=== PATIENT | female | born 1935 | race Caucasian/White ===

== ENCOUNTER 2018-10-24 19:40 | Emergency (ER) | payer MEDICARE ==
[2018-10-24 20:55] VITALS: BP 125/91; PULSE 107
[2018-10-24 20:58] VITALS: O2SAT 96
--- NOTE | 2018-10-24 20:58 | ERPHSYRPT ---
- History of Present Illness Time Seen by Provider: 10/24/18 20:10 Source: patient, family Exam Limitations: no limitations Patient Subjective Stated Complaint: pt states he bp at home was running high. states bottom number was 115. denies headache, blurred vision. pt uses wrist bp cuff at home Triage Nursing Assessment: pt alert and oriented, answers questions approp. pt ambulatory with steady gait noted. respirations nonlabored with lungs cta. puplis equal and reactive. bilat upper and lower ext strength wnl. Physician History: 83 y/o white female presents with high blood pressure at home. pt states she has no sx but has been following her bp today and the dbp elevated and pt concerned. pt wanted to be evaluated. pts bp meds recently increased Timing/Duration: today Severity: mild Modifying Factors: Improves With: medication (improved her bp) Associated Symptoms: denies symptoms Allergies/Adverse Reactions: No Known Drug Allergies Allergy (Verified 10/24/18 20:07) Home Medications: Amiodarone HCl 200 mg [Cordarone 200 MG] 200 mg PO DAILY 10/24/18 [History ] Apixaban [Eliquis] 5 mg PO BID 10/24/18 [History] Aspirin EC 81 mg [Ecotrin 81 mg] 81 mg PO DAILY 10/24/18 [History] Levothyroxine Sodium 100 Mcg [Synthroid 100 Mcg] 100 mcg PO DAILY 10/24/18 [History] Lisinopril 10 mg [Zestril 10 MG] 10 mg PO BID 10/24/18 [History] Metoprolol Tartrate 50 mg [Lopressor 50 MG] 75 mg PO BID 10/24/18 [History ] Multivit with Iron,Minerals [Compete] 1 each PO DAILY 10/24/18 [History] Potassium Chloride 10 Meq Tab* [Klor Con 10 MEQ] 10 meq PO BID 10/24/18 [ History] Simvastatin 10 mg PO DAILY 10/24/18 [History] Hx Tetanus, Diphtheria Vaccination/Date Given: Yes Hx Influenza Vaccination/Date Given: Yes Hx Pneumococcal Vaccination/Date Given: Yes Immunizations Up to Date: Yes - Review of Systems Constitutional: No Symptoms Eyes: No Symptoms Ears, Nose, & Throat: No Symptoms Respiratory: No Symptoms Cardiac: No Symptoms Abdominal/Gastrointestinal: No Symptoms Genitourinary Symptoms: No Symptoms Musculoskeletal: No Symptoms Skin: No Symptoms Neurological: No Symptoms Psychological: No Symptoms Endocrine: No Symptoms Hematologic/Lymphatic: No Symptoms Immunological/Allergic: No Symptoms All Other Systems: Reviewed and Negative - Past Medical History Pertinent Past Medical History: Yes Neurological History: No Pertinent History ENT History: No Pertinent History Cardiac History: Arrhythmia, Congestive Heart Failure, Coronary Artery Disease, Hypertension Endocrine Medical History: Hypothyroidism Musculoskeletal History: No Pertinent History GI Medical History: No Pertinent History History: Renal Disease Psycho-Social History: No Pertinent History Female Reproductive Disorders: No Pertinent History Other Medical History: cardiac stents 2005 - Past Surgical History Past Surgical History: Yes Neuro Surgical History: No Pertinent History Cardiac: No Pertinent History Respiratory: No Pertinent History Gastrointestinal: No Pertinent History Genitourinary: No Pertinent History Musculoskeletal: No Pertinent History Female Surgical History: Hysterectomy - Social History Smoking Status: Former smoker Exposure to second hand smoke: No Drug Use: none Patient Lives Alone: No - Nursing Vital Signs Nursing Vital Signs: Initial Vital Signs Temperature 97.5 F 10/24/18 19:52 Pulse Rate 114 H 10/24/18 19:52 Respiratory Rate 18 10/24/18 19:52 Blood Pressure 158/105 10/24/18 19:52 O2 Sat by Pulse Oximetry 96 10/24/18 19:52 Pain Scale Pain Intensity 0 - Physical Exam General Appearance: no apparent distress, alert, anxiety Eye Exam: PERRL/EOMI Ears, Nose, Throat Exam: normal ENT inspection, moist mucous membranes Neck Exam: normal inspection, non-tender, supple, full range of motion Respiratory Exam: normal breath sounds, lungs clear, airway intact, No chest tenderness, No respiratory distress, No accessory muscle use, No rhonchi, No wheezing, No stridor Cardiovascular Exam: regular rate/rhythm, normal heart sounds, normal peripheral pulses Gastrointestinal/Abdomen Exam: soft, normal bowel sounds, No tenderness, No guarding, No rebound Pelvic Exam: not done Rectal Exam: not done Back Exam: normal inspection, normal range of motion, No CVA tenderness, No vertebral tenderness Extremity Exam: normal inspection, normal range of motion, pelvis stable Neurologic Exam: alert, oriented x 3, 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 keep a log and notify your prescribing doctor. take your medications as prescribed
== END 2018-10-24 21:09 | disposition home or self-care (01) ==
LOC: ED 19:40
DX: I10 Essential (primary) hypertension (principal); Z79.899 Other long term (current) drug therapy; Z79.01 Long term (current) use of anticoagulants
CPT/HCPCS: 99283

== ENCOUNTER 2019-01-24 14:31 | Observation (INO) | payer MEDICARE ==
[2019-01-24] MEDS ORDERED: Sodium Chloride 0.9% 1000 ML 1,000 ML ONE (14:59)
[2019-01-24] MEDS ORDERED: Sodium Chloride 0.9% 1000 ML 1,000 ML IV SCH (15:00)
[2019-01-24 15:12] LABS: BASOPHIL % 0.9 % (0.0-0.4); Basophil (Absolute #) 0.04 (0-0.4); Eosinophil % 1.9 % (0.00-5.0); Eosinophil (Absolute #) 0.09 (0-0.5); Granulocyte Absolute (ANC) 3.62 (1.4-6.9); Hematocrit 41.2 % (35-47); Lymphocyte (Absolute #) 0.49 (1.0-4.6); Lymphocytes % 10.6 % (24.0-44.0); Mean Cell Volume 94.5 fl (78-100); Mean Corpuscular Hemoglobin 29.8 pg (26-32); Mean Corpuscular Hgb Concent. 31.6 g/dl (32-36); Mean Platelet Volume 11.5 fl (6-9.5); Monocytes % 8.6 % (0.0-12.0); Platelet Count 155 K/mm3 (150-450); Red Blood Count 4.36 M/mm3 (4.1-5.4); Red Cell Distribution Width 16.3 % (11.5-14.0); White Blood Count 4.6 K/mm3 (4.0-10.5)
[2019-01-24 15:33] LABS: ALBUMIN 4.1 g/dL (3.5-5.0); ALKALINE PHOSPHATASE 78 U/L (38-126); ANION GAP 16.2 MEQ/L (5-15); BLOOD UREA NITROGEN 21 mg/dL (7-17); CHLORIDE 109 mmol/L (98-107); Calcium 9.3 mg/dL (8.4-10.2); Carbon Dioxide 21 mmol/L (22-30); Creatinine 1 1.02 mg/dL (0.52-1.04); Glucose 120 mg/dL (74-106); NT PRO BNP 6000 pg/mL (0-1800); Potassium 4.9 mmol/L (3.5-5.1); SGOT/AST 36 U/L (14-36); SGPT/ALT 36 U/L (0-35); SODIUM 141 mmol/L (137-145); TROPONIN < 0.012 ng/mL (0.000-0.034); Total Protein 7.2 g/dL (6.3-8.2)
[2019-01-24 15:37] LABS: Slide Review 1 YES
--- NOTE | 2019-01-24 15:44 | ERPHSYRPT ---
- History of Present Illness Time Seen by Provider: 01/24/19 15:42 Source: patient Exam Limitations: no limitations Patient Subjective Stated Complaint: has had pain in right shoulder for two days. states is sewing a lot and thought that's what was causing it but also has hx afib and has been tired lately. Triage Nursing Assessment: ambulated to room per self. skin w/d, color normal, resp easy. denies any chest pain. pulse irregular. Physician History: has had pain in right shoulder for two days. states is sewing a lot and thought that's what was causing it but also has hx afib and has been tired lately. Timing/Duration: yesterday Chest Pain Radiation: neck Nitro Today/Relief: no nitro taken today Aspirin Treatment Today: no aspirin today Allergies/Adverse Reactions: No Known Drug Allergies Allergy (Verified 01/24/19 15:13) Home Medications: Apixaban [Eliquis] 5 mg PO BID 10/24/18 [History] Aspirin EC 81 mg [Ecotrin 81 mg] 81 mg PO DAILY 10/24/18 [History] Levothyroxine Sodium 100 Mcg [Synthroid 100 Mcg] 100 mcg PO DAILY 10/24/18 [History] Lisinopril 10 mg [Zestril 10 MG] 10 mg PO BID 10/24/18 [History] Metoprolol Tartrate 50 mg [Lopressor 50 MG] 75 mg PO BID 10/24/18 [History ] Multivit with Iron,Minerals [Compete] 1 each PO DAILY 10/24/18 [History] Potassium Chloride 10 Meq Tab* [Klor Con 10 MEQ] 10 meq PO BID 10/24/18 [ History] Simvastatin 10 mg PO DAILY 10/24/18 [History] Amlodipine Besylate 2.5 mg PO DAILY 01/24/19 [History] Ascorbic Acid [Vitamin C] 250 mg PO DAILY 01/24/19 [History] Calcium Carbonate [Calcium] 600 mg PO BID 01/24/19 [History] Cholecalciferol (Vitamin D3) [Vitamin D3] 5,000 unit PO DAILY 01/24/19 [History] Hx Tetanus, Diphtheria Vaccination/Date Given: No Hx Influenza Vaccination/Date Given: Yes Hx Pneumococcal Vaccination/Date Given: Yes - Review of Systems Constitutional: No Fever, No Chills Eyes: No Symptoms Ears, Nose, & Throat: No Symptoms Respiratory: No Cough, No Dyspnea Cardiac: No Chest Pain, No Edema, No Syncope Abdominal/Gastrointestinal: No Abdominal Pain, No Nausea, No Vomiting, No Diarrhea Genitourinary Symptoms: No Dysuria Musculoskeletal: Neck Pain, No Back Pain Skin: No Rash Neurological: No Dizziness, No Focal Weakness, No Sensory Changes Psychological: No Symptoms Endocrine: No Symptoms All Other Systems: Reviewed and Negative - Past Medical History Pertinent Past Medical History: Yes Neurological History: No Pertinent History ENT History: No Pertinent History Cardiac History: Arrhythmia, Congestive Heart Failure, Coronary Artery Disease, Hypertension Endocrine Medical History: Hypothyroidism Musculoskeletal History: No Pertinent History GI Medical History: No Pertinent History History: Renal Disease Psycho-Social History: No Pertinent History Female Reproductive Disorders: No Pertinent History Other Medical History: cardiac stents 2005 - Past Surgical History Past Surgical History: Yes Neuro Surgical History: No Pertinent History Cardiac: No Pertinent History Respiratory: No Pertinent History Gastrointestinal: No Pertinent History Genitourinary: No Pertinent History Musculoskeletal: No Pertinent History Female Surgical History: Hysterectomy - Social History Smoking Status: Former smoker Exposure to second hand smoke: No Drug Use: none Patient Lives Alone: No - Nursing Vital Signs Nursing Vital Signs: Initial Vital Signs Temperature 97.3 F 01/24/19 14:41 Pulse Rate 114 H 01/24/19 14:41 Respiratory Rate 16 01/24/19 14:41 Blood Pressure 141/99 01/24/19 14:41 O2 Sat by Pulse Oximetry 96 01/24/19 14:41 Pain Scale Pain Intensity 5 - Physical Exam General Appearance: no apparent distress, alert Eye Exam: PERRL/EOMI, eyes nml inspection Ears, Nose, Throat Exam: normal ENT inspection, moist mucous membranes Neck Exam: normal inspection, non-tender, supple Respiratory Exam: normal breath sounds, lungs clear, No respiratory distress Cardiovascular Exam: regular rate/rhythm, normal heart sounds, No edema Gastrointestinal/Abdomen Exam: soft, No tenderness, No mass Back Exam: normal inspection, No CVA tenderness, No vertebral tenderness Extremity Exam: normal inspection, normal range of motion Neurologic Exam: alert, oriented x 3, cooperative, normal mood/affect, nml cerebellar function, sensation nml, No motor deficits Skin Exam: normal color, warm, dry Lymphatic Exam: No adenopathy SpO2: 96 - Course Nursing assessment & vital signs reviewed: Yes Ordered Tests: Active Orders 24 hr Category Date Time Status Wireless Field Technician STAT Care 01/24/19 14:48 Active EKG-ER Only STAT Care 01/24/19 14:47 Active CHEST 1 VIEW (PORTABLE) Stat Exams 01/24/19 15:15 Taken CHEST WITH CONTRAST [CT] Stat Exams 01/24/19 16:39 Taken CBC W DIFF Stat Lab 01/24/19 15:00 Completed CMP Stat Lab 01/24/19 15:00 Completed D-DIMER QUANTITATION Stat Lab 01/24/19 15:00 Completed NT PRO BNP Stat Lab 01/24/19 15:00 Completed TROPONIN Stat Lab 01/24/19 15:00 Completed Transfer Order Routine Transfer 01/24/19 Ordered Medication Summary Generic Name Dose Route Start Last Admin Trade Name Freq PRN Reason Stop Dose Admin Sodium Chloride 1,000 mls @ 50 mls/hr 01/24/19 15:00 01/24/19 15:06 Sodium Chloride 0.9% 1000 Ml IV 02/23/19 14:59 50 mls/hr .Q20H PATRICIA Administration Lab/Rad Data: Laboratory Result Diagrams 01/24/19 15:00 01/24/19 15:00 Laboratory Results 01/24/19 01/24/19 01/24/19 Range/Units 15:00 15:00 15:00 WBC 4.6 (4.0-10.5) K/mm3 RBC 4.36 (4.1-5.4) M/mm3 Hgb 13.0 (12.0-16.0) gm/dl Hct 41.2 (35-47) % MCV 94.5 (78-100) fl MCH 29.8 (26-32) pg MCHC 31.6 L (32-36) g/dl RDW 16.3 H (11.5-14.0) % Plt Count 155 (150-450) K/mm3 MPV 11.5 H (6-9.5) fl Gran % 78.0 H (36.0-66.0) % Eos # (Auto) 0.09 (0-0.5) Absolute Lymphs (auto) 0.49 L (1.0-4.6) Absolute Monos (auto) 0.40 (0.0-1.3) Lymphocytes % 10.6 L (24.0-44.0) % Monocytes % 8.6 (0.0-12.0) % Eosinophils % 1.9 (0.00-5.0) % Basophils % 0.9 (0.0-0.4) % Absolute Granulocytes 3.62 (1.4-6.9) Basophils # 0.04 (0-0.4) D-Dimer 1170 H* (215-500) ng/mL Sodium 141 (137-145) mmol/L Potassium 4.9 (3.5-5.1) mmol/L Chloride 109 H (98-107) mmol/L Carbon Dioxide 21 L (22-30) mmol/L Anion Gap 16.2 H (5-15) MEQ/L BUN 21 H (7-17) mg/dL Creatinine 1.02 (0.52-1.04) mg/dL Estimated GFR 55.3 ML/MIN Glucose 120 H (74-106) mg/dL Calcium 9.3 (8.4-10.2) mg/dL Total Bilirubin 0.80 (0.2-1.3) mg/dL AST 36 (14-36) U/L ALT 36 H (0-35) U/L Alkaline Phosphatase 78 (38-126) U/L Troponin I < 0.012 (0.000-0.034) ng/mL NT-Pro-B Natriuret Pep 6000 H (0-1800) pg/mL Serum Total Protein 7.2 (6.3-8.2) g/dL Albumin 4.1 (3.5-5.0) g/dL Slides for Path Review YES - Progress Progress: improved Air Movement: good Discussed with : Keaton Counseled pt/family regarding: lab results, diagnosis, need for follow-up, rad results - Departure Time of Disposition: 17:10 Departure Disposition: Observation Clinical Impression: Chest pain, rule out acute myocardial infarction Atrial fibrillation Qualifiers: Atrial fibrillation type: chronic Qualified Code(s): I48.2 - Chronic atrial fibrillation Condition: Fair Critical Care Time: Yes Critical Care Time(excluding separately billable procedures): 30-74 minutes Referrals: ADAN WILLSON MD [Primary Care Provider] -
[2019-01-24] MEDS ORDERED: Zofran 4 MG/2 ML VIAL IV PRN (17:32)
[2019-01-24] MEDS ORDERED: Robitussin AC Syrup Unit Dose Cup PO PRN (17:32)
[2019-01-24] MEDS ORDERED: MILK OF MAGNESIA 30 ML PO PRN (17:32)
[2019-01-24] MEDS ORDERED: Senokot-S Tablet PO PRN (17:32)
[2019-01-24] MEDS ORDERED: Sodium Chloride 0.9% 500 ML 500 ML IV SCH (17:32)
[2019-01-24] MEDS ORDERED: MAALOX ES 30 ML UNIT DOSE PO PRN (17:32)
[2019-01-24] MEDS: TYLENOL 325 MG PO PRN (17:52)
--- NOTE | 2019-01-24 20:53 | XRAY ---
Indication: Right shoulder pain. Elevated d-dimer. Multiple contiguous axial images obtained through the chest using 80 cc Isovue 370 contrast and PE protocol. Comparison: None There is good opacification of the pulmonary arteries to include the lobar and segmental branches. No filling defect or pulmonary embolus. Heart is enlarged. Aorta is mildly arteriosclerotic without aneurysm/dissection. No pathologic mediastinal/hilar lymphadenopathy. Small hiatal hernia. Examination of the lung parenchyma demonstrates small right effusion and tiny left effusion. Elsewhere scattered fibrosis/scarring bilaterally and peripheral right upper lobe calcified granuloma. Bony thorax intact with osteopenia, mild degenerative changes throughout the spine, and mild dextroscoliosis. Limited upper abdomen demonstrates right renal cortical scarring with benign appearing calcification. Impression: 1. Negative pulmonary embolus. 2. Cardiomegaly with bilateral effusions favoring cardiac decompensation. 3. Incidental small hiatal hernia, right upper lobe calcified granuloma, osteopenia, and scoliosis. Comment: Preliminary interpretation was made by C. No critical discrepancy. CTDI 18.34
--- NOTE | 2019-01-24 20:55 | XRAY ---
Indication: Right shoulder pain. Comparison: None Portable chest demonstrates cardiomegaly with tiny bibasilar effusions concerning for cardiac decompensation. Incidental left midlung fibrosis/scarring and right upper lobe calcified granuloma. Bony thorax intact with mild osteopenia, degenerative changes, and mild dextroscoliosis. Impression: Cardiomegaly and bibasilar effusions. Rule out cardiac decompensation.
[2019-01-24] MEDS: Zestril 10 MG PO SCH (22:47)
[2019-01-24] MEDS: Klor Con 10 MEQ PO SCH (22:47)
[2019-01-24] MEDS: ELIQUIS 2.5 MG TABLET PO SCH (22:47)
[2019-01-24] MEDS: Lopressor 50 MG PO SCH (22:47)
[2019-01-25 06:42] LABS: Risk Ratio 3.1
[2019-01-25] MEDS ORDERED: NON-FORMULARY ITEM (Ascorbic Acid [Vitamin C] 250 MG) PO SCH (10:00)
[2019-01-25] MEDS ORDERED: MULTIVIT WITH IRON MINERALS PO SCH (10:00)
[2019-01-25] MEDS ORDERED: NON-FORMULARY ITEM (Cholecalciferol (Vitamin D3) [Vitamin D3] 5,000 UNIT) PO SCH (10:00)
[2019-01-25] MEDS ORDERED: NON-FORMULARY ITEM (Calcium Carbonate [Calcium] 600 MG) PO SCH (10:00)
[2019-01-25] MEDS ORDERED: Ecotrin 325 MG PO SCH (10:00)
[2019-01-25] MEDS: Lopressor 50 MG PO SCH ×2 (10:44→21:50)
[2019-01-25] MEDS: Klor Con 10 MEQ PO SCH ×2 (10:44→21:50)
[2019-01-25] MEDS: Calcium 500MG W/Vit D Tablet PO SCH ×2 (10:44→21:49)
[2019-01-25] MEDS: THERAGRAN MULTIVITAMIN PO SCH (10:44)
[2019-01-25] MEDS: Vitamin C 500 MG PO SCH (10:45)
[2019-01-25] MEDS: Zestril 10 MG PO SCH ×2 (10:45→21:49)
[2019-01-25] MEDS: ELIQUIS 2.5 MG TABLET PO SCH ×2 (10:45→21:49)
[2019-01-25] MEDS: VITAMIN D PO SCH (10:45)
[2019-01-25] MEDS: ECOTRIN 81 MG PO SCH (10:45)
[2019-01-25] MEDS: SYNTHROID 100 MCG PO SCH (10:46)
[2019-01-25] MEDS: Zocor 10MG PO SCH (10:46)
[2019-01-25] MEDS: NORVASC 5 MG PO SCH (10:47)
[2019-01-25] MEDS: TYLENOL 325 MG PO PRN ×2 (10:54→19:43)
--- NOTE | 2019-01-25 12:56 | PCM.HP ---
History of Present Illness - Chief Complaint Chief Complaint: CHEST PAIN for 1-2 days History of Present Illness: is a 83 year old female came to [facility] with right side shoulder pain and palpitations. - Review of Systems Constitutional: No Fever, No Chills Eyes: No Symptoms Ears, Nose, & Throat: No Symptoms Respiratory: No Cough, No Short Of Breath Cardiac: No Chest Pain, No Edema, No Syncope Abdominal/Gastrointestinal: No Abdominal Pain, No Nausea, No Vomiting, No Diarrhea Genitourinary Symptoms: No Dysuria Musculoskeletal: No Back Pain, No Neck Pain Skin: No Rash Neurological: No Dizziness, No Focal Weakness, No Sensory Changes Psychological: No Symptoms Endocrine: No Symptoms Hematologic/Lymphatic: No Symptoms Immunological/Allergic: No Symptoms Medications & Allergies Home Medications: Home Medication List Apixaban [Eliquis] 5 mg PO BID 10/24/18 [History Confirmed 01/24/19] Aspirin EC 81 mg [Ecotrin 81 mg] 81 mg PO DAILY 10/24/18 [History Confirmed 01/24/19] Levothyroxine Sodium 100 Mcg [Synthroid 100 Mcg] 100 mcg PO DAILY 10/24/18 [History Confirmed 01/24/19] Lisinopril 10 mg [Zestril 10 MG] 10 mg PO BID 10/24/18 [History Confirmed 01/24/19] Metoprolol Tartrate 50 mg [Lopressor 50 MG] 75 mg PO BID 10/24/18 [ History Confirmed 01/24/19] Multivit with Iron,Minerals [Compete] 1 each PO DAILY 10/24/18 [History Confirmed 01/24/19] Potassium Chloride 10 Meq Tab* [Klor Con 10 MEQ] 10 meq PO BID 10/24/18 [ History Confirmed 01/24/19] Simvastatin 10 mg PO DAILY 10/24/18 [History Confirmed 01/24/19] Amlodipine Besylate 2.5 mg PO DAILY 01/24/19 [History Confirmed 01/24/19] Ascorbic Acid [Vitamin C] 250 mg PO DAILY 01/24/19 [History Confirmed 01/24/19] Calcium Carbonate [Calcium] 600 mg PO BID 01/24/19 [History Confirmed 01/24/19] Cholecalciferol (Vitamin D3) [Vitamin D3] 5,000 unit PO DAILY 01/24/19 [History Confirmed 01/24/19] Allergies/Adverse Reactions: Allergies Allergy/AdvReac Type Severity Reaction Status Date / Time No Known Drug Allergies Allergy Verified 01/24/19 15:13 - Past Medical History Past Medical History: Yes Neurological History: No Pertinent History ENT History: No Pertinent History Cardiac History: Arrhythmia, Congestive Heart Failure, Coronary Artery Disease, Hypertension Respiratory History: CHF Endocrine Medical History: Hypothyroidism Musculoskelatal History: No Pertinent History GI Medical History: No Pertinent History History: Renal Disease Pyscho-Social History: No Pertinent History Reproductive Disorders: No Pertinent History Comment: cardiac stents 2005 - Past Surgical History Past Surgical History: Yes Neuro Surgical History: No Pertinent History Cardiac History: No Pertinent History Respiratory Surgery: No Pertinent History GI Surgical History: No Pertinent History Genitourinary Surgical Hx: No Pertinent History Musculskeletal Surgical Hx: No Pertinent History Female Surgical History: Hysterectomy - Social History Smoking Status: Never smoker Exposure to second hand smoke: No Alcohol: None Drug Use: none - Physical Exam Vital Signs: Vital Signs - 24 hr Temp Pulse Resp BP Pulse Ox 01/25/19 07:43 98.6 F 116 H 18 139/86 93 L 01/25/19 07:00 98.6 F 116 H 18 139/86 93 L 01/25/19 04:42 95 01/25/19 02:35 97.6 F 111 H 18 158/96 95 01/25/19 01:00 95 01/24/19 23:00 98.2 F 114 H 18 125/76 92 L 01/24/19 19:58 98.2 F 112 H 18 135/95 95 01/24/19 19:51 92 L 01/24/19 17:32 98.2 F 112 H 18 135/95 95 01/24/19 17:15 131/89 01/24/19 17:10 96 01/24/19 15:53 103 H 18 121/94 91 L 01/24/19 14:41 97.3 F 114 H 16 141/99 96 General Appearance: no apparent distress, alert Neurologic Exam: alert, oriented x 3, cooperative, normal mood/affect, nml cerebellar function, nml station & gait, sensation nml, No motor deficits Eye Exam: PERRL/EOMI, eyes nml inspection Ears, Nose, Throat Exam: normal ENT inspection, TMs normal, pharynx normal, moist mucous membranes Neck Exam: normal inspection, non-tender, supple, full range of motion Respiratory Exam: normal breath sounds, lungs clear, No respiratory distress Cardiovascular Exam: irregular Gastrointestinal/Abdomen Exam: soft, normal bowel sounds, No tenderness, No mass Back Exam: normal inspection, normal range of motion, No CVA tenderness, No vertebral tenderness Extremity Exam: normal inspection, normal range of motion, pelvis stable Skin Exam: normal color, warm, dry, No rash Lymphatic Exam: No adenopathy Results - Labs Lab/Micro Results: Lab Results-Last 24 Hours 01/24/19 01/24/19 01/24/19 Range/Units 15:00 15:00 15:00 WBC 4.6 (4.0-10.5) K/mm3 RBC 4.36 (4.1-5.4) M/mm3 Hgb 13.0 (12.0-16.0) gm/dl Hct 41.2 (35-47) % MCV 94.5 (78-100) fl MCH 29.8 (26-32) pg MCHC 31.6 L (32-36) g/dl RDW 16.3 H (11.5-14.0) % Plt Count 155 (150-450) K/mm3 MPV 11.5 H (6-9.5) fl Gran % 78.0 H (36.0-66.0) % Eos # (Auto) 0.09 (0-0.5) Absolute Lymphs (auto) 0.49 L (1.0-4.6) Absolute Monos (auto) 0.40 (0.0-1.3) Lymphocytes % 10.6 L (24.0-44.0) % Monocytes % 8.6 (0.0-12.0) % Eosinophils % 1.9 (0.00-5.0) % Basophils % 0.9 (0.0-0.4) % Absolute Granulocytes 3.62 (1.4-6.9) Basophils # 0.04 (0-0.4) D-Dimer 1170 H* (215-500) ng/mL Sodium 141 (137-145) mmol/L Potassium 4.9 (3.5-5.1) mmol/L Chloride 109 H (98-107) mmol/L Carbon Dioxide 21 L (22-30) mmol/L Anion Gap 16.2 H (5-15) MEQ/L BUN 21 H (7-17) mg/dL Creatinine 1.02 (0.52-1.04) mg/dL Estimated GFR 55.3 ML/MIN Glucose 120 H (74-106) mg/dL Calcium 9.3 (8.4-10.2) mg/dL Total Bilirubin 0.80 (0.2-1.3) mg/dL AST 36 (14-36) U/L ALT 36 H (0-35) U/L Alkaline Phosphatase 78 (38-126) U/L Troponin I < 0.012 (0.000-0.034) ng/mL NT-Pro-B Natriuret Pep 6000 H (0-1800) pg/mL Serum Total Protein 7.2 (6.3-8.2) g/dL Albumin 4.1 (3.5-5.0) g/dL Triglycerides (30-150) mg/dL Cholesterol (50-200) mg/dL LDL Cholesterol (30-100) mg/dL HDL Cholesterol (40-60) mg/dL Heart Disease Risk Ratio Slides for Path Review YES 01/25/19 Range/Units 05:55 WBC (4.0-10.5) K/mm3 RBC (4.1-5.4) M/mm3 Hgb (12.0-16.0) gm/dl Hct (35-47) % MCV (78-100) fl MCH (26-32) pg MCHC (32-36) g/dl RDW (11.5-14.0) % Plt Count (150-450) K/mm3 MPV (6-9.5) fl Gran % (36.0-66.0) % Eos # (Auto) (0-0.5) Absolute Lymphs (auto) (1.0-4.6) Absolute Monos (auto) (0.0-1.3) Lymphocytes % (24.0-44.0) % Monocytes % (0.0-12.0) % Eosinophils % (0.00-5.0) % Basophils % (0.0-0.4) % Absolute Granulocytes (1.4-6.9) Basophils # (0-0.4) D-Dimer (215-500) ng/mL Sodium (137-145) mmol/L Potassium (3.5-5.1) mmol/L Chloride (98-107) mmol/L Carbon Dioxide (22-30) mmol/L Anion Gap (5-15) MEQ/L BUN (7-17) mg/dL Creatinine (0.52-1.04) mg/dL Estimated GFR ML/MIN Glucose (74-106) mg/dL Calcium (8.4-10.2) mg/dL Total Bilirubin (0.2-1.3) mg/dL AST (14-36) U/L ALT (0-35) U/L Alkaline Phosphatase (38-126) U/L Troponin I (0.000-0.034) ng/mL NT-Pro-B Natriuret Pep (0-1800) pg/mL Serum Total Protein (6.3-8.2) g/dL Albumin (3.5-5.0) g/dL Triglycerides 122 (30-150) mg/dL Cholesterol 116 (50-200) mg/dL LDL Cholesterol 66 (30-100) mg/dL HDL Cholesterol 37 L (40-60) mg/dL Heart Disease Risk Ratio 3.1 Slides for Path Review - Radiology Impressions Radiology Exams & Impressions: Radiology Procedures Category Date Time Status CHEST 1 VIEW (PORTABLE) Stat Exams 01/24/19 15:15 Completed CHEST WITH CONTRAST [CT] Stat Exams 01/24/19 16:39 Completed - Other Procedures and Tests Respiratory Therapy 01/24/19 17:32 Oxygen Nasal Cannula 2 lpm 01/24/19 21:50 Respiratory Therapy Assessment DAILY 01/26/19 05:00 EKG ONCE 01/27/19 17:41 EKG ONCE Assessment/Plan (1) Chest pain, rule out acute myocardial infarction Current Visit: Yes Status: Acute Assessment & Plan: troponin negative Code(s): R07.9 - CHEST PAIN, UNSPECIFIED (2) Atrial fibrillation Current Visit: Yes Status: Acute Qualifiers: Atrial fibrillation type: chronic Qualified Code(s): I48.2 - Chronic atrial fibrillation Code(s): I48.91 - UNSPECIFIED ATRIAL FIBRILLATION (3) Hypertension Current Visit: No Status: Chronic Code(s): I10 - ESSENTIAL (PRIMARY) HYPERTENSION
[2019-01-25] MEDS: Cardizem CD 120 MG PO SCH (14:53)
[2019-01-25] MEDS ORDERED: Robitussin AC Syrup Unit Dose Cup PO ONE (15:00)
[2019-01-25] MEDS: Robitussin AC Syrup Unit Dose Cup PO SCH ×2 (18:04→21:48)
[2019-01-26] MEDS: TYLENOL 325 MG PO PRN ×3 (03:30→18:49)
[2019-01-26] MEDS: Robitussin AC Syrup Unit Dose Cup PO SCH (08:35)
--- NOTE | 2019-01-26 09:20 | PCM.NOTE ---
Date and Time: 01/26/19918 Subjective Assessment: doing ok - Review of Systems Constitutional: No Fever, No Chills Eyes: No Symptoms Ears, Nose, & Throat: No Symptoms Respiratory: No Cough, No Short Of Breath Cardiac: No Chest Pain, No Edema, No Syncope Abdominal/Gastrointestinal: No Abdominal Pain, No Nausea, No Vomiting, No Diarrhea Genitourinary Symptoms: No Dysuria Musculoskeletal: No Back Pain, No Neck Pain Skin: No Rash Neurological: No Dizziness, No Focal Weakness, No Sensory Changes Psychological: No Symptoms Endocrine: No Symptoms Hematologic/Lymphatic: No Symptoms Immunological/Allergic: No Symptoms Objective Exam General Appearance: no apparent distress, alert Neurologic Exam: alert, oriented x 3, cooperative, normal mood/affect, nml cerebellar function, sensation nml, No motor deficits Skin Exam: normal color, warm, dry Eye Exam: PERRL, EOMI, eyes nml inspection Ears, Nose, Throat Exam: normal ENT inspection, pharynx normal, moist mucous membranes Neck Exam: normal inspection, non-tender, supple, full range of motion Respiratory Exam: normal breath sounds, lungs clear, No respiratory distress Cardiovascular Exam: regular rate/rhythm, normal heart sounds Gastrointestinal/Abdomen Exam: soft, No tenderness, No mass Extremity Exam: normal inspection, normal range of motion Back Exam: normal inspection, normal range of motion, No CVA tenderness, No vertebral tenderness Pelvic Exam: deferred Rectal Exam: deferred OBJECTIVE DATA Vital Signs: Vital Signs - 24 hr Temp Pulse Resp BP Pulse Ox 01/26/19 07:00 98.0 F 99 H 18 133/91 95 01/26/19 06:57 92 L 01/26/19 05:00 91 L 01/26/19 03:29 97.7 F 86 29 H 137/95 91 L 01/26/19 01:00 91 L 01/26/19 00:00 98.5 F 94 H 16 136/94 91 L 01/25/19 21:00 91 L 01/25/19 20:00 99.5 F 89 23 137/76 94 L 01/25/19 17:00 93 L 01/25/19 15:00 98.0 F 106 H 18 150/93 93 L Oxygen-Last 24 hours O2 Percentage 2 Liters = 28% O2 Percentage 2 Liters = 28% Pain Assessment - Last Documented Pain Intensity 5 Pain Scale Used FLACC Intake and Output: Intake & Output 01/23/19 01/24/19 01/25/19 01/26/19 11:59 11:59 11:59 11:59 Intake Total 1038 2050 Output Total 775 800 Balance 263 1250 Weight 79.2 kg 78.6 kg Radiology Exams: Radiology Procedures Category Date Time Status CHEST 1 VIEW (PORTABLE) Stat Exams 01/24/19 15:15 Completed CHEST WITH CONTRAST [CT] Stat Exams 01/24/19 16:39 Completed Assessment/Plan (1) Chest pain, rule out acute myocardial infarction Current Visit: Yes Status: Resolved Code(s): R07.9 - CHEST PAIN, UNSPECIFIED (2) Atrial fibrillation Current Visit: Yes Status: Acute Qualifiers: Atrial fibrillation type: chronic Qualified Code(s): I48.2 - Chronic atrial fibrillation Code(s): I48.91 - UNSPECIFIED ATRIAL FIBRILLATION (3) Hypertension Current Visit: Yes Status: Chronic Qualifiers: Hypertension type: essential hypertension Qualified Code(s): I10 - Essential (primary) hypertension Code(s): I10 - ESSENTIAL (PRIMARY) HYPERTENSION
[2019-01-26] MEDS: Lopressor 50 MG PO SCH ×2 (11:50→22:09)
[2019-01-26] MEDS: Zestril 10 MG PO SCH ×2 (11:51→22:08)
[2019-01-26] MEDS: ELIQUIS 2.5 MG TABLET PO SCH ×2 (11:51→22:08)
[2019-01-26] MEDS: SYNTHROID 100 MCG PO SCH (11:51)
[2019-01-26] MEDS: Cardizem CD 120 MG PO SCH (11:51)
[2019-01-26] MEDS: VITAMIN D PO SCH (11:51)
[2019-01-26] MEDS: THERAGRAN MULTIVITAMIN PO SCH (11:52)
[2019-01-26] MEDS: Vitamin C 500 MG PO SCH (11:52)
[2019-01-26] MEDS: ECOTRIN 81 MG PO SCH (11:52)
[2019-01-26] MEDS: Calcium 500MG W/Vit D Tablet PO SCH ×2 (11:52→22:09)
[2019-01-26] MEDS: Klor Con 10 MEQ PO SCH ×2 (11:53→22:09)
[2019-01-26] MEDS: Zocor 10MG PO SCH (11:53)
[2019-01-26] MEDS: NORVASC 5 MG PO SCH (11:53)
[2019-01-26] MEDS: Robitussin AC Syrup Unit Dose Cup PO PRN (18:49)
[2019-01-26] MEDS: Lasix 20 MG/2 ML IV SCH (19:44)
[2019-01-27] MEDS: TYLENOL 325 MG PO PRN ×4 (04:33→22:50)
--- NOTE | 2019-01-27 07:51 | CONS ---
CONSULT DATE: 01/26/2019 BRIEF HISTORY: This is an 83 year-old female who was seen because of atrial fibrillation and right shoulder pain. The patient stated that she was not feeling well and apparently she had some flu-like symptoms. She was then brought to the emergency room and was found to be in atrial fibrillation. She has been anticoagulated with Eliquis. She also complained of pain above the right shoulder which was producible by pressing on it. She had been doing a lot of knitting and using a computer. The patient has been admitted previously for atrial fibrillation and chest pains. She had a pharmacologic stress test done in September 2018 that showed the area of ischemia that was treated medically. She is known to have coronary artery disease and had undergone percutaneous intervention several years ago. CARDIAC RISK FACTORS: Negative for diabetes. Positive for hypertension. She has a remote history of smoking. She has history of hyperlipidemia and on statin therapy. CURRENT MEDICATIONS: Amlodipine, Eliquis, ascorbic acid, aspirin, calcium, vitamin D, levothyroxine, lisinopril, metoprolol, multivitamins, potassium, Simvastatin. REVIEW OF SYSTEMS: ACCOUNT SERVICES COORDINATOR: No history of stroke. No seizures. RESPIRATORY: No chronic cough or hemoptysis. GI: No history of heartburn. No diarrhea or constipation. : Negative for dysuria or hematuria. She has a history of renal insufficiency. PERIPHERAL VASCULAR: No history of DVT or claudication. HEMATOLOGY: No history of blood dyscrasia. ENDOCRINE: No significant weight gain or weight loss. CONSTITUTIONAL: She has had some febrile episodes. PAST SURGICAL HISTORY: Included partial hysterectomy. SOCIAL HISTORY: She is a . She has no significant alcohol intake. PHYSICAL EXAMINATION: Blood pressure is 110/60, heart rate is about 86, respirations 114. GENERAL: The patient is an elderly female who is alert, oriented who is not in any form of distress. HEENT: Unremarkable. NECK: No significant JVD. BACK: There is some tenderness on the level of the shoulder close to the spine. CHEST: The breath sounds are clear bilaterally. CARDIAC: Heart tones are variable. The rhythm is atrial fibrillation. There is S3 gallop. There is soft apical systolic murmur. ABDOMEN: Soft with normal bowel sounds. EXTREMITIES: No significant edema with decreased distal pulses. LAB DATA AND DIAGNOSTIC TESTS: Hemoglobin 13.0, PLT 155,000. Chemistry shows her creatinine 1.0 with glomerular filtration rate of 55. The troponin I is less than 0.012. ProBNP is 6,000. The chest CT was negative for pulmonary embolism; there is cardiomegaly with bilateral effusion on the right side. IMPRESSION: In essence the patient has: 1) Chronic atrial fibrillation currently anticoagulated and heart rate is controlled. 2) Chest pains somewhat atypical for angina. She does have an abnormal Cardiolite test. 3) Elevated BNP likely related to CHF . Will give IV diuretics RECOMMENDATION: We are going to go ahead and get an echocardiogram to reassess left ventricular function. Meanwhile continue with current medical regimen. I will follow up with you after the echocardiogram is performed.
[2019-01-27] MEDS: Zestril 10 MG PO SCH ×2 (08:35→22:50)
[2019-01-27] MEDS: Robitussin AC Syrup Unit Dose Cup PO PRN ×2 (08:35→22:50)
[2019-01-27] MEDS: VITAMIN D PO SCH ×2 (08:35→08:43)
[2019-01-27] MEDS: NORVASC 5 MG PO SCH (08:36)
[2019-01-27] MEDS: Calcium 500MG W/Vit D Tablet PO SCH ×2 (08:36→22:50)
[2019-01-27] MEDS: Vitamin C 500 MG PO SCH (08:36)
[2019-01-27] MEDS: ELIQUIS 2.5 MG TABLET PO SCH ×2 (08:36→22:51)
[2019-01-27] MEDS: ECOTRIN 81 MG PO SCH (08:37)
[2019-01-27] MEDS: THERAGRAN MULTIVITAMIN PO SCH (08:37)
[2019-01-27] MEDS: Klor Con 10 MEQ PO SCH ×2 (08:37→22:50)
[2019-01-27] MEDS: Cardizem CD 120 MG PO SCH (08:37)
[2019-01-27] MEDS: SYNTHROID 100 MCG PO SCH (08:37)
[2019-01-27] MEDS: Lasix 20 MG/2 ML IV SCH (08:38)
[2019-01-27] MEDS: Zocor 10MG PO SCH (08:38)
[2019-01-27] MEDS: Lopressor 50 MG PO SCH ×2 (08:38→22:51)
[2019-01-27 11:38] LABS: ALBUMIN 3.5 g/dL (3.5-5.0); ANION GAP 12.8 MEQ/L (5-15); Calcium 9.6 mg/dL (8.4-10.2); Creatinine 1 1.01 mg/dL (0.52-1.04); Potassium 3.9 mmol/L (3.5-5.1)
--- NOTE | 2019-01-27 12:12 | PCM.NOTE ---
Date and Time: 01/27/19 1211 Subjective Assessment: doing better - Review of Systems Constitutional: No Fever, No Chills Eyes: No Symptoms Ears, Nose, & Throat: No Symptoms Respiratory: No Cough, No Short Of Breath Cardiac: No Chest Pain, No Edema, No Syncope Abdominal/Gastrointestinal: No Abdominal Pain, No Nausea, No Vomiting, No Diarrhea Genitourinary Symptoms: No Dysuria Musculoskeletal: No Back Pain, No Neck Pain Skin: No Rash Neurological: No Dizziness, No Focal Weakness, No Sensory Changes Psychological: No Symptoms Endocrine: No Symptoms Hematologic/Lymphatic: No Symptoms Immunological/Allergic: No Symptoms Objective Exam General Appearance: no apparent distress, alert Neurologic Exam: alert, oriented x 3, cooperative, normal mood/affect, nml cerebellar function, sensation nml, No motor deficits Skin Exam: normal color, warm, dry Eye Exam: PERRL, EOMI, eyes nml inspection Ears, Nose, Throat Exam: normal ENT inspection, pharynx normal, moist mucous membranes Neck Exam: normal inspection, non-tender, supple, full range of motion Respiratory Exam: normal breath sounds, lungs clear, No respiratory distress Cardiovascular Exam: regular rate/rhythm, normal heart sounds Gastrointestinal/Abdomen Exam: soft, No tenderness, No mass Extremity Exam: normal inspection, normal range of motion Back Exam: normal inspection, normal range of motion, No CVA tenderness, No vertebral tenderness Pelvic Exam: deferred Rectal Exam: deferred OBJECTIVE DATA Vital Signs: Vital Signs - 24 hr Temp Pulse Resp BP Pulse Ox 01/27/19 11:54 95 01/27/19 11:53 97.7 F 92 H 20 115/56 97 01/27/19 09:00 94 L 01/27/19 08:24 97.4 F 92 H 18 154/102 95 01/27/19 05:00 97.6 F 96 H 18 118/58 94 L 01/27/19 01:00 93 L 01/27/19 00:24 98 F 62 18 118/70 93 L 01/26/19 21:31 98.4 F 71 18 125/82 92 L 01/26/19 21:06 95 01/26/19 17:00 94 L 01/26/19 15:00 98.4 F 84 18 125/70 94 L 01/26/19 13:00 93 L Oxygen-Last 24 hours O2 Percentage 3 Liters = 32% O2 Percentage 3 Liters = 32% O2 Percentage 2 Liters = 28% Pain Assessment - Last Documented Pain Intensity 2 Pain Scale Used 0-10 Pain Scale Intake and Output: Intake & Output 01/25/19 01/26/19 01/27/19 01/28/19 11:59 11:59 11:59 11:59 Intake Total 1038 2050 1340 Output Total 879 315 5850 Balance 263 1250 -2810 Weight 79.2 kg 78.6 kg 78.8 kg Lab Results: Lab Results-Last 24 Hours 01/27/19 01/27/19 Range/Units 10:43 10:43 Sodium 139 (137-145) mmol/L Potassium 3.9 (3.5-5.1) mmol/L Chloride 101 (98-107) mmol/L Carbon Dioxide 29 (22-30) mmol/L Anion Gap 12.8 (5-15) MEQ/L BUN 20 H (7-17) mg/dL Creatinine 1.01 (0.52-1.04) mg/dL Estimated GFR 55.9 ML/MIN Glucose 103 (74-106) mg/dL Calcium 9.6 (8.4-10.2) mg/dL Phosphorus 4.0 (2.5-4.5) mg/dL NT-Pro-B Natriuret Pep 4240 H (0-1800) pg/mL Albumin 3.5 (3.5-5.0) g/dL Radiology Exams: Radiology Procedures Category Date Time Status ECHO W/2D AND DOPPLER [US] Routine Exams 01/27/19 08:00 Taken Assessment/Plan (1) Chest pain, rule out acute myocardial infarction Current Visit: Yes Status: Resolved Code(s): R07.9 - CHEST PAIN, UNSPECIFIED (2) Atrial fibrillation Current Visit: Yes Status: Acute Qualifiers: Atrial fibrillation type: chronic Qualified Code(s): I48.2 - Chronic atrial fibrillation Code(s): I48.91 - UNSPECIFIED ATRIAL FIBRILLATION (3) Hypertension Current Visit: Yes Status: Chronic Qualifiers: Hypertension type: essential hypertension Qualified Code(s): I10 - Essential (primary) hypertension Code(s): I10 - ESSENTIAL (PRIMARY) HYPERTENSION
--- NOTE | 2019-01-27 13:14 | ECHO ---
Transthoracic echocardiographic examination and color Doppler was done on 01/27/2019. INDICATION: Atrial fibrillation, congestive heart failure. IMPRESSION: 1) GLOBAL LEFT VENTRICULAR HYPOKINESIA. EJECTION FRACTION BETWEEN 30 AND 40%. 2) MODERATE MITRAL REGURGITATION. 3) MODERATE AORTIC REGURGITATION. 4) MODERATE TRICUSPID REGURGITATION. RIGHT VENTRICULAR SYSTOLIC PRESSURE OF 44 MM OF MERCURY. 5) MILD PULMONIC INSUFFICIENCY. 6) MILDLY DILATED RIGHT VENTRICLE. 7) BIATRIAL ENLARGEMENT. 8) LEFT VENTRICULAR HYPERTROPHY. The left ventricle is visualized and demonstrated a global-type of hypokinesia. Ejection fraction between 30 to 40%. There is concentric left ventricular hypertrophy. The mitral valve is seen and this opens adequately. There is moderate mitral regurgitation. Left atrium is enlarged. The aortic valve is sclerotic. There is no significant gradient across the left ventricular outflow tract. There is moderate aortic regurgitation. The right side chambers are mildly dilated. There is moderate tricuspid regurgitation. The right ventricular systolic pressure of 49 mm of Mercury. There is also mild pulmonic insufficiency.
[2019-01-28] MEDS: Calcium 500MG W/Vit D Tablet PO SCH (10:12)
[2019-01-28] MEDS: ECOTRIN 81 MG PO SCH (10:13)
[2019-01-28] MEDS: ELIQUIS 2.5 MG TABLET PO SCH (10:13)
[2019-01-28] MEDS: Lopressor 50 MG PO SCH (10:13)
[2019-01-28] MEDS: NORVASC 5 MG PO SCH (10:14)
[2019-01-28] MEDS: Lasix 20 MG/2 ML IV SCH (10:14)
[2019-01-28] MEDS: Zocor 10MG PO SCH (10:14)
[2019-01-28] MEDS: Vitamin C 500 MG PO SCH (10:14)
[2019-01-28] MEDS: SYNTHROID 100 MCG PO SCH (10:15)
[2019-01-28] MEDS: THERAGRAN MULTIVITAMIN PO SCH (10:15)
[2019-01-28] MEDS: Klor Con 10 MEQ PO SCH (10:15)
[2019-01-28] MEDS: Zestril 10 MG PO SCH (10:15)
[2019-01-28] MEDS: TYLENOL 325 MG PO PRN (10:20)
[2019-01-28] MEDS: Robitussin AC Syrup Unit Dose Cup PO PRN (10:21)
[2019-01-28] MEDS: VITAMIN D PO SCH (10:22)
[2019-01-28 11:58] VITALS: BP 114/76; PULSE 110; O2SAT 92
[2019-01-28] MEDS ORDERED: Lopressor 50 MG PO SCH (22:00)
[2019-01-29] MEDS ORDERED: LASIX 20 MG PO SCH (10:00)
[2019-01-29] MEDS ORDERED: Klor Con 10 MEQ PO SCH (10:00)
== END 2019-01-28 13:55 | disposition home or self-care (01) ==
LOC: ED 14:31 → MED SURG 17:29
PROVIDERS: ADMIT General Practice; ATTEND General Practice
DX: R07.9 Chest pain, unspecified (principal); I48.91 Unspecified atrial fibrillation; M25.511 Pain in right shoulder; I10 Essential (primary) hypertension; E03.9 Hypothyroidism, unspecified; I50.9 Heart failure, unspecified; E78.5 Hyperlipidemia, unspecified; R79.89 Other specified abnormal findings of blood chemistry; Z79.01 Long term (current) use of anticoagulants; Z79.899 Other long term (current) drug therapy
CPT/HCPCS: 36415; 71045; 71260; 80053; 80061; 80069; 83721; 83880; 84484; 85025; 85379; 93005; 93041; 93268; 93306; 94760; 96360; 96361; 99285; G0378; J1940; A9270-GY

== ENCOUNTER 2020-01-10 14:02 | Observation (INO) | payer MEDICARE ==
[2020-01-10] MEDS ORDERED: Zofran 4 MG/2 ML VIAL IV PRN (14:24)
[2020-01-10] MEDS ORDERED: Sodium Chloride 0.9% 1000 ML 1,000 ML IV STA (14:24)
--- NOTE | 2020-01-10 14:27 | PCM.HP.ADD ---
Addendum to History & Physical - History & Physical Addendum Addendum to History & Physical: This certifies that the History & Physical in the electronic chart reflects the current health status of the patient. If there are changes in the H&P these changes/exceptions are listed as follows.
[2020-01-10 14:53] LABS: Absolute Neutrophil Ct (ANC) 7.64 (1.4-6.9); BASOPHIL % 0.2 % (0.0-0.4); Basophil (Absolute #) 0.02 (0-0.4); Eosinophil % 0.1 % (0.00-5.0); Eosinophil (Absolute #) 0.01 (0-0.5); Hematocrit 45.6 % (35-47); Hemoglobin 14.5 gm/dl (12.0-16.0); Lymphocyte (Absolute #) 0.78 (1.0-4.6); Lymphocytes % 8.7 % (24.0-44.0); Mean Cell Volume 91.4 fl (78-100); Mean Corpuscular Hemoglobin 29.1 pg (26-32); Mean Corpuscular Hgb Concent. 31.8 g/dl (32-36); Mean Platelet Volume 10.8 fl (7.5-11.0); Monocyte (Absolute #) 0.53 (0.0-1.3); Monocytes % 5.9 % (0.0-12.0); Neutrophil % 85.1 % (36.0-66.0); Platelet Count 192 K/mm3 (150-450); Red Blood Count 4.99 M/mm3 (4.1-5.4); Red Cell Distribution Width 15.4 % (11.5-14.0)
[2020-01-10 15:06] LABS: ALBUMIN 4.6 g/dL (3.5-5.0); ALKALINE PHOSPHATASE 100 U/L (38-126); ANION GAP 15.7 MEQ/L (5-15); BLOOD UREA NITROGEN 18 mg/dL (7-17); CHLORIDE 104 mmol/L (98-107); Calcium 9.9 mg/dL (8.4-10.2); Carbon Dioxide 26 mmol/L (22-30); Creatinine 1 0.77 mg/dL (0.52-1.04); Glucose 135 mg/dL (74-106); Potassium 3.7 mmol/L (3.5-5.1); SGOT/AST 23 U/L (14-36); SGPT/ALT 14 U/L (0-35); SODIUM 142 mmol/L (137-145); Total Protein 8.2 g/dL (6.3-8.2)
[2020-01-10 15:29] LABS: INFLUENZA A NEGATIVE (NEGATIVE); INFLUENZA B NEGATIVE (NEGATIVE); RESPIRATORY SYNCTIAL VIRUS NEGATIVE (Negative)
[2020-01-10] MEDS: Sodium Chloride 0.9% 1000 ML 1,000 ML IV SCH (16:11)
[2020-01-10] MEDS ORDERED: Phenergan 25 MG INJ IV PRN (17:56)
[2020-01-10] MEDS ORDERED: ENTRESTO 49 MG-51 MG TABLET ONE (19:59)
[2020-01-10] MEDS ORDERED: ELIQUIS 2.5 MG TABLET ONE (19:59)
[2020-01-10] MEDS ORDERED: Lopressor 50 MG ONE (20:00)
[2020-01-10] MEDS ORDERED: ZOCOR 20MG ONE (20:00)
[2020-01-10] MEDS: ELIQUIS 2.5 MG TABLET PO SCH (20:44)
[2020-01-10] MEDS: ENTRESTO 49 MG-51 MG TABLET PO SCH (20:44)
[2020-01-10] MEDS: ZOCOR 20MG PO SCH (20:44)
[2020-01-10] MEDS: Lopressor 50 MG PO SCH (20:44)
[2020-01-10] MEDS ORDERED: NON-FORMULARY ITEM (Apixaban [Eliquis] 2.5 MG) PO SCH (22:00)
[2020-01-11] MEDS: Sodium Chloride 0.9% 1000 ML 1,000 ML IV SCH ×2 (04:57→15:22)
--- NOTE | 2020-01-11 08:36 | XRAY ---
Indication: Vomiting. Multiple contiguous axial images obtained through the abdomen and pelvis without contrast as ordered. Comparison: None Lung bases demonstrate fibrosis/scarring. No intrauterine effusion. Heart is enlarged. Distal esophagus demonstrates mild circumferential wall thickening, possible reflux esophagitis. Stomach is moderately fluid distended either from recent ingestion versus gastroparesis. Noncontrasted stomach and bowel loops appear nonobstructed. Mild sigmoid diverticulosis without diverticulitis. No free fluid/air. Hysterectomy reported. Right mid to upper pole renal cortical scarring with punctate calcification. Calcified splenic granulomas. Remaining liver, gallbladder, pancreas, spleen, adrenal glands, kidneys, ureters, and bladder appear unremarkable for noncontrast exam. Heavy scattered vascular calcifications. Abdominal aorta demonstrates large focal arteriosclerotic calcification just below the main renal arteries probably producing high-grade stenosis. Osseous structures demonstrate osteopenia, mild/moderate multilevel thoracolumbar degenerative spondylosis, and mild levoscoliosis. Impression: 1. Fluid distended stomach either recent ingestion versus gastroparesis. 2. Sigmoid diverticulosis and right renal scarring. 3. Extensive diffuse arteriosclerotic disease. Focal large aortic calcification just below the renal arteries probably producing high-grade stenosis. CTA may yield further information. 4. Distal esophageal wall thickening. Rule out reflux esophagitis. 5. Cardiomegaly.
[2020-01-11] MEDS: ELIQUIS 2.5 MG TABLET PO SCH ×2 (09:06→21:08)
[2020-01-11] MEDS: ENTRESTO 49 MG-51 MG TABLET PO SCH ×2 (09:06→21:08)
[2020-01-11] MEDS: Calcium 500MG W/Vit D Tablet PO SCH (09:06)
[2020-01-11] MEDS: Klor Con 10 MEQ PO SCH (09:06)
[2020-01-11] MEDS: ECOTRIN 81 MG PO SCH (09:06)
[2020-01-11] MEDS: Mobic 7.5 MG PO SCH (09:07)
[2020-01-11] MEDS: NORVASC 5 MG PO SCH (09:07)
[2020-01-11] MEDS: LASIX 20 MG PO SCH (09:07)
[2020-01-11] MEDS: Lopressor 50 MG PO SCH ×2 (09:07→21:08)
[2020-01-11] MEDS: SYNTHROID 100 MCG PO SCH (09:08)
[2020-01-11] MEDS ORDERED: Zocor 10MG PO SCH (10:00)
[2020-01-11] MEDS ORDERED: NON-FORMULARY ITEM (Calcium Carbonate [Calcium] 600 MG) PO SCH (10:00)
--- NOTE | 2020-01-11 12:48 | PCM.NOTE ---
Date and Time: 01/11/20 1247 Subjective Assessment: doing ok - Review of Systems Constitutional: No Fever, No Chills Eyes: No Symptoms Ears, Nose, & Throat: No Symptoms Respiratory: No Cough, No Short Of Breath Cardiac: No Chest Pain, No Edema, No Syncope Abdominal/Gastrointestinal: No Abdominal Pain, No Nausea, No Vomiting, No Diarrhea Genitourinary Symptoms: No Dysuria Musculoskeletal: No Back Pain, No Neck Pain Skin: No Rash Neurological: No Dizziness, No Focal Weakness, No Sensory Changes Psychological: No Symptoms Endocrine: No Symptoms Hematologic/Lymphatic: No Symptoms Immunological/Allergic: No Symptoms Objective Exam General Appearance: no apparent distress, alert Neurologic Exam: alert, oriented x 3, cooperative, normal mood/affect, nml cerebellar function, sensation nml, No motor deficits Skin Exam: normal color, warm, dry Eye Exam: PERRL, EOMI, eyes nml inspection Ears, Nose, Throat Exam: normal ENT inspection, pharynx normal, moist mucous membranes Neck Exam: normal inspection, non-tender, supple, full range of motion Respiratory Exam: normal breath sounds, lungs clear, No respiratory distress Cardiovascular Exam: regular rate/rhythm, normal heart sounds Gastrointestinal/Abdomen Exam: soft, No tenderness, No mass Extremity Exam: normal inspection, normal range of motion Back Exam: normal inspection, normal range of motion, No CVA tenderness, No vertebral tenderness Pelvic Exam: deferred Rectal Exam: deferred OBJECTIVE DATA Vital Signs: Vital Signs - 24 hr Temp Pulse Resp BP Pulse Ox 01/11/20 11:48 98.6 F 85 18 141/67 93 L 01/11/20 07:38 98.1 F 73 18 145/84 96 01/11/20 04:00 98.4 F 102 H 18 139/73 94 L 01/11/20 00:00 98.7 F 98 H 18 148/78 93 L 01/10/20 20:00 98.7 F 107 H 20 167/79 93 L 01/10/20 16:00 98.3 F 86 18 153/78 98 01/10/20 15:15 98.3 F 86 18 153/78 98 01/10/20 14:25 98.3 F 86 18 153/78 98 01/10/20 14:16 98.3 F 86 18 153/78 98 Pain Assessment - Last Documented Pain Intensity 0 Pain Scale Used 0-10 Pain Scale Intake and Output: Intake & Output 01/09/20 01/10/20 01/11/20 01/12/20 11:59 11:59 11:59 11:59 Intake Total 2984 Output Total 900 Balance 2084 Weight 74.5 kg Lab Results: Lab Results-Last 24 Hours 01/10/20 01/10/20 01/10/20 Range/Units 14:24 14:45 Unknown WBC 9.0 (4.0-10.5) K/mm3 RBC 4.99 (4.1-5.4) M/mm3 Hgb 14.5 (12.0-16.0) gm/dl Hct 45.6 (35-47) % MCV 91.4 (78-100) fl MCH 29.1 (26-32) pg MCHC 31.8 L (32-36) g/dl RDW 15.4 H (11.5-14.0) % Plt Count 192 (150-450) K/mm3 MPV 10.8 (7.5-11.0) fl Gran % 85.1 H (36.0-66.0) % Eos # (Auto) 0.01 (0-0.5) Absolute Lymphs (auto) 0.78 L (1.0-4.6) Absolute Monos (auto) 0.53 (0.0-1.3) Lymphocytes % 8.7 L (24.0-44.0) % Monocytes % 5.9 (0.0-12.0) % Eosinophils % 0.1 (0.00-5.0) % Basophils % 0.2 (0.0-0.4) % Absolute Granulocytes 7.64 H (1.4-6.9) Basophils # 0.02 (0-0.4) Sodium 142 (137-145) mmol/L Potassium 3.7 (3.5-5.1) mmol/L Chloride 104 (98-107) mmol/L Carbon Dioxide 26 (22-30) mmol/L Anion Gap 15.7 H (5-15) MEQ/L BUN 18 H (7-17) mg/dL Creatinine 0.77 (0.52-1.04) mg/dL Estimated GFR > 60.0 ML/MIN Glucose 135 H (74-106) mg/dL Calcium 9.9 (8.4-10.2) mg/dL Total Bilirubin 0.80 (0.2-1.3) mg/dL AST 23 (14-36) U/L ALT 14 (0-35) U/L Alkaline Phosphatase 100 (38-126) U/L Serum Total Protein 8.2 (6.3-8.2) g/dL Albumin 4.6 (3.5-5.0) g/dL Influenza Type A Ag NEGATIVE (NEGATIVE) Influenza Type B Ag NEGATIVE (NEGATIVE) RSV (PCR) NEGATIVE (Negative) Radiology Exams: Radiology Procedures Category Date Time Status ABDOMEN AND PELVIS W/0 CONTRAS [CT] Urgent Exams 01/10/20 17:55 Completed Assessment/Plan (1) Gastroenteritis and colitis, toxic Current Visit: Yes Status: Acute Assessment & Plan: Chief Complaint Diagnosis dehydration. Allergies Allergy/AdvReac Type Severity Reaction Status Date / Time No Known Drug Allergies Allergy Verified 01/24/19 15:13 Vital Signs (Last 24 hours) Temp Pulse Resp BP Pulse Ox 01/11/20 11:48 98.6 F 85 18 141/67 93 L 01/11/20 07:38 98.1 F 73 18 145/84 96 01/11/20 04:00 98.4 F 102 H 18 139/73 94 L 01/11/20 00:00 98.7 F 98 H 18 148/78 93 L 01/10/20 20:00 98.7 F 107 H 20 167/79 93 L 01/10/20 16:00 98.3 F 86 18 153/78 98 01/10/20 15:15 98.3 F 86 18 153/78 98 01/10/20 14:25 98.3 F 86 18 153/78 98 01/10/20 14:16 98.3 F 86 18 153/78 98 Home Medications Medication Instructions Recorded Confirmed Last Taken Type Meloxicam 7.5 mg [Mobic 7.5 1 tab PO DAILY 01/10/20 01/10/20 1 Day Ago History MG] ~01/09/20 7.5 mg Sacubitril/Valsartan [Entresto 49 1 tab PO BID 01/10/20 01/10/20 1 Day Ago History mg-51 mg Tablet] ~01/09/20 1 tab Current Medications Generic Name Dose Route Start Last Admin Trade Name Freq PRN Reason Stop Dose Admin Amlodipine Besylate 2.5 mg 01/11/20 10:00 01/11/20 09:07 Norvasc 5 Mg PO 02/10/20 09:59 2.5 mg DAILY PATRICIA Administration Apixaban 2.5 mg 01/10/20 22:00 01/11/20 09:06 Eliquis 2.5 Mg Tablet PO 02/09/20 21:59 2.5 mg BID PATRICIA Administration Aspirin 81 mg 01/11/20 10:00 01/11/20 09:06 Ecotrin 81 Mg PO 02/10/20 09:59 81 mg DAILY PATRICIA Administration Calcium Carbonate 1 tab 01/11/20 10:00 01/11/20 09:06 Calcium 500mg W/Vit D Tablet PO 02/10/20 09:59 1 tab DAILY PATRICIA Administration Furosemide 20 mg 01/11/20 10:00 01/11/20 09:07 Lasix 20 Mg PO 02/10/20 09:59 20 mg DAILY PATRICIA Administration Sodium Chloride 1,000 mls @ 100 mls/hr 01/10/20 14:30 01/11/20 04:57 Sodium Chloride 0.9% 1000 Ml IV 02/09/20 14:29 100 mls/hr .Q10H PATRICIA Administration Levothyroxine Sodium 100 mcg 01/11/20 10:00 01/11/20 09:08 Synthroid 100 Mcg PO 02/10/20 09:59 100 mcg DAILY PATRICIA Administration Meloxicam 7.5 mg 01/11/20 10:00 01/11/20 09:07 Mobic 7.5 Mg PO 02/10/20 09:59 7.5 mg DAILY PATRICIA Administration Metoprolol Tartrate 100 mg 01/10/20 22:00 01/11/20 09:07 Lopressor 50 Mg PO 02/09/20 21:59 100 mg BID PATRICIA Administration Ondansetron HCl 4 mg 01/10/20 14:24 01/10/20 14:56 Zofran 4 Mg/2 Ml Vial IV 02/09/20 14:23 4 mg Q6H PRN PRN Administration NAUSEA/VOMITING Potassium Chloride 10 meq 01/11/20 10:00 01/11/20 09:06 Klor Con 10 Meq PO 02/10/20 09:59 10 meq DAILY PATRICIA Administration Promethazine HCl 25 mg 01/10/20 17:56 01/10/20 18:16 Phenergan 25 Mg Inj IV 02/09/20 17:55 25 mg Q4H PRN PRN Administration NAUSEA/VOMITING Sacubitril/Valsartan 1 tablet 01/10/20 22:00 01/11/20 09:06 Entresto 49 Mg-51 Mg Tablet PO 02/09/20 21:59 1 tablet BID PATRICIA Administration Simvastatin 40 mg 01/10/20 22:00 01/10/20 20:44 Zocor 20mg PO 02/09/20 21:59 40 mg HS PATRICIA Administration Discontinued Medications Generic Name Dose Route Start Last Admin Trade Name Freq PRN Reason Stop Dose Admin Apixaban Confirm 01/10/20 19:59 Eliquis 2.5 Mg Tablet Administered 01/10/20 20:00 Dose 2.5 mg .ROUTE .STK-MED ONE Sodium Chloride 1,000 mls @ 999 mls/hr 01/10/20 14:24 01/10/20 14:56 Sodium Chloride 0.9% 1000 Ml IV 01/10/20 15:24 999 mls/hr .Q1H1M STA Administration Metoprolol Tartrate Confirm 01/10/20 20:00 Lopressor 50 Mg Administered 01/10/20 20:01 Dose 100 mg .ROUTE .STK-MED ONE Sacubitril/Valsartan Confirm 01/10/20 19:59 Entresto 49 Mg-51 Mg Tablet Administered 01/10/20 20:00 Dose 1 tablet .ROUTE .STK-MED ONE Simvastatin Confirm 01/10/20 20:00 Zocor 20mg Administered 01/10/20 20:01 Dose 40 mg .ROUTE .STK-MED ONE Intake & Output (Last 24 hours) 01/09/20 01/10/20 01/11/20 01/12/20 11:59 11:59 11:59 11:59 Intake Total 2984 Output Total 900 Balance 2084 Weight 74.5 kg Laboratory Results (Last 24 hours) 01/10/20 01/10/20 01/10/20 Unknown 14:45 14:24 WBC 9.0 RBC 4.99 Hgb 14.5 Hct 45.6 MCV 91.4 MCH 29.1 MCHC 31.8 L RDW 15.4 H Plt Count 192 MPV 10.8 Gran % 85.1 H Eos # (Auto) 0.01 Absolute Lymphs (auto) 0.78 L Absolute Monos (auto) 0.53 Lymphocytes % 8.7 L Monocytes % 5.9 Eosinophils % 0.1 Basophils % 0.2 Absolute Granulocytes 7.64 H Basophils # 0.02 Sodium 142 Potassium 3.7 Chloride 104 Carbon Dioxide 26 Anion Gap 15.7 H BUN 18 H Creatinine 0.77 Estimated GFR > 60.0 Glucose 135 H Calcium 9.9 Total Bilirubin 0.80 AST 23 ALT 14 Alkaline Phosphatase 100 Serum Total Protein 8.2 Albumin 4.6 Influenza Type A Ag NEGATIVE Influenza Type B Ag NEGATIVE RSV (PCR) NEGATIVE Orders (Last 24 hours) Category Date Time Status Up Ad Bib[place] TOLERATED Activity 01/10/20 14:25 Active Isolation, Initiate & Maintain Q4H Care 01/10/20 14:[address] in Observation ROUTINE Care 01/10/20 14:15 Active Clear Liquid Diet 01/10/20 Dinner Active Nutritional Admission Screen once Diet 01/10/20 15:31 Active ABDOMEN AND PELVIS W/0 CONTRAS [CT] Urgent Exams 01/10/20 17:55 Completed CBC W DIFF Stat Lab 01/10/20 14:24 Completed CMP Stat Lab 01/10/20 14:45 Completed Amlodipine Besylate 5 mg [Norvasc 5 mg] Med 01/11/20 10:00 Active 2.5 mg PO DAILY Apixaban [Eliquis 2.5 mg Tablet] Med 01/10/20 19:59 Discontinued 2.5 mg .ROUTE .STK-MED ONE Apixaban [Eliquis 2.5 mg Tablet] Med 01/10/20 22:00 Active 2.5 mg PO BID Aspirin EC 81 mg [Ecotrin 81 mg] Med 01/11/20 10:00 Active 81 mg PO DAILY Calcium Carb/Vitamin D 500 mg* [Calcium 500MG W/Vit D Med 01/11/20 10:00 Active Tablet] 1 tab PO DAILY Furosemide 20 mg [Lasix 20 mg] Med 01/11/20 10:00 Active 20 mg PO DAILY Levothyroxine Sodium 100 Mcg [Synthroid 100 Mcg] Med 01/11/20 10:00 Active 100 mcg PO DAILY Meloxicam 7.5 mg [Mobic 7.5 MG] Med 01/11/20 10:00 Active 7.5 mg PO DAILY Metoprolol Tartrate 50 mg [Lopressor 50 MG] Med 01/10/20 20:00 Discontinued 100 mg .ROUTE .STK-MED ONE Metoprolol Tartrate 50 mg [Lopressor 50 MG] Med 01/10/20 22:00 Active 100 mg PO BID NaCl 0.9% 1000 ml [Sodium Chloride 0.9% 1000 ML] 1,000 Med 01/10/20 14:30 Active ml IV 100 mls/hr NaCl 0.9% 1000 ml [Sodium Chloride 0.9% 1000 ML] 1,000 Med 01/10/20 14:24 Discontinued ml IV 999 mls/hr Ondansetron HCl 4 mg/2 ml [Zofran 4 MG/2 ML VIAL] Med 01/10/20 14:24 Active 4 mg IV Q6H PRN PRN Potassium Chloride 10 Meq Tab* [Klor Con 10 MEQ] Med 01/11/20 10:00 Active 10 meq PO DAILY Promethazine HCl 25 mg Amp [Phenergan 25 MG INJ] Med 01/10/20 17:56 Active 25 mg IV Q4H PRN PRN Sacubitril/Valsartan [Entresto 49 mg-51 mg Tablet] Med 01/10/20 19:59 Discontinued 1 tablet .ROUTE .STK-MED ONE Sacubitril/Valsartan [Entresto 49 mg-51 mg Tablet] Med 01/10/20 22:00 Active 1 tablet PO BID Simvastatin 20Mg [Zocor 20Mg] Med 01/10/20 20:00 Discontinued 40 mg .ROUTE .STK-MED ONE Simvastatin 20Mg [Zocor 20Mg] Med 01/10/20 22:00 Active 40 mg PO HS Patient Care Notes (Last 24 hours) 01/10/20 19:00 (created 01/10/20 19:32) Nursing Note by Alsman,Chary No further c/o N/V at this time. Resting. Initialized on 01/10/20 19:32 - END OF NOTE 01/10/20 17:56 Nursing Note by Chary Gonzalez Called and reported to Dr Pugh of pt now vomiting dark brown emesis;new orders received. Addendum entered by Chary Gonzalez 01/10/20 18:45: Emesis bag 3/4ths full of Brown liquid appearance of stool. Initialized on 01/10/20 17:56 - END OF NOTE 01/10/20 16:00 Nursing Note by Suyapa Alfaro STATED TO NURSE THAT IF INFLUENZA COMES BACK NEGATIVE THEN SHE CAN BE REMOVED FROM ISOLATION. Initialized on 01/10/20 16:00 - END OF NOTE 01/10/20 15:35 (created 01/10/20 17:20) Nursing Note by Chary Gonzalez N o further c/i nausea at this time. able to tolerate sips of H2O. Initialized on 01/10/20 17:20 - END OF NOTE 01/10/20 14:20 Nursing Note by Suyapa Alfaro i CALLED 'S OFFICE TO LET HIM KNOW PATIENT IS HERE IN 106. Initialized on 01/10/20 14:20 - END OF NOTE Code(s): K52.1 - TOXIC GASTROENTERITIS AND COLITIS
[2020-01-11] MEDS ORDERED: PROTONIX 40 MG IV IV SCH (13:00)
[2020-01-11] MEDS: Cipro 500 MG PO SCH ×2 (14:20→21:08)
[2020-01-11] MEDS: ZOCOR 20MG PO SCH (21:08)
[2020-01-12] MEDS: Sodium Chloride 0.9% 1000 ML 1,000 ML IV SCH (01:24)
[2020-01-12 07:42] VITALS: BP 122/62; PULSE 84; O2SAT 97
[2020-01-12] MEDS: Klor Con 10 MEQ PO SCH (09:18)
[2020-01-12] MEDS: SYNTHROID 100 MCG PO SCH (09:18)
[2020-01-12] MEDS: Lopressor 50 MG PO SCH (09:18)
[2020-01-12] MEDS: ELIQUIS 2.5 MG TABLET PO SCH (09:18)
[2020-01-12] MEDS: ENTRESTO 49 MG-51 MG TABLET PO SCH (09:18)
[2020-01-12] MEDS: Mobic 7.5 MG PO SCH (09:18)
[2020-01-12] MEDS: Calcium 500MG W/Vit D Tablet PO SCH (09:18)
[2020-01-12] MEDS: LASIX 20 MG PO SCH (09:18)
[2020-01-12] MEDS: ECOTRIN 81 MG PO SCH (09:18)
[2020-01-12] MEDS: NORVASC 5 MG PO SCH (09:19)
[2020-01-12] MEDS: Cipro 500 MG PO SCH (09:25)
== END 2020-01-12 11:27 | disposition home or self-care (01) ==
LOC: MED SURG 14:15
PROVIDERS: ADMIT General Practice; ATTEND General Practice
DX: K52.1 Toxic gastroenteritis and colitis (principal); R10.9 Unspecified abdominal pain; I10 Essential (primary) hypertension; E78.5 Hyperlipidemia, unspecified; E03.9 Hypothyroidism, unspecified; Z79.01 Long term (current) use of anticoagulants; Z79.899 Other long term (current) drug therapy
CPT/HCPCS: 36415; 74176; 80053; 85025; 87631; G0378; J2405; J2550; A9270-GY

== ENCOUNTER 2020-01-27 11:23 | Observation (INO) | payer MEDICARE ==
[2020-01-27 13:43] LABS: Hematocrit 33.3 % (35-47); Hemoglobin 10.7 gm/dl (12.0-16.0); Mean Cell Volume 92.5 fl (78-100); Mean Corpuscular Hemoglobin 29.7 pg (26-32); Mean Corpuscular Hgb Concent. 32.1 g/dl (32-36); Mean Platelet Volume 10.5 fl (7.5-11.0); Platelet Count 272 K/mm3 (150-450); Red Cell Distribution Width 14.8 % (11.5-14.0); White Blood Count 6.9 K/mm3 (4.0-10.5)
[2020-01-27 14:14] LABS: INR 1.61 (0.8-3.0); PROTIME 18.4 SECONDS (9.95-12.35)
[2020-01-27] MEDS ORDERED: Lactated Ringers 1,000 ML IV ONE (15:04)
[2020-01-27 15:24] LABS: ABO TYPING O; Antibody Screen NEGATIVE (NEGATIVE); RH TYPING POSITIVE
[2020-01-27] MEDS ORDERED: TYLENOL 325 MG PO PRN (15:24)
[2020-01-27 15:25] LABS: CROSS MATCH (PRBC) COMPATIBLE (COMPATIBLE)
[2020-01-27] MEDS ORDERED: Ketamine HCl 50 MG/ML ONE (15:37)
[2020-01-27] MEDS ORDERED: DIPRIVAN 200 MG/20 ML IV ONE (15:37)
[2020-01-27] MEDS: Protonix 40MG Tablet PO SCH (18:32)
[2020-01-27] MEDS: Carafate 1 GM PO SCH ×2 (18:32→21:27)
[2020-01-27] MEDS: ENTRESTO 49 MG-51 MG TABLET PO SCH (21:26)
[2020-01-27] MEDS: Lopressor 50 MG PO SCH (21:26)
[2020-01-27] MEDS: Sodium Chloride 0.9% 1000 ML 1,000 ML IV SCH (21:26)
[2020-01-27] MEDS: Vitamin C 500 MG PO SCH (21:28)
[2020-01-27] MEDS: Calcium 500MG W/Vit D Tablet PO SCH (21:28)
[2020-01-27] MEDS ORDERED: NON-FORMULARY ITEM (Calcium Carbonate [Calcium] 500 MG) PO SCH (22:00)
[2020-01-28] MEDS: Sodium Chloride 0.9% 1000 ML 1,000 ML IV SCH (05:56)
[2020-01-28] MEDS ORDERED: SYNTHROID 100 MCG PO SCH (06:00)
[2020-01-28 08:14] VITALS: O2SAT 99
--- NOTE | 2020-01-28 08:35 | OP ---
SURGERY DATE/TIME: 01/27/2020 1538 PREOPERATIVE DIAGNOSIS: GI bleed, hemoglobin 10. POSTOPERATIVE DIAGNOSES: 1) The patient has an anterior duodenal ulcer with acute activity and a thrombus. 2) There is also a little narrowing of the pylorus. PROCEDURE: EGD. SURGEON: Malik Hernandez M.D. ANESTHESIA: MAC. COMPLICATIONS: None. CONDITION: Stable. INDICATION: The patient presents acutely with bleeding. She had been in the hospital a few weeks earlier. She had a colonoscopy about four years ago. DESCRIPTION OF PROCEDURE: She is taken to endoscopy. Left lateral decubitus position. Pharyngoesophageal junction normal. Esophagus normal. There was esophagitis grade 2. Fundus, body normal but there were some black flecks in the antrum. The pylorus was narrowed although the scope could be advanced into the pylorus and then the ulcer was anterior to the left and it had a 1 cm thrombus in it. It was a good sized ulcer about 1 x 1 cm. The channel was to the right and a little posterior. The scope could be started in the channel although there is enough swelling from the ulcerated areas that bulged back into the duodenum but this area certainly was narrow. Scope withdrawn. At this time I do not think it would be a good idea to dilate this. I think this is acute bleeding. PLAN: Full liquids with milk shakes and supplements. She could be advanced to a regular diet in about a week. She will need Protonix and Carafate as she has a very active ulcer.
[2020-01-28 08:47] LABS: Hematocrit 30.2 % (35-47); Hemoglobin 9.4 gm/dl (12.0-16.0); Mean Cell Volume 93.8 fl (78-100); Mean Corpuscular Hemoglobin 29.2 pg (26-32); Mean Corpuscular Hgb Concent. 31.1 g/dl (32-36); Mean Platelet Volume 10.2 fl (7.5-11.0); Platelet Count 248 K/mm3 (150-450); Red Blood Count 3.22 M/mm3 (4.1-5.4); Red Cell Distribution Width 14.8 % (11.5-14.0); White Blood Count 5.5 K/mm3 (4.0-10.5)
[2020-01-28] MEDS ORDERED: LASIX 20 MG PO SCH (10:00)
[2020-01-28] MEDS ORDERED: Zocor 10MG PO SCH (10:00)
[2020-01-28] MEDS ORDERED: NON-FORMULARY ITEM (Multivitamin [Multivitamins] 1 EACH) PO SCH (10:00)
[2020-01-28] MEDS ORDERED: Lanoxin 0.125MG TABLET PO SCH (10:00)
[2020-01-28] MEDS ORDERED: THERAGRAN MULTIVITAMIN PO SCH (10:00)
[2020-01-28] MEDS ORDERED: Klor Con 10 MEQ PO SCH (10:00)
[2020-01-28] MEDS ORDERED: NORVASC 5 MG PO SCH (10:00)
[2020-01-28] MEDS: Vitamin C 500 MG PO SCH (10:11)
[2020-01-28] MEDS: Carafate 1 GM PO SCH ×2 (10:11→12:20)
[2020-01-28] MEDS: Lopressor 50 MG PO SCH (10:11)
[2020-01-28] MEDS: Protonix 40MG Tablet PO SCH (10:12)
[2020-01-28] MEDS: ENTRESTO 49 MG-51 MG TABLET PO SCH (10:12)
[2020-01-28] MEDS: Calcium 500MG W/Vit D Tablet PO SCH (10:12)
--- NOTE | 2020-01-28 11:44 | PCM.SSS ---
History of Present Illness - Chief Complaint Chief Complaint: bloody stool for 1 day History of Present Illness: is a 84 year old female. with Hx of Atrial fibrillation, CAD, started having bloody stool for 1 day. No nausea, vomiting - Review of Systems Constitutional: No Fever, No Chills Eyes: No Symptoms Ears, Nose, & Throat: No Symptoms Respiratory: No Cough, No Short Of Breath Cardiac: No Chest Pain, No Edema, No Syncope Abdominal/Gastrointestinal: Hematochezia, Melena, No Abdominal Pain, No Nausea, No Vomiting, No Diarrhea Genitourinary Symptoms: No Dysuria Musculoskeletal: No Back Pain, No Neck Pain Skin: No Rash Neurological: No Dizziness, No Focal Weakness, No Sensory Changes Psychological: No Symptoms Endocrine: No Symptoms Hematologic/Lymphatic: No Symptoms Immunological/Allergic: No Symptoms Medications & Allergies Home Medications: Home Medication List Apixaban [Eliquis] 2.5 mg PO BID 10/24/18 [History Confirmed 01/27/20] Aspirin EC 81 mg [Ecotrin 81 mg] 81 mg PO DAILY 10/24/18 [History Confirmed 01/27/20] Levothyroxine Sodium 100 Mcg [Synthroid 100 Mcg] 100 mcg PO DAILY 10/24/18 [History Confirmed 01/27/20] Potassium Chloride 10 Meq Tab* [Klor Con 10 MEQ] 8 meq PO DAILY 10/24/18 [ History Confirmed 01/27/20] Simvastatin 10 mg PO DAILY 10/24/18 [History Confirmed 01/27/20] Amlodipine Besylate 2.5 mg PO DAILY 01/24/19 [History Confirmed 01/27/20] Furosemide 20 mg [Lasix 20 mg] 20 mg PO DAILY 30 Days #30 tablet 01/28/19 [Rx Confirmed 01/27/20] Metoprolol Tartrate 50 mg [Lopressor 50 MG] 100 mg PO BID 30 Days #120 tablet 01/28/19 [Rx Confirmed 01/27/20] Sacubitril/Valsartan [Entresto 49 mg-51 mg Tablet] 1 tab PO BID 01/10/20 [ History Confirmed 01/27/20] Acetaminophen 325 mg [Tylenol 325 mg] 650 mg PO Q6H PRN 01/27/20 [History Confirmed 01/27/20] Ascorbic Acid 500 mg [Vitamin C 500 MG] 500 mg PO BID 01/27/20 [History Confirmed 01/27/20] Calcium Carbonate [Calcium] 500 mg PO BID 01/27/20 [History Confirmed 01/27/20] Digoxin 62.5 mcg PO DAILY 01/27/20 [History Confirmed 01/27/20] Ergocalciferol (Vitamin D2) [Vitamin D] 50,000 units PO BID 01/27/20 [History Confirmed 01/27/20] Multivitamin [Multivitamins] 1 each PO DAILY 01/27/20 [History Confirmed ] Allergies/Adverse Reactions: Allergies Allergy/AdvReac Type Severity Reaction Status Date / Time No Known Drug Allergies Allergy Verified 01/24/19 15:13 - Past Medical History Past Medical History: Yes Neurological History: No Pertinent History ENT History: No Pertinent History Cardiac History: Arrhythmia, Congestive Heart Failure, Coronary Artery Disease, Hypertension, Myocardial Infarction (CT) Respiratory History: CHF Endocrine Medical History: Hypothyroidism Musculoskelatal History: No Pertinent History GI Medical History: GERD History: Renal Disease Pyscho-Social History: No Pertinent History Reproductive Disorders: No Pertinent History Comment: cardiac stents 2006 - Female History Are you now?: No - Past Surgical History Past Surgical History: Yes Neuro Surgical History: No Pertinent History Cardiac History: Cardiac Stent Respiratory Surgery: No Pertinent History GI Surgical History: No Pertinent History Genitourinary Surgical Hx: No Pertinent History Musculskeletal Surgical Hx: No Pertinent History Female Surgical History: Hysterectomy - Social History Smoking Status: Never smoker Exposure to second hand smoke: No Alcohol: None Drug Use: none - Physical Exam Vital Signs: Vital Signs - 24 hr Temp Pulse Resp BP BP Pulse Ox 01/28/20 10:13 96 H 120/63 01/28/20 08:00 98.3 F 96 H 20 120/63 99 01/28/20 04:00 98.1 F 77 17 110/78 98 01/27/20 23:34 97.9 F 77 18 123/74 97 01/27/20 20:00 97.9 F 86 17 119/81 93 L 01/27/20 16:21 82 135/99 01/27/20 15:03 96.6 F 96 H 18 153/68 94 L 01/27/20 13:16 96.6 F 96 H 18 153/68 94 L General Appearance: no apparent distress, alert Neurologic Exam: alert, oriented x 3, cooperative, normal mood/affect, nml cerebellar function, nml station & gait, sensation nml, No motor deficits Eye Exam: PERRL/EOMI, eyes nml inspection Ears, Nose, Throat Exam: normal ENT inspection, TMs normal, pharynx normal, moist mucous membranes Neck Exam: normal inspection, non-tender, supple, full range of motion Respiratory Exam: normal breath sounds, lungs clear, No respiratory distress Cardiovascular Exam: regular rate/rhythm, normal heart sounds, normal peripheral pulses Gastrointestinal/Abdomen Exam: soft, normal bowel sounds, No tenderness, No mass Back Exam: normal inspection, normal range of motion, No CVA tenderness, No vertebral tenderness Extremity Exam: normal inspection, normal range of motion, pelvis stable Skin Exam: normal color, warm, dry, No rash Lymphatic Exam: No adenopathy Results - Labs Lab/Micro Results: Lab Results-Last 24 Hours 01/27/20 01/27/20 01/27/20 Range/Units 13:30 13:30 13:45 WBC 6.9 (4.0-10.5) K/mm3 RBC 3.60 L (4.1-5.4) M/mm3 Hgb 10.7 L (12.0-16.0) gm/dl Hct 33.3 L (35-47) % MCV 92.5 (78-100) fl MCH 29.7 (26-32) pg MCHC 32.1 (32-36) g/dl RDW 14.8 H (11.5-14.0) % Plt Count 272 (150-450) K/mm3 MPV 10.5 (7.5-11.0) fl PT 18.4 H (9.95-12.35) SECONDS INR 1.61 (0.8-3.0) ABO Group O Rh Factor POSITIVE Antibody Screen NEGATIVE (NEGATIVE) Crossmatch COMPATIBLE (COMPATIBLE) 01/27/20 01/28/20 Range/Units 13:45 08:37 WBC 5.5 (4.0-10.5) K/mm3 RBC 3.22 L (4.1-5.4) M/mm3 Hgb 9.4 L (12.0-16.0) gm/dl Hct 30.2 L (35-47) % MCV 93.8 (78-100) fl MCH 29.2 (26-32) pg MCHC 31.1 L (32-36) g/dl RDW 14.8 H (11.5-14.0) % Plt Count 248 (150-450) K/mm3 MPV 10.2 (7.5-11.0) fl PT (9.95-12.35) SECONDS INR (0.8-3.0) ABO Group Rh Factor Antibody Screen (NEGATIVE) Crossmatch COMPATIBLE (COMPATIBLE) - Other Procedures and Tests colonoscopy and EGD done Assessment/Plan (1) Melena Current Visit: Yes Status: Acute Assessment & Plan: s/p EGD. Colonoscopy. EGD showed duodenal ulcer with recent bleeding although no active bleeding Code(s): K92.1 - [facility] Hospital Summary - Hospital Course Hospital Course: Chief Complaint Diagnosis GI Bleed Allergies Allergy/AdvReac Type Severity Reaction Status Date / Time No Known Drug Allergies Allergy Verified 01/24/19 15:13 Vital Signs (Last 24 hours) Temp Pulse Resp BP BP Pulse Ox 01/28/20 10:13 96 H 120/63 01/28/20 08:00 98.3 F 96 H 20 120/63 99 01/28/20 04:00 98.1 F 77 17 110/78 98 01/27/20 23:34 97.9 F 77 18 123/74 97 01/27/20 20:00 97.9 F 86 17 119/81 93 L 01/27/20 16:21 82 135/99 01/27/20 15:03 96.6 F 96 H 18 153/68 94 L 01/27/20 13:16 96.6 F 96 H 18 153/68 94 L Home Medications Medication Instructions Recorded Confirmed Last Taken Type Acetaminophen 325 mg [Tylenol 650 mg PO Q6H PRN 01/27/20 01/27/20 01/27/20 History 325 mg] Ascorbic Acid 500 mg [Vitamin C 500 mg PO BID 01/27/20 01/27/20 01/27/20 History 500 MG] Calcium Carbonate [Calcium] 500 mg PO BID 01/27/20 01/27/20 01/27/20 History Digoxin 62.5 mcg PO DAILY 01/27/20 01/27/20 01/27/20 History Ergocalciferol (Vitamin D2) 50,000 units PO BID 01/27/20 01/27/20 01/27/20 History [Vitamin D] Multivitamin [Multivitamins] 1 each PO DAILY 01/27/20 01/27/20 01/27/20 History Current Medications Generic Name Dose Route Start Last Admin Trade Name Freq PRN Reason Stop Dose Admin Acetaminophen 650 mg 01/27/20 15:24 Tylenol 325 Mg PO 02/26/20 15:23 Q6H PRN PRN temp/PINO Amlodipine Besylate 2.5 mg 01/28/20 10:00 01/28/20 10:11 Norvasc 5 Mg PO 02/27/20 09:59 2.5 mg DAILY PATRICIA Administration Ascorbic Acid 500 mg 01/27/20 22:00 01/28/20 10:11 Vitamin C 500 Mg PO 02/26/20 21:59 500 mg BID PATRICIA Administration Calcium Carbonate 1 tab 01/27/20 22:00 01/28/20 10:12 Calcium 500mg W/Vit D Tablet PO 02/26/20 21:59 1 tab BID PATRICIA Administration Digoxin 0.0625 mg 01/29/20 10:00 Lanoxin 0.125mg Tablet PO 02/28/20 09:59 DAILY PATRICIA Ergocalciferol 50,000 unit 02/03/20 10:00 Vitamin D2 PO 03/04/20 09:59 Q7D PATRICIA Furosemide 20 mg 01/28/20 10:00 01/28/20 10:12 Lasix 20 Mg PO 02/27/20 09:59 20 mg DAILY PATRICIA Administration Sodium Chloride 1,000 mls @ 100 mls/hr 01/27/20 21:15 01/28/20 05:56 Sodium Chloride 0.9% 1000 Ml IV 02/26/20 21:14 100 mls/hr .Q10H PATRICIA Administration Levothyroxine Sodium 100 mcg 01/28/20 06:00 01/28/20 05:56 Synthroid 100 Mcg PO 02/27/20 05:59 100 mcg DAILY@0600 PATRICIA Administration Metoprolol Tartrate 100 mg 01/27/20 22:00 01/28/20 10:11 Lopressor 50 Mg PO 02/26/20 21:59 100 mg BID PATRICIA Administration Multivitamins Therapeutic 1 tab 01/28/20 10:00 01/28/20 10:12 Theragran Multivitamin PO 02/27/20 09:59 1 tab DAILY PATRICIA Administration Pantoprazole Sodium 40 mg 01/27/20 17:00 01/28/20 10:12 Protonix 40mg Tablet PO 02/26/20 16:59 40 mg DAILY PATRICIA Administration Potassium Chloride 10 meq 01/28/20 10:00 01/28/20 10:10 Klor Con 10 Meq PO 02/27/20 09:59 10 meq DAILY PATRICIA Administration Sacubitril/Valsartan 1 tablet 01/27/20 22:00 01/28/20 10:12 Entresto 49 Mg-51 Mg Tablet PO 02/26/20 21:59 1 tablet BID PATRICIA Administration Simvastatin 10 mg 01/28/20 10:00 01/28/20 10:12 Zocor 10mg PO 02/27/20 09:59 10 mg DAILY PATRICIA Administration Sucralfate 1 g 01/27/20 16:30 01/28/20 10:11 Carafate 1 Gm PO 02/26/20 16:29 1 g ACHS PATRICIA Administration Discontinued Medications Generic Name Dose Route Start Last Admin Trade Name Freq PRN Reason Stop Dose Admin Digoxin 0.125 mg 01/28/20 10:00 01/28/20 10:13 Lanoxin 0.125mg Tablet PO 01/28/20 10:01 0.125 mg DAILY PATRICIA Administration Lactated Ringer's Confirm 01/27/20 15:04 Lactated Ringers Administered 01/27/20 15:05 Dose 1,000 mls @ ud IV .STK-MED ONE Ketamine HCl Confirm 01/27/20 15:37 Ketamine Hcl 50 Mg/Ml Administered 01/27/20 15:38 Dose 10 mg .ROUTE .STK-MED ONE Propofol Confirm 01/27/20 15:37 Diprivan 200 Mg/20 Ml Administered 01/27/20 15:38 Dose 200 mg IV .STK-MED ONE Intake & Output (Last 24 hours) 01/25/20 01/26/20 01/27/20 01/28/20 11:59 11:59 11:59 11:59 Intake Total 2165 Output Total 1100 Balance 1065 Weight 72 kg Laboratory Results (Last 24 hours) 01/28/20 01/27/20 01/27/20 08:37 13:45 13:45 WBC 5.5 RBC 3.22 L Hgb 9.4 L Hct 30.2 L MCV 93.8 MCH 29.2 MCHC 31.1 L RDW 14.8 H Plt Count 248 MPV 10.2 PT INR ABO Group O Rh Factor POSITIVE Antibody Screen NEGATIVE Crossmatch COMPATIBLE COMPATIBLE 01/27/20 01/27/20 13:30 13:30 WBC 6.9 RBC 3.60 L Hgb 10.7 L Hct 33.3 L MCV 92.5 MCH 29.7 MCHC 32.1 RDW 14.8 H Plt Count 272 MPV 10.5 PT 18.4 H INR 1.61 ABO Group Rh Factor Antibody Screen Crossmatch Orders (Last 24 hours) Category Date Time Status Place in Observation ROUTINE Care 01/27/20 13:00 Active Consult Surgery ROUTINE Cons 01/27/20 13:35 Completed Ensure Diet 01/27/20 Dinner Active Full Liquid Diet Diet 01/27/20 Dinner Active NPO Diet 01/27/20 13:27 Completed BLOOD COMPONENT REQUEST Urgent Lab 01/27/20 13:45 Completed CBC Routine Lab 01/28/20 08:37 Completed CBC Stat Lab 01/27/20 13:30 Completed PROTIME WITH INR Stat Lab 01/27/20 13:30 Completed TYPE AND SCREEN Urgent Lab 01/27/20 13:45 Completed Acetaminophen 325 mg [Tylenol 325 mg] Med 01/27/20 15:24 Active 650 mg PO Q6H PRN PRN Amlodipine Besylate 5 mg [Norvasc 5 mg] Med 01/28/20 10:00 Active 2.5 mg PO DAILY Ascorbic Acid 500 mg [Vitamin C 500 MG] Med 01/27/20 22:00 Active 500 mg PO BID Calcium Carb/Vitamin D 500 mg* [Calcium 500MG W/Vit D Med 01/27/20 22:00 Active Tablet] 1 tab PO BID Digoxin 0.125 mg Tablet [Lanoxin 0.125MG TABLET] Med 01/29/20 10:00 Active 0.0625 mg PO DAILY Digoxin 0.125 mg Tablet [Lanoxin 0.125MG TABLET] Med 01/28/20 10:00 Discontinued 0.125 mg PO DAILY Ergocalciferol (Vitamin D2) [Vitamin D2] Med 02/03/20 10:00 Active 50,000 unit PO Q7D Furosemide 20 mg [Lasix 20 mg] Med 01/28/20 10:00 Active 20 mg PO DAILY Ketamine HCl 50 mg/ml [Ketamine HCl 50 MG/ML] Med 01/27/20 15:37 Discontinued 10 mg .ROUTE .STK-MED ONE Levothyroxine Sodium 100 Mcg [Synthroid 100 Mcg] Med 01/28/20 06:00 Active 100 mcg PO DAILY@0600 Metoprolol Tartrate 50 mg [Lopressor 50 MG] Med 01/27/20 22:00 Active 100 mg PO BID Multivitamins,Therapeutic Tab* [Theragran Multivitamin* Med 01/28/20 10:00 Active ] 1 tab PO DAILY NaCl 0.9% 1000 ml [Sodium Chloride 0.9% 1000 ML] 1,000 Med 01/27/20 21:15 Active ml IV 100 mls/hr PANTOPRAZOLE 40 mg Tablet [Protonix 40MG Tablet] Med 01/27/20 17:00 Active 40 mg PO DAILY Potassium Chloride 10 Meq Tab* [Klor Con 10 MEQ] Med 01/28/20 10:00 Active 10 meq PO DAILY Propofol 200 mg/20 ml [Diprivan 200 mg/20 ml] Med 01/27/20 15:37 Discontinued 200 mg IV .STK-MED ONE Ringers Solution,Lactated [Lactated Ringers] 1,000 ml Med 01/27/20 15:04 Discontinued IV UD Sacubitril/Valsartan [Entresto 49 mg-51 mg Tablet] Med 01/27/20 22:00 Active 1 tablet PO BID Simvastatin 10 mg [Zocor 10MG] Med 01/28/20 10:00 Active 10 mg PO DAILY Sucralfate 1 gm [Carafate 1 GM] Med 01/27/20 16:30 Active 1 g PO ACHS Patient Care Notes (Last 24 hours) 01/28/20 09:13 Case Management Note by Danielle Diaz Spoke with pt about needs at discharge. Pt lives with her daughter and her son lives next door. She says she has plenty of help from the two of them and her other daughter. She is mobile without assistance. Pt denies needing assistance at home. Initialized on 01/28/20 09:13 - END OF NOTE 01/27/20 16:12 Nursing Note by Suyapa Alfaro Patient is back to room from [facility] Initialized on 01/27/20 16:12 - END OF NOTE 01/27/20 15:18 (created 01/27/20 15:15) Nursing Note by Suyapa Alfaro I called 's office to let him know was proceeding with an EGD on patient. [facility] is here to get her now. Initialized on 01/27/20 15:15 - END OF NOTE 01/27/20 15:05 (created 01/27/20 15:21) Nursing Note by Jyothi Navas Dr rounding on patient, Explained to patient with dark coffee ground emesis that she need to have EGD today to find out where patient is bleeding. Patient was explained procedure, verbalized understanding. Will have procedure this afternoon. Consents signed and verbalized understanding. Initialized on 01/27/20 15:21 - END OF NOTE 01/27/20 14:49 Nursing Note by Jyothi Navas Call placed to Dr Willson to report blood levels. Spoke to cintia, waiting for further orders. Initialized on 01/27/20 14:49 - END OF NOTE 01/27/20 13:37 Nursing Note by Suyapa Alfaro I called consult to office and is preparation center coordinator for [facility]. Initialized on 01/27/20 13:37 - END OF NOTE 01/27/20 13:00 (created 01/27/20 14:34) Nursing Note by Suyapa Alfaro I called [facility] and spoke to Mirian MIR about consult for GI Bleed. Initialized on 01/27/20 14:34 - END OF NOTE - Vitals & Intake/Output Vital Signs: Vital Signs Temperature 98.3 F 01/28/20 08:00 Pulse Rate 96 H 01/28/20 10:13 Respiratory Rate 20 01/28/20 08:00 Blood Pressure 120/63 01/28/20 10:13 O2 Sat by Pulse Oximetry 99 01/28/20 08:00 Intake & Output: Intake & Output 01/25/20 01/26/20 01/27/20 01/28/20 11:59 11:59 11:59 11:59 Intake Total 2165 Output Total 1100 Balance 1065 Weight 72 kg - Lab Result Diagrams: 01/28/20 08:37 Lab Results-Last 24 Hrs: Lab Results-Last 24 Hours 01/27/20 01/27/20 01/27/20 Range/Units 13:30 13:30 13:45 WBC 6.9 (4.0-10.5) K/mm3 RBC 3.60 L (4.1-5.4) M/mm3 Hgb 10.7 L (12.0-16.0) gm/dl Hct 33.3 L (35-47) % MCV 92.5 (78-100) fl MCH 29.7 (26-32) pg MCHC 32.1 (32-36) g/dl RDW 14.8 H (11.5-14.0) % Plt Count 272 (150-450) K/mm3 MPV 10.5 (7.5-11.0) fl PT 18.4 H (9.95-12.35) SECONDS INR 1.61 (0.8-3.0) ABO Group O Rh Factor POSITIVE Antibody Screen NEGATIVE (NEGATIVE) Crossmatch COMPATIBLE (COMPATIBLE) 01/27/20 01/28/20 Range/Units 13:45 08:37 WBC 5.5 (4.0-10.5) K/mm3 RBC 3.22 L (4.1-5.4) M/mm3 Hgb 9.4 L (12.0-16.0) gm/dl Hct 30.2 L (35-47) % MCV 93.8 (78-100) fl MCH 29.2 (26-32) pg MCHC 31.1 L (32-36) g/dl RDW 14.8 H (11.5-14.0) % Plt Count 248 (150-450) K/mm3 MPV 10.2 (7.5-11.0) fl PT (9.95-12.35) SECONDS INR (0.8-3.0) ABO Group Rh Factor Antibody Screen (NEGATIVE) Crossmatch COMPATIBLE (COMPATIBLE) - Procedures and Test Procedures and Tests throughout Hospitalization: PREOPERATIVE DIAGNOSIS: GI bleed, hemoglobin 10. POSTOPERATIVE DIAGNOSES: 1) The patient has an anterior duodenal ulcer with acute activity and a thrombus. 2) There is also a little narrowing of the pylorus. - Discharge Disposition: Home, Self-Care Condition: Stable Prescriptions: No Action Simvastatin 10 mg PO DAILY Potassium Chloride 10 Meq Tab* [Klor Con 10 MEQ] 8 meq PO DAILY Levothyroxine Sodium 100 Mcg [Synthroid 100 Mcg] 100 mcg PO DAILY Aspirin EC 81 mg [Ecotrin 81 mg] 81 mg PO DAILY Apixaban [Eliquis] 2.5 mg PO BID Amlodipine Besylate 2.5 mg PO DAILY Furosemide 20 mg [Lasix 20 mg] 20 mg PO DAILY 30 Days #30 tablet Metoprolol Tartrate 50 mg [Lopressor 50 MG] 100 mg PO BID 30 Days #120 tablet Sacubitril/Valsartan [Entresto 49 mg-51 mg Tablet] 1 tab PO BID Multivitamin [Multivitamins] 1 each PO DAILY Ergocalciferol (Vitamin D2) [Vitamin D] 50,000 units PO BID Ascorbic Acid 500 mg [Vitamin C 500 MG] 500 mg PO BID Digoxin 62.5 mcg PO DAILY Calcium Carbonate [Calcium] 500 mg PO BID Acetaminophen 325 mg [Tylenol 325 mg] 650 mg PO Q6H PRN PRN Reason: temp/PINO Follow up with: ADAN WILLSON MD [Primary Care Provider] - 1 Week
[2020-01-28 13:23] VITALS: BP 115/75; PULSE 88
[2020-01-29] MEDS ORDERED: Lanoxin 0.125MG TABLET PO SCH (10:00)
[2020-02-03] MEDS ORDERED: VITAMIN D2 PO SCH (10:00)
== END 2020-01-28 15:03 | disposition home or self-care (01) ==
LOC: MED SURG 13:00
PROVIDERS: ADMIT General Practice; ATTEND General Practice
DX: K26.0 Acute duodenal ulcer with hemorrhage (principal); K31.1 Adult hypertrophic pyloric stenosis; E03.9 Hypothyroidism, unspecified; I10 Essential (primary) hypertension; I25.10 Atherosclerotic heart disease of native coronary artery without angina pectoris; I25.2 Old myocardial infarction; Z79.01 Long term (current) use of anticoagulants; Z79.899 Other long term (current) drug therapy
CPT/HCPCS: 36415; 85027; 85610; 86850; 86900; 86901; 86922; 99140; G0378; J2704; A9270-GY

== ENCOUNTER 2020-01-31 22:05 | Observation (INO) | payer MEDICARE ==
[2020-01-31] MEDS ORDERED: BABY ASPIRIN 81 MG CHEW PO ONE (22:32)
[2020-01-31] MEDS ORDERED: NITRO-BID 2% UD PACKETS TOP ONE (22:34)
[2020-01-31] MEDS ORDERED: BABY ASPIRIN 81 MG CHEW ONE (22:35)
[2020-01-31] MEDS ORDERED: NITRO-BID 2% UD PACKETS ONE (22:35)
[2020-01-31 22:42] LABS: Absolute Neutrophil Ct (ANC) 7.45 (1.4-6.9); BASOPHIL % 0.2 % (0.0-0.4); Basophil (Absolute #) 0.02 (0-0.4); Eosinophil % 0.6 % (0.00-5.0); Eosinophil (Absolute #) 0.05 (0-0.5); Hemoglobin 10.3 gm/dl (12.0-16.0); Lymphocyte (Absolute #) 0.83 (1.0-4.6); Lymphocytes % 9.3 % (24.0-44.0); Mean Corpuscular Hgb Concent. 31.2 g/dl (32-36); Mean Platelet Volume 10.5 fl (7.5-11.0); Monocyte (Absolute #) 0.58 (0.0-1.3); Monocytes % 6.5 % (0.0-12.0); Neutrophil % 83.4 % (36.0-66.0); Platelet Count 266 K/mm3 (150-450); Red Blood Count 3.55 M/mm3 (4.1-5.4); Red Cell Distribution Width 14.7 % (11.5-14.0); White Blood Count 8.9 K/mm3 (4.0-10.5)
--- NOTE | 2020-01-31 22:49 | ERPHSYRPT ---
- History of Present Illness Time Seen by Provider: 01/31/20 22:30 Historian: patient Exam Limitations: no limitations Patient Subjective Stated Complaint: pt c/o chest pain "pressure" to center of chest Triage Nursing Assessment: pt c/o chest pain which is more like pressure to center of chest, which started at 1830 today. Pain never got any better so decided to come to ER. Rates pain a 6, denies pain radiating anywhere. Pt was discharged from [facility] on Friday afternoon for bleeding ulcer. Physician History: 84 years old female with history of atrial fibrillation currently off of Eliquis /aspirin because of recent GI bleed, coronary artery disease status post stenting, hypertension, hyperlipidemia presented in the ER with sudden onset substernal's chest pain around 6:30 PM, continuous, mild to moderate intensity, dull pressure sensation without any radiation and unable to correlate with any significant aggravating or relieving factors. Denies any difficulty breathing. No fever chills or cough reported. Timing/Duration: today, sudden, worse Activities at Onset: rest Quality: fullness, pressure Location: substernal, central Chest Pain Radiation: no radiation Severity of Pain-Max: moderate Severity of Pain-Current: moderate Modifying Factors: Improves With: nothing Associated Symptoms: denies symptoms Nitro Today/Relief: no nitro taken today Aspirin Treatment Today: no aspirin today Allergies/Adverse Reactions: No Known Drug Allergies Allergy (Verified 01/31/20 22:20) Home Medications: Levothyroxine Sodium 100 Mcg [Synthroid 100 Mcg] 100 mcg PO DAILY 10/24/18 [History] Potassium Chloride 10 Meq Tab* [Klor Con 10 MEQ] 8 meq PO DAILY 10/24/18 [ History] Simvastatin 10 mg PO HS 10/24/18 [History] Amlodipine Besylate 2.5 mg PO DAILY 01/24/19 [History] Sacubitril/Valsartan [Entresto 49 mg-51 mg Tablet] 1 tab PO BID 01/10/20 [ History] Ascorbic Acid 500 mg [Vitamin C 500 MG] 500 mg PO DAILY 01/27/20 [History] Calcium Carbonate [Calcium] 500 mg PO BID 01/27/20 [History] Digoxin 62.5 mcg PO DAILY 01/27/20 [History] Ergocalciferol (Vitamin D2) [Vitamin D] 50,000 units PO BID 01/27/20 [History] Multivitamin [Multivitamins] 1 each PO DAILY 01/27/20 [History] Ferrous Sulfate [Iron] 650 mg PO DAILY 01/31/20 [History] Hx Tetanus, Diphtheria Vaccination/Date Given: Yes Hx Influenza Vaccination/Date Given: Yes Hx Pneumococcal Vaccination/Date Given: Yes Immunizations Up to Date: Yes Travel Risk - International Travel Have you traveled outside of the country in past 3 weeks: No Have you or anyone close to you been diagnosed with or: No Do your reside in a community with a known COVID-19 case?: Yes If Yes where:: [place] - Coronavirus Screening Has patient experienced Coronavirus symptoms: No - Review of Systems Constitutional: No Symptoms Eyes: No Symptoms Ears, Nose, & Throat: No Symptoms Respiratory: No Symptoms Cardiac: Chest Pain Abdominal/Gastrointestinal: No Symptoms Genitourinary Symptoms: No Symptoms Musculoskeletal: No Symptoms Skin: No Symptoms Neurological: No Symptoms Psychological: No Symptoms Endocrine: No Symptoms Hematologic/Lymphatic: No Symptoms Immunological/Allergic: No Symptoms - Past Medical History Pertinent Past Medical History: Yes Neurological History: No Pertinent History ENT History: No Pertinent History Cardiac History: Angina, Arrhythmia, Congestive Heart Failure, Coronary Artery Disease, Hypertension, Myocardial Infarction ([place]) Respiratory History: CHF Endocrine Medical History: Hypothyroidism Musculoskeletal History: No Pertinent History GI Medical History: GERD History: Renal Disease Psycho-Social History: No Pertinent History Female Reproductive Disorders: No Pertinent History Other Medical History: cardiac stents 2006 - Past Surgical History Past Surgical History: Yes Neuro Surgical History: No Pertinent History Cardiac: Cardiac Catheterization, Cardiac Stent Respiratory: No Pertinent History Gastrointestinal: No Pertinent History Genitourinary: No Pertinent History Musculoskeletal: No Pertinent History Female Surgical History: Hysterectomy Other Surgical History: 2 cardiac stents in 2006 - Social History Smoking Status: Former smoker Exposure to second hand smoke: No Drug Use: none Patient Lives Alone: No - Female History Hx Now: No - Nursing Vital Signs Nursing Vital Signs: Initial Vital Signs Temperature 97.5 F 01/31/20 22:06 Pulse Rate 90 01/31/20 22:06 Respiratory Rate 18 01/31/20 22:06 Blood Pressure 145/96 01/31/20 22:06 O2 Sat by Pulse Oximetry 99 01/31/20 22:06 Pain Scale Pain Intensity 6 - Physical Exam General Appearance: no apparent distress Eye Exam: PERRL/EOMI, eyes nml inspection Ears, Nose, Throat Exam: normal ENT inspection, TMs normal, pharynx normal Neck Exam: normal inspection, non-tender Respiratory Exam: normal breath sounds, lungs clear, No respiratory distress Cardiovascular Exam: normal heart sounds, irregular, capillary refill <2 sec, No edema Gastrointestinal/Abdomen Exam: soft Pelvic Exam: not done Back Exam: normal inspection Extremity Exam: normal inspection, normal range of motion Neurologic Exam: alert, oriented x 3, cooperative Skin Exam: normal color SpO2 Interpretation: normal SpO2: 96 O2 Delivery: Room Air - Course Nursing assessment & vital signs reviewed: Yes EKG Interpreted by Me: RATE (92), NORMAL AXIS, NORMAL INTERVALS, Other (ST Depression in inferolateral leads) Ordered Tests: Active Orders 24 hr Category Date Time Status [employer] STAT Care 01/31/20 22:21 Active EKG-ER Only STAT Care 01/31/20 22:21 Active IV Insertion STAT Care 01/31/20 22:21 Active Pulse Oximetry (ED) STAT Care 01/31/20 22:21 Active CHEST 1 VIEW (PORTABLE) Stat Exams 01/31/20 22:33 Taken CBC W DIFF Stat Lab 01/31/20 22:15 Completed CMP Stat Lab 01/31/20 22:15 Completed NT PRO BNP Stat Lab 01/31/20 22:15 Completed TROPONIN Q3H Lab 01/31/20 22:15 Completed TROPONIN Q3H Lab 02/01/20 01:45 Ordered TROPONIN Q3H Lab 02/01/20 04:45 Ordered TROPONIN Q3H Lab 02/01/20 07:45 Ordered TROPONIN Q3H Lab 02/01/20 10:45 Ordered Medication Summary Discontinued Medications Generic Name Dose Route Start Last Admin Trade Name Freq PRN Reason Stop Dose Admin Aspirin 324 mg 01/31/20 22:32 01/31/20 22:37 Baby Aspirin 81 Mg Chew PO 01/31/20 22:33 324 mg STAT ONE Administration Aspirin Confirm 01/31/20 22:35 Baby Aspirin 81 Mg Chew Administered 01/31/20 22:36 Dose 324 mg .ROUTE .STK-MED ONE Nitroglycerin 1 gm 01/31/20 22:34 01/31/20 22:37 Nitro-Bid 2% Ud Packets TOP 01/31/20 22:35 1 gm STAT ONE Administration Nitroglycerin Confirm 01/31/20 22:35 Nitro-Bid 2% Ud Packets Administered 01/31/20 22:36 Dose 1 gm .ROUTE .STK-MED ONE Lab/Rad Data: Laboratory Result Diagrams 01/31/20 22:15 01/31/20 22:15 Laboratory Results 01/31/20 01/31/20 01/31/20 Range/Units 22:15 22:15 22:15 WBC 8.9 (4.0-10.5) K/mm3 RBC 3.55 L (4.1-5.4) M/mm3 Hgb 10.3 L (12.0-16.0) gm/dl Hct 33.0 L (35-47) % MCV 93.0 (78-100) fl MCH 29.0 (26-32) pg MCHC 31.2 L (32-36) g/dl RDW 14.7 H (11.5-14.0) % Plt Count 266 (150-450) K/mm3 MPV 10.5 (7.5-11.0) fl Gran % 83.4 H (36.0-66.0) % Eos # (Auto) 0.05 (0-0.5) Absolute Lymphs (auto) 0.83 L (1.0-4.6) Absolute Monos (auto) 0.58 (0.0-1.3) Lymphocytes % 9.3 L (24.0-44.0) % Monocytes % 6.5 (0.0-12.0) % Eosinophils % 0.6 (0.00-5.0) % Basophils % 0.2 (0.0-0.4) % Absolute Granulocytes 7.45 H (1.4-6.9) Basophils # 0.02 (0-0.4) Sodium 139 (137-145) mmol/L Potassium 3.4 L (3.5-5.1) mmol/L Chloride 107 (98-107) mmol/L Carbon Dioxide 21 L (22-30) mmol/L Anion Gap 14.1 (5-15) MEQ/L BUN 16 (7-17) mg/dL Creatinine 0.74 (0.52-1.04) mg/dL Estimated GFR > 60.0 ML/MIN Glucose 158 H (74-106) mg/dL Calcium 9.2 (8.4-10.2) mg/dL Total Bilirubin 0.40 (0.2-1.3) mg/dL AST 19 (14-36) U/L ALT 12 (0-35) U/L Alkaline Phosphatase 78 (38-126) U/L Troponin I < 0.012 (0.000-0.034) ng/mL NT-Pro-B Natriuret Pep 2080 H (0-1800) pg/mL Serum Total Protein 7.5 (6.3-8.2) g/dL Albumin 4.1 (3.5-5.0) g/dL - Progress Progress: improved Air Movement: fair Progress Note: 01/31/20 23:26 84 years old is evaluated for substernal chest pain continuous since 6:30 PM tonight. She is given aspirin and Nitropaste, on reevaluation pain is better. She still have some pressure sensation. Does not want any pain medications. EKG showed's A. fib rate controlled with inferolateral ST depressions. Initial troponins are negative. Chest x-ray negative for any acute findings. Discussed with Dr. WILLSON as patient has multiple risk factor for CAD and is being admitted for observation for rule out. Jeffry with patient understand and agrees with it. Blood Culture(s) Obtained: No Antibiotics given: No Discussed with : Sushil Will see patient in: hospital (observation) Counseled pt/family regarding: lab results, diagnosis, need for follow-up, rad results - Departure Departure Disposition: Observation Clinical Impression: Chest pain, rule out acute myocardial infarction, Atrial fibrillation Condition: Stable Critical Care Time: No Referrals: ADAN WILLSON MD [Primary Care Provider] -
[2020-01-31 23:03] LABS: ALBUMIN 4.1 g/dL (3.5-5.0); ALKALINE PHOSPHATASE 78 U/L (38-126); ANION GAP 14.1 MEQ/L (5-15); BLOOD UREA NITROGEN 16 mg/dL (7-17); CHLORIDE 107 mmol/L (98-107); Calcium 9.2 mg/dL (8.4-10.2); Carbon Dioxide 21 mmol/L (22-30); Creatinine 1 0.74 mg/dL (0.52-1.04); Glucose 158 mg/dL (74-106); NT PRO BNP 2080 pg/mL (0-1800); Potassium 3.4 mmol/L (3.5-5.1); SGOT/AST 19 U/L (14-36); SGPT/ALT 12 U/L (0-35); SODIUM 139 mmol/L (137-145); Total Protein 7.5 g/dL (6.3-8.2)
[2020-01-31] MEDS ORDERED: MILK OF MAGNESIA 30 ML PO PRN (23:51)
[2020-01-31] MEDS ORDERED: Senokot-S Tablet PO PRN (23:51)
[2020-01-31] MEDS ORDERED: MAALOX ES 30 ML UNIT DOSE PO PRN (23:51)
[2020-01-31] MEDS ORDERED: Zofran 4 MG/2 ML VIAL IV PRN (23:51)
[2020-01-31] MEDS ORDERED: TYLENOL 325 MG PO PRN (23:51)
[2020-02-01 05:56] LABS: Risk Ratio 3.7
--- NOTE | 2020-02-01 08:47 | XRAY ---
Indication: Chest pain. Comparison: January 24, 2019. Portable chest demonstrates diminished cardiomegaly and bibasilar pleural effusions with stable right apical calcified granuloma and left midlung fibrosis/scarring. Bony thorax intact again with mild osteopenia, degenerative changes, and mild scoliosis. No new/acute findings.
--- NOTE | 2020-02-01 11:30 | PCM.SSS ---
History of Present Illness - Chief Complaint Chief Complaint: CHEST PAIN RULE OUT [place] History of Present Illness: is a 84 years old female with history of atrial fibrillation currently off of Eliquis/aspirin because of recent GI bleed, coronary artery disease status post stenting, hypertension, hyperlipidemia presented in the ER with sudden onset substernal's chest pain around 6:30 PM, continuous, mild to moderate intensity, dull pressure sensation without any radiation and unable to correlate with any significant aggravating or relieving factors. Denies any difficulty breathing. No fever chills or cough reported. Timing/Duration: today, sudden, worse Activities at Onset: rest Quality: fullness, pressure Location: substernal, central Chest Pain Radiation: no radiation Severity of Pain-Max: moderate Severity of Pain-Current: moderate Modifying Factors: Improves With: nothing Associated Symptoms: denies symptoms Nitro Today/Relief: no nitro taken today Aspirin Treatment Today: no aspirin today - Review of Systems Constitutional: No Fever, No Chills Eyes: No Symptoms Ears, Nose, & Throat: No Symptoms Respiratory: No Cough, No Short Of Breath Cardiac: No Chest Pain, No Edema, No Syncope Abdominal/Gastrointestinal: No Abdominal Pain, No Nausea, No Vomiting, No Diarrhea Genitourinary Symptoms: No Dysuria Musculoskeletal: No Back Pain, No Neck Pain Skin: No Rash Neurological: No Dizziness, No Focal Weakness, No Sensory Changes Psychological: No Symptoms Endocrine: No Symptoms Hematologic/Lymphatic: No Symptoms Immunological/Allergic: No Symptoms Medications & Allergies Home Medications: Home Medication List Levothyroxine Sodium 100 Mcg [Synthroid 100 Mcg] 100 mcg PO DAILY 10/24/18 [History Confirmed 01/31/20] Potassium Chloride 10 Meq Tab* [Klor Con 10 MEQ] 8 meq PO DAILY 10/24/18 [ History Confirmed 01/31/20] Simvastatin 10 mg PO HS 10/24/18 [History Confirmed 01/31/20] Amlodipine Besylate 2.5 mg PO DAILY 01/24/19 [History Confirmed 01/31/20] Furosemide 20 mg [Lasix 20 mg] 20 mg PO DAILY 30 Days #30 tablet 01/28/19 [Rx Confirmed 01/31/20] Metoprolol Tartrate 50 mg [Lopressor 50 MG] 100 mg PO BID 30 Days #120 tablet 01/28/19 [Rx Confirmed 01/31/20] Sacubitril/Valsartan [Entresto 49 mg-51 mg Tablet] 1 tab PO BID 01/10/20 [ History Confirmed 01/31/20] Ascorbic Acid 500 mg [Vitamin C 500 MG] 500 mg PO DAILY 01/27/20 [History Confirmed 01/31/20] Calcium Carbonate [Calcium] 500 mg PO BID 01/27/20 [History Confirmed 01/31/20] Digoxin 62.5 mcg PO DAILY 01/27/20 [History Confirmed 01/31/20] Ergocalciferol (Vitamin D2) [Vitamin D] 50,000 units PO BID 01/27/20 [History Confirmed 01/31/20] Multivitamin [Multivitamins] 1 each PO DAILY 01/27/20 [History Confirmed ] Apixaban [Eliquis] 2.5 mg PO BID #0 01/28/20 [Rx Confirmed 01/31/20] Aspirin EC 81 mg [Ecotrin 81 mg] 81 mg PO DAILY #0 01/28/20 [Rx Confirmed 01/31/20] PANTOPRAZOLE 40 mg Tablet [Protonix 40MG Tablet] 0 mg PO DAILY 30 Days # 30 tab 01/28/20 [Rx Confirmed 01/31/20] Sucralfate 1 gm [Carafate 1 GM] 1 g PO ACHS 30 Days #120 tablet MDD 4 [Rx Confirmed 01/31/20] Ferrous Sulfate [Iron] 650 mg PO DAILY 01/31/20 [History Confirmed 01/31/20] Allergies/Adverse Reactions: Allergies Allergy/AdvReac Type Severity Reaction Status Date / Time No Known Drug Allergies Allergy Verified 01/31/20 22:20 - Past Medical History Past Medical History: Yes Neurological History: No Pertinent History ENT History: No Pertinent History Cardiac History: Angina, Arrhythmia, Congestive Heart Failure, Coronary Artery Disease, Hypertension, Myocardial Infarction ([place]) Respiratory History: CHF Endocrine Medical History: Hypothyroidism Musculoskelatal History: No Pertinent History GI Medical History: GERD History: Renal Disease Pyscho-Social History: No Pertinent History Reproductive Disorders: No Pertinent History Comment: cardiac stents 2006 - Female History Are you now?: No - Past Surgical History Past Surgical History: Yes Neuro Surgical History: No Pertinent History Cardiac History: Cardiac Catheterization, Cardiac Stent Respiratory Surgery: No Pertinent History GI Surgical History: No Pertinent History Genitourinary Surgical Hx: No Pertinent History Musculskeletal Surgical Hx: No Pertinent History Female Surgical History: Hysterectomy Other Surgical History: 2 cardiac stents in 2006 - Social History Smoking Status: Former smoker Exposure to second hand smoke: No Alcohol: None Drug Use: none - Physical Exam Vital Signs: Vital Signs - 24 hr Temp Pulse Pulse Resp BP Pulse Ox 02/01/20 07:49 98.3 F 69 18 158/83 97 02/01/20 04:00 99 F 80 18 133/63 95 02/01/20 00:26 99 F 68 18 135/68 97 01/31/20 23:27 96 01/31/20 23:27 96 01/31/20 22:56 85 24 131/74 96 01/31/20 22:21 96 01/31/20 22:12 98 H 01/31/20 22:06 97.5 F 90 18 145/96 99 General Appearance: no apparent distress, alert Neurologic Exam: alert, oriented x 3, cooperative, normal mood/affect, nml cerebellar function, nml station & gait, sensation nml, No motor deficits Eye Exam: PERRL/EOMI, eyes nml inspection Ears, Nose, Throat Exam: normal ENT inspection, TMs normal, pharynx normal, moist mucous membranes Neck Exam: normal inspection, non-tender, supple, full range of motion Respiratory Exam: normal breath sounds, lungs clear, No respiratory distress Cardiovascular Exam: regular rate/rhythm, normal heart sounds, normal peripheral pulses Gastrointestinal/Abdomen Exam: soft, normal bowel sounds, No tenderness, No mass Back Exam: normal inspection, normal range of motion, No CVA tenderness, No vertebral tenderness Extremity Exam: normal inspection, normal range of motion, pelvis stable Skin Exam: normal color, warm, dry, No rash Lymphatic Exam: No adenopathy Results - Labs Lab/Micro Results: Lab Results-Last 24 Hours 01/31/20 01/31/20 01/31/20 Range/Units 22:15 22:15 22:15 WBC 8.9 (4.0-10.5) K/mm3 RBC 3.55 L (4.1-5.4) M/mm3 Hgb 10.3 L (12.0-16.0) gm/dl Hct 33.0 L (35-47) % MCV 93.0 (78-100) fl MCH 29.0 (26-32) pg MCHC 31.2 L (32-36) g/dl RDW 14.7 H (11.5-14.0) % Plt Count 266 (150-450) K/mm3 MPV 10.5 (7.5-11.0) fl Gran % 83.4 H (36.0-66.0) % Eos # (Auto) 0.05 (0-0.5) Absolute Lymphs (auto) 0.83 L (1.0-4.6) Absolute Monos (auto) 0.58 (0.0-1.3) Lymphocytes % 9.3 L (24.0-44.0) % Monocytes % 6.5 (0.0-12.0) % Eosinophils % 0.6 (0.00-5.0) % Basophils % 0.2 (0.0-0.4) % Absolute Granulocytes 7.45 H (1.4-6.9) Basophils # 0.02 (0-0.4) Sodium 139 (137-145) mmol/L Potassium 3.4 L (3.5-5.1) mmol/L Chloride 107 (98-107) mmol/L Carbon Dioxide 21 L (22-30) mmol/L Anion Gap 14.1 (5-15) MEQ/L BUN 16 (7-17) mg/dL Creatinine 0.74 (0.52-1.04) mg/dL Estimated GFR > 60.0 ML/MIN Glucose 158 H (74-106) mg/dL Calcium 9.2 (8.4-10.2) mg/dL Total Bilirubin 0.40 (0.2-1.3) mg/dL AST 19 (14-36) U/L ALT 12 (0-35) U/L Alkaline Phosphatase 78 (38-126) U/L Troponin I < 0.012 (0.000-0.034) ng/mL NT-Pro-B Natriuret Pep 2080 H (0-1800) pg/mL Serum Total Protein 7.5 (6.3-8.2) g/dL Albumin 4.1 (3.5-5.0) g/dL Triglycerides (30-150) mg/dL Cholesterol (50-200) mg/dL LDL Cholesterol (30-100) mg/dL HDL Cholesterol (40-60) mg/dL Heart Disease Risk Ratio 02/01/20 02/01/20 02/01/20 Range/Units 01:48 04:40 04:40 WBC (4.0-10.5) K/mm3 RBC (4.1-5.4) M/mm3 Hgb (12.0-16.0) gm/dl Hct (35-47) % MCV (78-100) fl MCH (26-32) pg MCHC (32-36) g/dl RDW (11.5-14.0) % Plt Count (150-450) K/mm3 MPV (7.5-11.0) fl Gran % (36.0-66.0) % Eos # (Auto) (0-0.5) Absolute Lymphs (auto) (1.0-4.6) Absolute Monos (auto) (0.0-1.3) Lymphocytes % (24.0-44.0) % Monocytes % (0.0-12.0) % Eosinophils % (0.00-5.0) % Basophils % (0.0-0.4) % Absolute Granulocytes (1.4-6.9) Basophils # (0-0.4) Sodium (137-145) mmol/L Potassium (3.5-5.1) mmol/L Chloride (98-107) mmol/L Carbon Dioxide (22-30) mmol/L Anion Gap (5-15) MEQ/L BUN (7-17) mg/dL Creatinine (0.52-1.04) mg/dL Estimated GFR ML/MIN Glucose (74-106) mg/dL Calcium (8.4-10.2) mg/dL Total Bilirubin (0.2-1.3) mg/dL AST (14-36) U/L ALT (0-35) U/L Alkaline Phosphatase (38-126) U/L Troponin I 0.019 0.030 (0.000-0.034) ng/mL NT-Pro-B Natriuret Pep (0-1800) pg/mL Serum Total Protein (6.3-8.2) g/dL Albumin (3.5-5.0) g/dL Triglycerides 87 (30-150) mg/dL Cholesterol 156 (50-200) mg/dL LDL Cholesterol 104 H (30-100) mg/dL HDL Cholesterol 42 (40-60) mg/dL Heart Disease Risk Ratio 3.7 02/01/20 Range/Units 07:45 WBC (4.0-10.5) K/mm3 RBC (4.1-5.4) M/mm3 Hgb (12.0-16.0) gm/dl Hct (35-47) % MCV (78-100) fl MCH (26-32) pg MCHC (32-36) g/dl RDW (11.5-14.0) % Plt Count (150-450) K/mm3 MPV (7.5-11.0) fl Gran % (36.0-66.0) % Eos # (Auto) (0-0.5) Absolute Lymphs (auto) (1.0-4.6) Absolute Monos (auto) (0.0-1.3) Lymphocytes % (24.0-44.0) % Monocytes % (0.0-12.0) % Eosinophils % (0.00-5.0) % Basophils % (0.0-0.4) % Absolute Granulocytes (1.4-6.9) Basophils # (0-0.4) Sodium (137-145) mmol/L Potassium (3.5-5.1) mmol/L Chloride (98-107) mmol/L Carbon Dioxide (22-30) mmol/L Anion Gap (5-15) MEQ/L BUN (7-17) mg/dL Creatinine (0.52-1.04) mg/dL Estimated GFR ML/MIN Glucose (74-106) mg/dL Calcium (8.4-10.2) mg/dL Total Bilirubin (0.2-1.3) mg/dL AST (14-36) U/L ALT (0-35) U/L Alkaline Phosphatase (38-126) U/L Troponin I 0.026 (0.000-0.034) ng/mL NT-Pro-B Natriuret Pep (0-1800) pg/mL Serum Total Protein (6.3-8.2) g/dL Albumin (3.5-5.0) g/dL Triglycerides (30-150) mg/dL Cholesterol (50-200) mg/dL LDL Cholesterol (30-100) mg/dL HDL Cholesterol (40-60) mg/dL Heart Disease Risk Ratio - Radiology Impressions Radiology Exams & Impressions: Radiology Procedures Category Date Time Status CHEST 1 VIEW (PORTABLE) Stat Exams 01/31/20 22:33 Completed - Other Procedures and Tests Respiratory Therapy 02/02/20 05:00 EKG ONCE 02/03/20 05:00 EKG ONCE 02/04/20 05:00 EKG ONCE Assessment/Plan (1) Chest pain, rule out acute myocardial infarction Current Visit: Yes Status: Acute Code(s): R07.9 - CHEST PAIN, UNSPECIFIED (2) Atrial fibrillation Current Visit: Yes Status: Chronic Code(s): I48.91 - UNSPECIFIED ATRIAL FIBRILLATION (3) Hypertension Current Visit: No Status: Chronic Qualifiers: Hypertension type: essential hypertension Qualified Code(s): I10 - Essential (primary) hypertension Code(s): I10 - ESSENTIAL (PRIMARY) HYPERTENSION Hospital Summary - Hospital Course Hospital Course: Last Vital Signs Temp 98.3 F 02/01/20 07:49 Pulse 69 02/01/20 07:49 Resp 18 02/01/20 07:49 BP 158/83 02/01/20 07:49 Pulse Ox 97 02/01/20 07:49 Allergies No Known Drug Allergies Allergy (Verified 01/31/20 22:20) Active Medications Acetaminophen (Tylenol 325 Mg) 650 mg PO Q4H PRN PRN PRN Reason: PAIN AND/OR FEVER Stop: 03/01/20 23:50 Al Hydrox/Mg Hydrox/Simethicone (Maalox Es 30 Ml Unit Dose) 30 ml PO Q4H PRN PRN PRN Reason: INDIGESTION Stop: 03/01/20 23:50 Magnesium Hydroxide (Milk Of Magnesia 30 Ml) 30 - 60 ml PO QDP PRN PRN Reason: CONSTIPATION Stop: 03/01/20 23:50 Ondansetron HCl (Zofran 4 Mg/2 Ml Vial) 4 mg IV Q4H PRN PRN PRN Reason: NAUSEA/VOMITING Stop: 03/01/20 23:50 Senna/Docusate Sodium (Senokot-S Tablet) 2 udtab PO BID PRN PRN PRN Reason: CONSTIPATION Stop: 03/01/20 23:50 Intake & Output 01/31/20 02/01/20 11:59 11:59 Intake Total 480 Balance 480 Weight 73.4 kg Lab Tests 01/31/20 01/31/20 01/31/20 22:15 22:15 22:15 WBC 8.9 RBC 3.55 L Hgb 10.3 L Hct 33.0 L MCV 93.0 MCH 29.0 MCHC 31.2 L RDW 14.7 H Plt Count 266 MPV 10.5 Gran % 83.4 H Eos # (Auto) 0.05 Absolute Lymphs (auto) 0.83 L Absolute Monos (auto) 0.58 Lymphocytes % 9.3 L Monocytes % 6.5 Eosinophils % 0.6 Basophils % 0.2 Absolute Granulocytes 7.45 H Basophils # 0.02 Sodium 139 Potassium 3.4 L Chloride 107 Carbon Dioxide 21 L Anion Gap 14.1 BUN 16 Creatinine 0.74 Estimated GFR > 60.0 Glucose 158 H Calcium 9.2 Total Bilirubin 0.40 AST 19 ALT 12 Alkaline Phosphatase 78 Troponin I < 0.012 NT-Pro-B Natriuret Pep 2080 H Serum Total Protein 7.5 Albumin 4.1 Triglycerides Cholesterol LDL Cholesterol HDL Cholesterol Heart Disease Risk Ratio 02/01/20 02/01/20 02/01/20 01:48 04:40 04:40 WBC RBC Hgb Hct MCV MCH MCHC RDW Plt Count MPV Gran % Eos # (Auto) Absolute Lymphs (auto) Absolute Monos (auto) Lymphocytes % Monocytes % Eosinophils % Basophils % Absolute Granulocytes Basophils # Sodium Potassium Chloride Carbon Dioxide Anion Gap BUN Creatinine Estimated GFR Glucose Calcium Total Bilirubin AST ALT Alkaline Phosphatase Troponin I 0.019 0.030 NT-Pro-B Natriuret Pep Serum Total Protein Albumin Triglycerides 87 Cholesterol 156 LDL Cholesterol 104 H HDL Cholesterol 42 Heart Disease Risk Ratio 3.7 02/01/20 07:45 WBC RBC Hgb Hct MCV MCH MCHC RDW Plt Count MPV Gran % Eos # (Auto) Absolute Lymphs (auto) Absolute Monos (auto) Lymphocytes % Monocytes % Eosinophils % Basophils % Absolute Granulocytes Basophils # Sodium Potassium Chloride Carbon Dioxide Anion Gap BUN Creatinine Estimated GFR Glucose Calcium Total Bilirubin AST ALT Alkaline Phosphatase Troponin I 0.026 NT-Pro-B Natriuret Pep Serum Total Protein Albumin Triglycerides Cholesterol LDL Cholesterol HDL Cholesterol Heart Disease Risk Ratio - Vitals & Intake/Output Vital Signs: Vital Signs Temperature 98.3 F 02/01/20 07:49 Pulse Rate 69 02/01/20 07:49 Respiratory Rate 18 02/01/20 07:49 Blood Pressure 158/83 02/01/20 07:49 O2 Sat by Pulse Oximetry 97 02/01/20 07:49 Intake & Output: Intake & Output 01/29/20 01/30/20 01/31/20 02/01/20 11:59 11:59 11:59 11:59 Intake Total 480 Balance 480 Weight 73.4 kg - Lab Result Diagrams: 01/31/20 22:15 01/31/20 22:15 Lab Results-Last 24 Hrs: Lab Results-Last 24 Hours 01/31/20 01/31/20 01/31/20 Range/Units 22:15 22:15 22:15 WBC 8.9 (4.0-10.5) K/mm3 RBC 3.55 L (4.1-5.4) M/mm3 Hgb 10.3 L (12.0-16.0) gm/dl Hct 33.0 L (35-47) % MCV 93.0 (78-100) fl MCH 29.0 (26-32) pg MCHC 31.2 L (32-36) g/dl RDW 14.7 H (11.5-14.0) % Plt Count 266 (150-450) K/mm3 MPV 10.5 (7.5-11.0) fl Gran % 83.4 H (36.0-66.0) % Eos # (Auto) 0.05 (0-0.5) Absolute Lymphs (auto) 0.83 L (1.0-4.6) Absolute Monos (auto) 0.58 (0.0-1.3) Lymphocytes % 9.3 L (24.0-44.0) % Monocytes % 6.5 (0.0-12.0) % Eosinophils % 0.6 (0.00-5.0) % Basophils % 0.2 (0.0-0.4) % Absolute Granulocytes 7.45 H (1.4-6.9) Basophils # 0.02 (0-0.4) Sodium 139 (137-145) mmol/L Potassium 3.4 L (3.5-5.1) mmol/L Chloride 107 (98-107) mmol/L Carbon Dioxide 21 L (22-30) mmol/L Anion Gap 14.1 (5-15) MEQ/L BUN 16 (7-17) mg/dL Creatinine 0.74 (0.52-1.04) mg/dL Estimated GFR > 60.0 ML/MIN Glucose 158 H (74-106) mg/dL Calcium 9.2 (8.4-10.2) mg/dL Total Bilirubin 0.40 (0.2-1.3) mg/dL AST 19 (14-36) U/L ALT 12 (0-35) U/L Alkaline Phosphatase 78 (38-126) U/L Troponin I < 0.012 (0.000-0.034) ng/mL NT-Pro-B Natriuret Pep 2080 H (0-1800) pg/mL Serum Total Protein 7.5 (6.3-8.2) g/dL Albumin 4.1 (3.5-5.0) g/dL Triglycerides (30-150) mg/dL Cholesterol (50-200) mg/dL LDL Cholesterol (30-100) mg/dL HDL Cholesterol (40-60) mg/dL Heart Disease Risk Ratio 02/01/20 02/01/20 02/01/20 Range/Units 01:48 04:40 04:40 WBC (4.0-10.5) K/mm3 RBC (4.1-5.4) M/mm3 Hgb (12.0-16.0) gm/dl Hct (35-47) % MCV (78-100) fl MCH (26-32) pg MCHC (32-36) g/dl RDW (11.5-14.0) % Plt Count (150-450) K/mm3 MPV (7.5-11.0) fl Gran % (36.0-66.0) % Eos # (Auto) (0-0.5) Absolute Lymphs (auto) (1.0-4.6) Absolute Monos (auto) (0.0-1.3) Lymphocytes % (24.0-44.0) % Monocytes % (0.0-12.0) % Eosinophils % (0.00-5.0) % Basophils % (0.0-0.4) % Absolute Granulocytes (1.4-6.9) Basophils # (0-0.4) Sodium (137-145) mmol/L Potassium (3.5-5.1) mmol/L Chloride (98-107) mmol/L Carbon Dioxide (22-30) mmol/L Anion Gap (5-15) MEQ/L BUN (7-17) mg/dL Creatinine (0.52-1.04) mg/dL Estimated GFR ML/MIN Glucose (74-106) mg/dL Calcium (8.4-10.2) mg/dL Total Bilirubin (0.2-1.3) mg/dL AST (14-36) U/L ALT (0-35) U/L Alkaline Phosphatase (38-126) U/L Troponin I 0.019 0.030 (0.000-0.034) ng/mL NT-Pro-B Natriuret Pep (0-1800) pg/mL Serum Total Protein (6.3-8.2) g/dL Albumin (3.5-5.0) g/dL Triglycerides 87 (30-150) mg/dL Cholesterol 156 (50-200) mg/dL LDL Cholesterol 104 H (30-100) mg/dL HDL Cholesterol 42 (40-60) mg/dL Heart Disease Risk Ratio 3.7 02/01/20 Range/Units 07:45 WBC (4.0-10.5) K/mm3 RBC (4.1-5.4) M/mm3 Hgb (12.0-16.0) gm/dl Hct (35-47) % MCV (78-100) fl MCH (26-32) pg MCHC (32-36) g/dl RDW (11.5-14.0) % Plt Count (150-450) K/mm3 MPV (7.5-11.0) fl Gran % (36.0-66.0) % Eos # (Auto) (0-0.5) Absolute Lymphs (auto) (1.0-4.6) Absolute Monos (auto) (0.0-1.3) Lymphocytes % (24.0-44.0) % Monocytes % (0.0-12.0) % Eosinophils % (0.00-5.0) % Basophils % (0.0-0.4) % Absolute Granulocytes (1.4-6.9) Basophils # (0-0.4) Sodium (137-145) mmol/L Potassium (3.5-5.1) mmol/L Chloride (98-107) mmol/L Carbon Dioxide (22-30) mmol/L Anion Gap (5-15) MEQ/L BUN (7-17) mg/dL Creatinine (0.52-1.04) mg/dL Estimated GFR ML/MIN Glucose (74-106) mg/dL Calcium (8.4-10.2) mg/dL Total Bilirubin (0.2-1.3) mg/dL AST (14-36) U/L ALT (0-35) U/L Alkaline Phosphatase (38-126) U/L Troponin I 0.026 (0.000-0.034) ng/mL NT-Pro-B Natriuret Pep (0-1800) pg/mL Serum Total Protein (6.3-8.2) g/dL Albumin (3.5-5.0) g/dL Triglycerides (30-150) mg/dL Cholesterol (50-200) mg/dL LDL Cholesterol (30-100) mg/dL HDL Cholesterol (40-60) mg/dL Heart Disease Risk Ratio - Radiology Exams Ordered Rad Exams-Entire Visit: Radiology Procedures Category Date Time Status CHEST 1 VIEW (PORTABLE) Stat Exams 01/31/20 22:33 Completed - Procedures and Test Procedures and Tests throughout Hospitalization: Therapy Orders & Screens 01/31/20 23:51 EKG Q8HX2,QAMX3,PRN Comment: 02/01/20 07:00 EKG ONCE Comment: Diagnosis: CHEST PAIN RULE OUT [place] 02/02/20 05:00 EKG ONCE Comment: Diagnosis: CHEST PAIN RULE OUT [place] 02/03/20 05:00 EKG ONCE Comment: Diagnosis: CHEST PAIN RULE OUT [place] 02/04/20 05:00 EKG ONCE Comment: Diagnosis: CHEST PAIN RULE OUT [place] - Discharge Discharge Date: 02/01/20 Disposition: Home, Self-Care Condition: Stable Prescriptions: Continue Simvastatin 10 mg PO HS Potassium Chloride 10 Meq Tab* [Klor Con 10 MEQ] 8 meq PO DAILY Levothyroxine Sodium 100 Mcg [Synthroid 100 Mcg] 100 mcg PO DAILY Amlodipine Besylate 2.5 mg PO DAILY Furosemide 20 mg [Lasix 20 mg] 20 mg PO DAILY 30 Days #30 tablet Metoprolol Tartrate 50 mg [Lopressor 50 MG] 100 mg PO BID 30 Days #120 tablet Sacubitril/Valsartan [Entresto 49 mg-51 mg Tablet] 1 tab PO BID Multivitamin [Multivitamins] 1 each PO DAILY Ergocalciferol (Vitamin D2) [Vitamin D] 50,000 units PO BID Ascorbic Acid 500 mg [Vitamin C 500 MG] 500 mg PO DAILY Digoxin 62.5 mcg PO DAILY Calcium Carbonate [Calcium] 500 mg PO BID Apixaban [Eliquis] 2.5 mg PO BID #0 Aspirin EC 81 mg [Ecotrin 81 mg] 81 mg PO DAILY #0 PANTOPRAZOLE 40 mg Tablet [Protonix 40MG Tablet] 0 mg PO DAILY 30 Days #30 tab Sucralfate 1 gm [Carafate 1 GM] 1 g PO ACHS 30 Days #120 tablet MDD 4 Ferrous Sulfate [Iron] 650 mg PO DAILY Follow up with: ADAN WILLSON MD [Primary Care Provider] - 1 Week
[2020-02-01] MEDS ORDERED: ELIQUIS 2.5 MG TABLET PO SCH (13:00)
[2020-02-01] MEDS ORDERED: Protonix 40MG Tablet PO SCH (13:00)
[2020-02-01] MEDS ORDERED: NORVASC 5 MG PO SCH (13:00)
[2020-02-01] MEDS ORDERED: Lanoxin 0.125MG TABLET PO SCH (13:00)
[2020-02-01] MEDS ORDERED: Vitamin C 500 MG PO SCH (13:00)
[2020-02-01] MEDS ORDERED: Klor Con 10 MEQ PO SCH (13:00)
[2020-02-01] MEDS ORDERED: ECOTRIN 81 MG PO SCH (13:00)
[2020-02-01] MEDS ORDERED: Calcium 500MG W/Vit D Tablet PO SCH (13:00)
[2020-02-01] MEDS ORDERED: FEOSOL 325 MG PO SCH (13:00)
[2020-02-01] MEDS ORDERED: LASIX 20 MG PO SCH (13:00)
[2020-02-01] MEDS ORDERED: SYNTHROID 100 MCG PO SCH (13:00)
[2020-02-01] MEDS ORDERED: THERAGRAN MULTIVITAMIN PO SCH (13:00)
[2020-02-01] MEDS ORDERED: Lopressor 50 MG PO SCH (13:00)
[2020-02-01 14:23] VITALS: BP 111/53; PULSE 77; O2SAT 96
[2020-02-01] MEDS ORDERED: Carafate 1 GM PO SCH (16:30)
[2020-02-01] MEDS ORDERED: VITAMIN D2 PO SCH (22:00)
[2020-02-01] MEDS ORDERED: NON-FORMULARY ITEM (Calcium Carbonate [Calcium] 500 MG) PO SCH (22:00)
[2020-02-01] MEDS ORDERED: ENTRESTO 49 MG-51 MG TABLET PO SCH (22:00)
[2020-02-01] MEDS ORDERED: NON-FORMULARY ITEM (Apixaban [Eliquis] 2.5 MG) PO SCH (22:00)
[2020-02-01] MEDS ORDERED: Zocor 10MG PO SCH (22:00)
[2020-02-02] MEDS ORDERED: NON-FORMULARY ITEM (Multivitamin [Multivitamins] 1 EACH) PO SCH (10:00)
== END 2020-02-01 13:58 | disposition home or self-care (01) ==
LOC: ED 22:05 → MED SURG 23:50
PROVIDERS: ADMIT General Practice; ATTEND General Practice
DX: R07.9 Chest pain, unspecified (principal); I10 Essential (primary) hypertension; I48.91 Unspecified atrial fibrillation; E78.5 Hyperlipidemia, unspecified; I25.10 Atherosclerotic heart disease of native coronary artery without angina pectoris; E03.9 Hypothyroidism, unspecified; Z79.01 Long term (current) use of anticoagulants; I25.2 Old myocardial infarction; Z79.899 Other long term (current) drug therapy
CPT/HCPCS: 36000; 36415; 71045; 80053; 80061; 83721; 83880; 84484; 85025; 93005; 93041; 93268; 94760; 99285; G0378; A9270-GY

== ENCOUNTER 2021-10-11 15:48 | Observation (INO) | payer MEDICARE ==
[2021-10-11 17:06] LABS: INFLUENZA A NEGATIVE (NEGATIVE); INFLUENZA B NEGATIVE (NEGATIVE); RESPIRATORY SYNCTIAL VIRUS NEGATIVE (Negative); SARS-CoV-2 Xpert Express NEGATIVE (NEGATIVE)
[2021-10-11] MEDS ORDERED: Levofloxacin 500MG/100ML D5W 500 MG/100 ML BAG IV SCH (18:00)
[2021-10-11] MEDS: DUONEB 0.5-3 MG/3 ml Neb IH SCH (18:35)
[2021-10-11] MEDS ORDERED: DUONEB 0.5-3 MG/3 ml Neb IH ONE (18:35)
[2021-10-11 18:36] LABS: Absolute Neutrophil Ct (ANC) 4.08 (1.4-6.9); BASOPHIL % 0.2 % (0.0-0.4); Basophil (Absolute #) 0.01 (0-0.4); Eosinophil (Absolute #) 0.11 (0-0.5); Hematocrit 48.9 % (35-47); Hemoglobin 15.5 gm/dl (12.0-16.0); Lymphocyte (Absolute #) 0.89 (1.0-4.6); Lymphocytes % 16.5 % (24.0-44.0); Mean Cell Volume 91.9 fl (78-100); Mean Corpuscular Hemoglobin 29.1 pg (26-32); Mean Corpuscular Hgb Concent. 31.7 g/dl (32-36); Mean Platelet Volume 10.3 fl (7.5-11.0); Monocyte (Absolute #) 0.32 (0.0-1.3); Monocytes % 5.9 % (0.0-12.0); Neutrophil % 75.4 % (36.0-66.0); Platelet Count 242 K/mm3 (150-450); Red Blood Count 5.32 M/mm3 (4.1-5.4); Red Cell Distribution Width 15.2 % (11.5-14.0); White Blood Count 5.4 K/mm3 (4.0-10.5)
[2021-10-11 18:49] LABS: ANION GAP 16.9 MEQ/L (5-15); Calcium 9.3 mg/dL (8.4-10.2); Creatinine 1 1.08 mg/dL (0.52-1.04); EST GLOMERULAR FILTRATION RATE 51.4 ML/MIN; Potassium 4.6 mmol/L (3.5-5.1)
[2021-10-12] MEDS: DUONEB 0.5-3 MG/3 ml Neb IH SCH ×5 (00:12→23:44)
--- NOTE | 2021-10-12 07:09 | PCM.NOTE ---
Date and Time: 10/12/21706 Subjective Assessment: doing little better - Review of Systems Constitutional: No Fever, No Chills Eyes: No Symptoms Ears, Nose, & Throat: No Symptoms Respiratory: Cough, Orthopnea, Short Of Breath Cardiac: No Chest Pain, No Edema, No Syncope Abdominal/Gastrointestinal: No Abdominal Pain, No Nausea, No Vomiting, No Diarrhea Genitourinary Symptoms: No Dysuria Musculoskeletal: No Back Pain, No Neck Pain Skin: No Rash Neurological: No Dizziness, No Focal Weakness, No Sensory Changes Psychological: No Symptoms Endocrine: No Symptoms Hematologic/Lymphatic: No Symptoms Immunological/Allergic: No Symptoms Objective Exam General Appearance: no apparent distress, alert Neurologic Exam: alert, oriented x 3, cooperative, normal mood/affect, nml cerebellar function, sensation nml, No motor deficits Skin Exam: normal color, warm, dry Eye Exam: PERRL, EOMI, eyes nml inspection Ears, Nose, Throat Exam: normal ENT inspection, pharynx normal, moist mucous membranes Neck Exam: normal inspection, non-tender, supple, full range of motion Respiratory Exam: diminished breath sounds, crackles/rales, rhonchi, No respiratory distress Cardiovascular Exam: regular rate/rhythm, normal heart sounds Gastrointestinal/Abdomen Exam: soft, No tenderness, No mass Extremity Exam: normal inspection, normal range of motion Back Exam: normal inspection, normal range of motion, No CVA tenderness, No vertebral tenderness Pelvic Exam: deferred Rectal Exam: deferred OBJECTIVE DATA Vital Signs: Vital Signs - 24 hr Temp Pulse Resp BP Pulse Ox 10/12/21 05:51 78 18 97 10/12/21 04:00 97.4 F 66 18 119/56 97 10/12/21 00:12 66 16 93 L 10/11/21 23:59 97.7 F 67 16 157/73 97 10/11/21 18:35 69 16 97 10/11/21 18:20 97.1 F 70 20 132/68 95 Pain Assessment - Last Documented Pain Intensity 0 Intake and Output: Intake & Output 10/09/21 10/10/21 10/11/21 10/12/21 11:59 11:59 11:59 11:59 Intake Total 500 Output Total 700 Balance -200 Weight 68.9 kg Lab Results: Lab Results-Last 24 Hours 10/11/21 10/11/21 10/11/21 Range/Units 16:11 18:15 18:15 WBC 5.4 (4.0-10.5) K/mm3 RBC 5.32 (4.1-5.4) M/mm3 Hgb 15.5 (12.0-16.0) gm/dl Hct 48.9 H (35-47) % MCV 91.9 (78-100) fl MCH 29.1 (26-32) pg MCHC 31.7 L (32-36) g/dl RDW 15.2 H (11.5-14.0) % Plt Count 242 (150-450) K/mm3 MPV 10.3 (7.5-11.0) fl Gran % 75.4 H (36.0-66.0) % Eos # (Auto) 0.11 (0-0.5) Absolute Lymphs (auto) 0.89 L (1.0-4.6) Absolute Monos (auto) 0.32 (0.0-1.3) Lymphocytes % 16.5 L (24.0-44.0) % Monocytes % 5.9 (0.0-12.0) % Eosinophils % 2.0 (0.00-5.0) % Basophils % 0.2 (0.0-0.4) % Absolute Granulocytes 4.08 (1.4-6.9) Basophils # 0.01 (0-0.4) Sodium 134 L (137-145) mmol/L Potassium 4.6 (3.5-5.1) mmol/L Chloride 99 (98-107) mmol/L Carbon Dioxide 22 (22-30) mmol/L Anion Gap 16.9 H (5-15) MEQ/L BUN 42 H (7-17) mg/dL Creatinine 1.08 H (0.52-1.04) mg/dL Estimated GFR 51.4 ML/MIN Glucose 110 H (74-106) mg/dL Calcium 9.3 (8.4-10.2) mg/dL Influenza Type A Ag NEGATIVE (NEGATIVE) Influenza Type B Ag NEGATIVE (NEGATIVE) RSV (PCR) NEGATIVE (Negative) SARS-CoV-2 (PCR) NEGATIVE (NEGATIVE) Radiology Exams: Radiology Procedures Category Date Time Status CHEST 2 VIEWS (PA AND LAT) Stat Exams 10/11/21 17:25 Taken Assessment/Plan (1) COPD (chronic obstructive pulmonary disease) with acute bronchitis Current Visit: Yes Status: Acute Assessment & Plan: Chief Complaint Diagnosis Pneumonia Allergies Allergy/AdvReac Type Severity Reaction Status Date / Time No Known Drug Allergies Allergy Verified 10/11/21 18:13 Vital Signs (Last 24 hours) Temp Pulse Resp BP Pulse Ox 10/12/21 05:51 78 18 97 10/12/21 04:00 97.4 F 66 18 119/56 97 10/12/21 00:12 66 16 93 L 10/11/21 23:59 97.7 F 67 16 157/73 97 10/11/21 18:35 69 16 97 10/11/21 18:20 97.1 F 70 20 132/68 95 Home Medications Medication Instructions Recorded Confirmed Last Taken Type Ca/D3/Mag Ox/Zinc/Insurance Verification Clerk/Dario/Bor 1 each PO DAILY 10/11/21 10/11/21 10/11/21 History [Calcium 600+D3 Plus Caplet] Nitroglycerin 0.4 mg Tablet 0.3 mg SL UD 10/11/21 10/11/21 Unknown History [Nitrostat 0.4 MG Tablet] Non-Formulary Drug [Non-Formulary 1 tab PO Q6H PRN PRN 10/11/21 10/11/21 Unknown History Item] PANTOPRAZOLE 40 mg Tablet 40 mg PO DAILY 10/11/21 10/11/21 10/11/21 History [Protonix 40MG Tablet] Current Medications Generic Name Dose Route Start Last Admin Trade Name Freq PRN Reason Stop Dose Admin Albuterol/Ipratropium 3 ml 10/11/21 19:00 10/12/21 05:51 Ipratropium/Albuterol Sulfate 3 Ml Ampul.Neb IH 11/10/21 18:59 3 ml Q6HRT PATRICIA Administration Levofloxacin/Dextrose 500 mg in 100 mls @ 100 mls/hr 10/11/21 18:00 10/11/21 20:11 Levofloxacin 500mg/100ml D5w IV 11/10/21 17:59 100 mls/hr Q24H10 PATRICIA Administration Discontinued Medications Generic Name Dose Route Start Last Admin Trade Name Freq PRN Reason Stop Dose Admin Albuterol/Ipratropium Confirm 10/11/21 18:35 Ipratropium/Albuterol Sulfate 3 Ml Ampul.Neb Administered 10/11/21 18:36 Dose 3 ml IH .STK-MED ONE Intake & Output (Last 24 hours) 10/09/21 10/10/21 10/11/21 10/12/21 11:59 11:59 11:59 11:59 Intake Total 500 Output Total 700 Balance -200 Weight 68.9 kg Microbiology Results (Last 24 hours) 10/11/21 18:30 Blood Blood Culture Gram Stain - Pending 10/11/21 18:30 Blood Blood Culture - Pending 10/11/21 18:15 Blood Blood Culture Gram Stain - Pending 10/11/21 18:15 Blood Blood Culture - Pending Laboratory Results (Last 24 hours) 10/11/21 10/11/21 10/11/21 18:15 18:15 16:11 WBC 5.4 RBC 5.32 Hgb 15.5 Hct 48.9 H MCV 91.9 MCH 29.1 MCHC 31.7 L RDW 15.2 H Plt Count 242 MPV 10.3 Gran % 75.4 H Eos # (Auto) 0.11 Absolute Lymphs (auto) 0.89 L Absolute Monos (auto) 0.32 Lymphocytes % 16.5 L Monocytes % 5.9 Eosinophils % 2.0 Basophils % 0.2 Absolute Granulocytes 4.08 Basophils # 0.01 Sodium 134 L Potassium 4.6 Chloride 99 Carbon Dioxide 22 Anion Gap 16.9 H BUN 42 H Creatinine 1.08 H Estimated GFR 51.4 Glucose 110 H Calcium 9.3 Influenza Type A Ag NEGATIVE Influenza Type B Ag NEGATIVE RSV (PCR) NEGATIVE SARS-CoV-2 (PCR) NEGATIVE Orders (Last 24 hours) Category Date Time Status Up Ad Bibiana TOLERATED Activity 10/11/21 17:25 Active IV Insertion ROUTINE Care 10/11/21 17:25 Active Implement Pneumonia Pathway ROUTINE Care 10/11/21 17:25 Active Miscellaneous Nursing Order ROUTINE Care 10/11/21 17:[address] in Observation ROUTINE Care 10/11/21 17:25 Active Heart-Healthy Diet Diet 10/11/21 Dinner Active CHEST 2 VIEWS (PA AND LAT) Stat Exams 10/11/21 17:25 Taken BLOOD CULTURE Stat Lab 10/11/21 18:30 Received BMP Stat Lab 10/11/21 18:15 Completed CBC W DIFF Stat Lab 10/11/21 18:15 Completed Albuterol/Ipratropium 3ml Neb* [DUONEB 0.5-3 MG/3 ml Med 10/11/21 18:35 Discontinued Neb] 3 ml IH .STK-MED ONE Albuterol/Ipratropium 3ml Neb* [DUONEB 0.5-3 MG/3 ml Med 10/11/21 19:00 Active Neb] 3 ml IH Q6HRT Levofloxacin [Levofloxacin 500MG/100ML D5W] Med 10/11/21 18:00 Active 500 mg in 100 ml IV Q24H10 Pulse Oximetry .spot check RT 10/11/21 18:39 Active Respiratory Therapy Assessment DAILY RT 10/12/21 07:00 Active Respiratory Therapy Consult ROUTINE RT 10/11/21 17:25 Completed Patient Care Notes (Last 24 hours) 10/11/21 22:52 Nursing Note by Adry Roman Patient stated that she took her night time home medications prior to arrival to the hospital and that she does not need any more of her home medications tonight. Initialized on 10/11/21 22:52 - END OF NOTE Code(s): J44.0 - CHR OBSTRUCTIVE PULMON DISEASE WITH (ACUTE) LOWER RESP INFCT; J20.9 - ACUTE BRONCHITIS, UNSPECIFIED
[2021-10-12] MEDS ORDERED: NON-FORMULARY ITEM (Non-Formulary Drug [Non-Formulary Item] 1 EACH Each) PO PRN (07:13)
[2021-10-12] MEDS ORDERED: Nitrostat 0.4 MG Tablet SL SCH (07:15)
[2021-10-12] MEDS ORDERED: Nitrostat 0.4 MG Tablet SL PRN (07:27)
[2021-10-12] MEDS ORDERED: Lomotil PO PRN (07:29)
[2021-10-12] MEDS: Carafate 1 GM PO SCH ×2 (07:58→12:14)
[2021-10-12] MEDS: ENTRESTO 49 MG-51 MG TABLET PO SCH ×2 (08:00→22:51)
[2021-10-12] MEDS: Lopressor 50 MG PO SCH ×2 (08:00→22:51)
[2021-10-12] MEDS: ELIQUIS 2.5 MG TABLET PO SCH ×2 (08:02→22:51)
[2021-10-12] MEDS: Klor Con 10 MEQ PO SCH ×2 (08:02→22:51)
--- NOTE | 2021-10-12 08:45 | XRAY ---
Indication: Pneumonia. Comparison: January 31, 2020. PA/lateral chest unchanged again demonstrating minimal scattered fibrosis/scarring, COPD, right upper lobe calcified granuloma, and borderline cardiomegaly. Bony thorax intact again with osteopenia, degenerative changes, and scoliosis. No new/acute abnormalities.
[2021-10-12] MEDS ORDERED: KEFLEX 250 MG PO SCH (10:00)
[2021-10-12] MEDS ORDERED: Protonix 40MG Tablet PO SCH (10:00)
[2021-10-12] MEDS ORDERED: NORVASC 5 MG PO SCH (10:00)
[2021-10-12] MEDS ORDERED: NON-FORMULARY ITEM (Amlodipine Besylate [Amlodipine Besylate] 2.5 MG Tablet) PO SCH (10:00)
[2021-10-12] MEDS ORDERED: Calcium 500MG W/Vit D Tablet PO SCH (10:00)
[2021-10-12] MEDS ORDERED: LASIX 20 MG PO SCH (10:00)
[2021-10-12] MEDS ORDERED: [UNRECOGNIZED DRUG - OTHER] PO SCH (10:00)
[2021-10-12] MEDS ORDERED: ECOTRIN 81 MG PO SCH (10:00)
[2021-10-12] MEDS ORDERED: SYNTHROID 100 MCG PO SCH (10:00)
[2021-10-12] MEDS ORDERED: NON-FORMULARY ITEM (Apixaban [Eliquis] 5 MG Tablet) PO SCH (10:00)
[2021-10-12] MEDS ORDERED: FEOSOL 325 MG PO SCH (10:00)
[2021-10-12] MEDS ORDERED: Lanoxin 0.125MG TABLET PO SCH (10:00)
[2021-10-12] MEDS: solu-MEDROL IV SCH ×2 (10:13→22:51)
[2021-10-12] MEDS ORDERED: solu-MEDROL IV SCH (14:00)
[2021-10-12] MEDS ORDERED: solu-MEDROL 40 MG, Sterile H2O 10 ml 1 ML IV SCH ×2 (14:00)
[2021-10-12] MEDS ORDERED: Levofloxacin 500MG/100ML D5W 500 MG/100 ML BAG IV SCH (14:00)
[2021-10-12] MEDS ORDERED: Zocor 10MG PO SCH (22:00)
[2021-10-13 00:07] VITALS: O2SAT 94
[2021-10-13] MEDS: solu-MEDROL IV SCH (05:48)
[2021-10-13 07:04] VITALS: BP 166/88
[2021-10-13] MEDS: DUONEB 0.5-3 MG/3 ml Neb IH SCH (07:14)
[2021-10-13 07:18] VITALS: PULSE 86
== END 2021-10-13 09:50 | disposition home or self-care (01) ==
LOC: MED SURG 17:44
PROVIDERS: ADMIT General Practice; ATTEND General Practice
DX: J44.0 Chronic obstructive pulmonary disease with (acute) lower respiratory infection (principal); J20.9 Acute bronchitis, unspecified; I10 Essential (primary) hypertension; E78.5 Hyperlipidemia, unspecified; E03.9 Hypothyroidism, unspecified; I25.2 Old myocardial infarction; Z20.828 Contact with and (suspected) exposure to other viral communicable diseases
CPT/HCPCS: 0241U; 36415; 71046; 80048; 83880; 85025; 87040; 93268; 94640; 94667; 94760; G0378; J1956; J2920; A9270-GY

== ENCOUNTER 2022-08-17 18:31 | Emergency (ER) | payer MEDICARE ==
[2022-08-17 18:52] VITALS: O2SAT 96
[2022-08-17 19:22] LABS: Appearance CLOUDY (CLEAR); Bilirubin NEGATIVE (NEGATIVE); Glucose 100 mg/dL (NEGATIVE); Ketones NEGATIVE (NEGATIVE); Nitrite POSITIVE (NEGATIVE); Protein,Urine Dip 100 (Negative); RBC MODERATE Ery/ul (0-5); Urobilinogen 0.2 mg/dL (0-1)
[2022-08-17 19:23] LABS: Dipstick done @ ? MAIN LAB
[2022-08-17 19:26] LABS: Bacteria MODERATE /HPF (NEGATIVE); Crystals Unidentified 25-50 /HPF (NEGATIVE); Epithelial Cells RARE /HPF (FEW); WBC >100 /HPF (0-5)
[2022-08-17 19:27] LABS: Urine Cultured Indicated? YES
[2022-08-17] MEDS ORDERED: Rocephin 1000 MG INJ IM ONE (19:36)
--- NOTE | 2022-08-17 19:42 | ERPHSYRPT ---
- History of Present Illness Time Seen by Provider: 08/17/22 18:42 Source: patient Exam Limitations: no limitations Patient Subjective Stated Complaint: pt here for burning with urination and urgencey. has has had 2 UTI's in last 2 months, finished antiboitcs 2 dasy ago Triage Nursing Assessment: pt alert, resp easy, face mask in place,abd soft, skin w/d/p. no edema , urine clear yellow Physician History: 86 years old female with history of recurrent UTIs, finished course of antibiotics 2 days ago presented in the ER with increased urinary frequency, sense of incomplete voiding, urgency and burning with progressive worsening. Patient also reports some suprapubic discomfort. No flank pain. No fever or chills reported. Reports having similar symptoms in the past with UTI. Timing/Duration: day(s) (2), gradual onset, worse Activites at Onset: none Quality: sharpness Onset Location: urethral Severity of Pain-Max: moderate Severity of Pain-Current: mild Prior abdominal problems: UTI Sexual intercourse history: non-contributory Modifying Factors: Worsens With: urinating Associated Symptoms: dysuria, urinary frequency, lower back pain, No fever, No chills, No loss of bladder control Allergies/Adverse Reactions: No Known Drug Allergies Allergy (Verified 08/17/22 18:57) Home Medications: Levothyroxine Sodium 100 Mcg [Synthroid 100 Mcg] 100 mcg PO DAILY 10/24/18 [History] Potassium Chloride Tab* [Klor Con] 10 meq PO BID 10/24/18 [History] Simvastatin 10 mg PO HS 10/24/18 [History] Amlodipine Besylate 2.5 mg PO DAILY 01/24/19 [History] Sacubitril/Valsartan [Entresto 49 mg-51 mg Tablet] 1 tab PO BID 01/10/20 [History] Digoxin 125 mcg PO DAILY 01/27/20 [History] Ferrous Sulfate [Iron] 650 mg PO DAILY 01/31/20 [History] Ca/D3/Mag Ox/Zinc/Engineering Clerk/Dario/Bor [Calcium 600+D3 Plus Caplet] 1 each PO DAILY 10/11/21 [History] Nitroglycerin 0.4 mg Tablet [Nitrostat 0.4 MG Tablet] 0.3 mg SL UD 10/11/21 [History] Non-Formulary Drug [Non-Formulary Item] 1 tab PO Q6H PRN PRN 10/11/21 [History] PANTOPRAZOLE 40 mg Tablet [Protonix 40MG Tablet] 40 mg PO DAILY 10/11/21 [History] Hx Tetanus, Diphtheria Vaccination/Date Given: Yes Hx Influenza Vaccination/Date Given: Yes Hx Pneumococcal Vaccination/Date Given: Yes Travel Risk - International Travel Have you traveled outside of the country in past 3 weeks: No - Coronavirus Screening Are you exhibiting any of the following symptoms?: No - Vaccine Status Have you recieved a Covid-19 vaccination: Yes [employer]: Moderna - Vaccination Dates Date of 2cond Vaccination (if applicable): 2020 - Review of Systems Constitutional: No Symptoms Eyes: No Symptoms Ears, Nose, & Throat: No Symptoms Respiratory: No Symptoms Cardiac: No Symptoms Abdominal/Gastrointestinal: Abdominal Pain Genitourinary Symptoms: Dysuria, Frequency, Hematuria Musculoskeletal: No Symptoms Skin: No Symptoms Neurological: No Symptoms Endocrine: No Symptoms Hematologic/Lymphatic: No Symptoms Immunological/Allergic: No Symptoms - Past Medical History Pertinent Past Medical History: Yes Neurological History: Stroke ENT History: Cataracts Cardiac History: Arrhythmia, Congestive Heart Failure, Coronary Artery Disease, High Cholesterol, Hypertension, Myocardial Infarction (SD) Respiratory History: Bronchitis, CHF Endocrine Medical History: Hypothyroidism Musculoskeletal History: Osteoarthritis GI Medical History: GERD History: Renal Disease Psycho-Social History: No Pertinent History Female Reproductive Disorders: No Pertinent History Other Medical History: PMHX: A-FIB, STENT PLACEMENT X 2, PARTIAL HYSTERECTOMY 10 YEARS - Past Surgical History Past Surgical History: Yes Neuro Surgical History: No Pertinent History Cardiac: Cardiac Catheterization, Cardiac Stent Respiratory: No Pertinent History Gastrointestinal: No Pertinent History Genitourinary: No Pertinent History Musculoskeletal: No Pertinent History Female Surgical History: Hysterectomy Other Surgical History: 2 cardiac stents in 2006 - Social History Smoking Status: Former smoker Exposure to second hand smoke: No Drug Use: none Patient Lives Alone: Yes - Nursing Vital Signs Nursing Vital Signs: Initial Vital Signs Temperature 97.0 F 08/17/22 18:52 Pulse Rate 69 08/17/22 18:52 Respiratory Rate 18 08/17/22 18:52 Blood Pressure 140/58 08/17/22 18:52 O2 Sat by Pulse Oximetry 96 08/17/22 18:52 Pain Scale Pain Intensity 2 - Physical Exam General Appearance: no apparent distress, alert Ears, Nose, Throat Exam: normal ENT inspection Neck Exam: normal inspection, supple, full range of motion Respiratory Exam: normal breath sounds, lungs clear Cardiovascular Exam: regular rate/rhythm, normal heart sounds Gastrointestinal/Abdomen Exam: soft, normal bowel sounds, tenderness (mild suprapubic) Back Exam: normal inspection, normal range of motion, No CVA tenderness Extremity Exam: normal inspection Neurologic Exam: alert, oriented x 3, cooperative Skin Exam: normal color SpO2 Interpretation: normal SpO2: 96 O2 Delivery: Room Air Ordered Tests: Active Orders 24 hr Category Date Time Status CULTURE,URINE Stat Lab 08/17/22 19:18 Received UA W/RFX CULTURE Stat Lab 08/17/22 19:18 Completed Medication Summary Discontinued Medications Generic Name Dose Route Start Last Admin Trade Name Jeffreyq PRN Reason Stop Dose Admin Ceftriaxone Sodium 1,000 mg 08/17/22 19:36 08/17/22 19:48 Ceftriaxone Sodium 1000 Mg Inj Vial IM 08/17/22 19:37 1,000 mg STAT ONE Administration Ceftriaxone Sodium Confirm 08/17/22 19:46 Ceftriaxone Sodium 1000 Mg Inj Vial Administered 08/17/22 19:47 Dose 1,000 mg .ROUTE .STK-MED ONE Lidocaine HCl Confirm 08/17/22 19:46 Lidocaine Hcl 1% 20 Ml Mdv 20 Ml Ml Administered 08/17/22 19:47 Dose 1 ml .ROUTE .STK-MED ONE Lab/Rad Data: Laboratory Results 08/17/22 Range/Units 19:18 Urinalys Dipstick Clnc MAIN LAB Urine Color DARK YELLOW (YELLOW) Urine Appearance CLOUDY (CLEAR) Urine pH 5.0 (5-6) Ur Specific [place] 1.010 (1.005-1.025) POC Urine Protein Conf 100 (Negative) Urine Ketones NEGATIVE (NEGATIVE) Urine Nitrite POSITIVE (NEGATIVE) Urine Bilirubin NEGATIVE (NEGATIVE) Urine Urobilinogen 0.2 (0-1) mg/dL Urine Leukocytes LARGE (NEGATIVE) Urine WBC (Auto) >100 (0-5) /HPF Urine RBC (Auto) 6-10 (0-2) /HPF U Epithel Cells (Auto) RARE (FEW) /HPF Urine Bacteria (Auto) MODERATE (NEGATIVE) /HPF Urine RBC MODERATE (0-5) Fady/ul Unidentified Crystals 25-50 (NEGATIVE) /HPF Ur Culture Indicated? YES Urine Glucose 100 (NEGATIVE) mg/dL - Progress Progress: unchanged Air Movement: good Progress Note: 08/17/22 19:54 Patient does have UTI and given a dose of Rocephin in here and will continue with cefpodoxime to go home and outpatient follow-up recommended. Cultures will be obtained and will change antibiotics as per culture sensitivity report. Patient is not in any distress, stable vitals, do not think needs any other work-up and is stable for discharge. Blood Culture(s) Obtained: No Antibiotics given: Yes Counseled pt/family regarding: lab results, diagnosis, need for follow-up - Departure Departure Disposition: Home Clinical Impression: Recurrent UTI (urinary tract infection) Condition: Stable Critical Care Time: No Referrals: ADAN WILLSON MD [Primary Care Provider] - Follow up/PCP as directed (In 2 days for reevaluation) Instructions: Urinary Tract Infection, Adult (DC) Additional Instructions: Tylenol as needed for pain. Plenty of fluids. Follow-up with your primary care for reevaluation. Follow urine culture sensitivity reports and may need to change antibiotics as per culture sensitivity recommendations. Return to ER for worsening symptoms of increased frequency urgency, fever chills, abdominal/flank pain etc. Prescriptions: Cefpodoxime Proxetil 100 mg PO BID 7 Days #14 tablet
[2022-08-17] MEDS ORDERED: XYLOCAINE 1% HCL 20 ML MDV ONE (19:46)
[2022-08-17] MEDS ORDERED: Rocephin 1000 MG INJ ONE (19:46)
[2022-08-17 20:00] VITALS: BP 126/67; PULSE 68
== END 2022-08-17 20:01 | disposition home or self-care (01) ==
LOC: ED 18:31
DX: N39.0 Urinary tract infection, site not specified (principal); Z79.899 Other long term (current) drug therapy
CPT/HCPCS: 81015; 87077; 87086; 87186; 96372; 99283; J0696

== ENCOUNTER 2023-01-22 09:09 | Emergency (ER) | payer MEDICARE ==
[2023-01-22] MEDS ORDERED: BABY ASPIRIN 81 MG CHEW PO ONE (09:38)
--- NOTE | 2023-01-22 09:41 | ERPHSYRPT ---
- History of Present Illness Time Seen by Provider: 01/22/23 09:20 Historian: patient, family Exam Limitations: no limitations Patient Subjective Stated Complaint: pt here for chest pain substernal started at 0400 this morning, hurts worse with deep breath, no cough or fever Triage Nursing Assessment: pt alert, arrived per wc, resp easy, face mask in place, skin w/d/p, no edema,chest clear Physician History: This is 87-year-old white female patient of Dr. Willson who has a history of atrial fibrillation and is no longer on a diuretic or digoxin and presents with sudden onset of sharp chest pain in 2 separate areas. The first and the anterior substernal, central chest and second and separate similar symptoms in her back. Patient denies coughing. She has painful respirations. She has not had fevers. She has not had any exposure to individuals with flu like symptoms. Patient is no longer on Eliquis. Patient states that she has the "watchman" in place and therefore they took her off the Eliquis. Patient has a history of elevated cholesterol, gastroesophageal reflux disease, hypothyroidism, hypertension and renal disease. Timing/Duration: today Activities at Onset: sleep Quality: sharpness (Mild) Location: substernal, central Chest Pain Radiation: no radiation Severity of Pain-Max: mild Severity of Pain-Current: mild Modifying Factors: Improves With: breathing (Worsens substernal central and alondra k.) Associated Symptoms: hurts to breathe, No nausea, No vomiting, No abdominal pain, No shortness of breath, No cough Prior Chest Pain/Cardiac Workup: cardiac cath, echocardiography, heart attack Nitro Today/Relief: no nitro taken today Aspirin Treatment Today: no aspirin today Allergies/Adverse Reactions: No Known Drug Allergies Allergy (Verified 01/22/23 09:12) Home Medications: Levothyroxine Sodium 100 Mcg [Synthroid 100 Mcg] 100 mcg PO DAILY 10/24/18 [History] Simvastatin 10 mg PO HS 10/24/18 [History] Amlodipine Besylate 2.5 mg PO DAILY 01/24/19 [History] Sacubitril/Valsartan [Entresto 49 mg-51 mg Tablet] 1 tab PO BID 01/10/20 [History] Ca/D3/Mag Ox/Zinc/Car Repairer/Dario/Bor [Calcium 600+D3 Plus Caplet] 1 each PO DAILY 10/11/21 [History] Nitroglycerin 0.4 mg Tablet [Nitrostat 0.4 MG Tablet] 0.3 mg SL UD 10/11/21 [History] PANTOPRAZOLE 40 mg Tablet [Protonix 40MG Tablet] 40 mg PO DAILY 10/11/21 [History] Multivit-Min/FA/Lycopen/Lutein [Centrum Silver Ultra Men's Tab] 1 each PO DAILY 01/22/23 [History] Hx Tetanus, Diphtheria Vaccination/Date Given: Yes Hx Influenza Vaccination/Date Given: Yes Hx Pneumococcal Vaccination/Date Given: Yes Immunizations Up to Date: Yes Travel Risk - International Travel Have you traveled outside of the country in past 3 weeks: No - Coronavirus Screening Are you exhibiting any of the following symptoms?: No Close contact with a COVID-19 positive Pt in past 14-21 Days: No - Vaccine Status Have you recieved a Covid-19 vaccination: Yes 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[employer] - Vaccination Dates Date of 2cond Vaccination (if applicable): 2020 - Review of Systems Constitutional: No Symptoms Eyes: No Symptoms Ears, Nose, & Throat: No Symptoms Respiratory: Other (Painful respirations) Cardiac: Chest Pain Abdominal/Gastrointestinal: No Symptoms Genitourinary Symptoms: No Symptoms Musculoskeletal: No Symptoms Skin: No Symptoms Neurological: No Symptoms Psychological: No Symptoms Endocrine: No Symptoms Hematologic/Lymphatic: No Symptoms Immunological/Allergic: No Symptoms All Other Systems: Reviewed and Negative - Past Medical History Pertinent Past Medical History: Yes Neurological History: Stroke ENT History: Cataracts Cardiac History: Arrhythmia, Congestive Heart Failure, Coronary Artery Disease, High Cholesterol, Hypertension, Myocardial Infarction ([place]) Respiratory History: Bronchitis, CHF Endocrine Medical History: Hypothyroidism Musculoskeletal History: Osteoarthritis GI Medical History: GERD History: Renal Disease Psycho-Social History: No Pertinent History Female Reproductive Disorders: No Pertinent History Other Medical History: PMHX: A-FIB, STENT PLACEMENT X 2, PARTIAL HYSTERECTOMY 10 YEARS - Past Surgical History Past Surgical History: Yes Neuro Surgical History: No Pertinent History Cardiac: Cardiac Catheterization, Cardiac Stent Respiratory: No Pertinent History Gastrointestinal: No Pertinent History Genitourinary: No Pertinent History Musculoskeletal: No Pertinent History Female Surgical History: Hysterectomy Other Surgical History: 2 cardiac stents in 2005, watch man placed 2021 - Social History Smoking Status: Former smoker Exposure to second hand smoke: No Drug Use: none Patient Lives Alone: Yes - Nursing Vital Signs Nursing Vital Signs: Initial Vital Signs Temperature 97.0 F 01/22/23 09:09 Pulse Rate 106 H 01/22/23 09:09 Respiratory Rate 20 01/22/23 09:09 Blood Pressure 129/72 01/22/23 09:09 O2 Sat by Pulse Oximetry 98 01/22/23 09:09 Pain Scale Pain Intensity 4 - Physical Exam General Appearance: no apparent distress, alert, anxiety, thin Eye Exam: PERRL/EOMI, eyes nml inspection Ears, Nose, Throat Exam: normal ENT inspection, moist mucous membranes Neck Exam: normal inspection, non-tender, supple, full range of motion Respiratory Exam: normal breath sounds, chest tenderness (With respirations), airway intact, No lungs clear, No respiratory distress Cardiovascular Exam: normal peripheral pulses, irregular Gastrointestinal/Abdomen Exam: soft, normal bowel sounds, No tenderness Pelvic Exam: not done Rectal Exam: not done Back Exam: normal inspection, normal range of motion, No CVA tenderness, No vertebral tenderness Extremity Exam: normal inspection, normal range of motion, pelvis stable Neurologic Exam: alert, oriented x 3, cooperative, paster supervisor II-XII nml as tested, normal mood/affect, nml cerebellar function, nml station & gait, sensation nml Skin Exam: normal color, warm, dry Lymphatic Exam: No adenopathy SpO2 Interpretation: normal SpO2: 98 O2 Delivery: Room Air - Course Nursing assessment & vital signs reviewed: Yes EKG Interpreted by Me: RATE (102), Sinus Tach (Irregular rate.? A-fib), NORMAL AXIS, Other (Borderline prolonged [place] interval. No acute ischemic changes on today's EKG) Ordered Tests: Active Orders 24 hr Category Date Time Status Router Machine Operator STAT Care 01/22/23 09:38 Active EKG-ER Only STAT Care 01/22/23 09:38 Active IV Insertion STAT Care 01/22/23 09:38 Active Pulse Oximetry (ED) STAT Care 01/22/23 09:38 Active CHEST WITHOUT CONTRAST [CT] Stat Exams 01/22/23 09:39 Completed CBC W DIFF Stat Lab 01/22/23 10:11 Completed CMP Stat Lab 01/22/23 10:11 Completed NT PRO BNPII Stat Lab 01/22/23 10:11 Completed TROPONIN Q4H Lab 01/22/23 10:11 Completed TROPONIN Q4H Lab 01/22/23 12:27 Completed TROPONIN Q4H Lab 01/22/23 17:45 Ordered Medication Summary Discontinued Medications Generic Name Dose Route Start Last Admin Trade Name Sonali PRN Reason Stop Dose Admin Acetaminophen 650 mg 01/22/23 11:16 01/22/23 11:40 Acetaminophen 325 Mg Tablet PO 01/22/23 11:17 650 mg STAT ONE Administration Acetaminophen Confirm 01/22/23 11:39 Acetaminophen 325 Mg Tablet Administered 01/22/23 11:40 Dose 650 mg .ROUTE .STK-MED ONE Aspirin 324 mg 01/22/23 09:38 01/22/23 09:59 Aspirin 81 Mg Tab.Chew PO 01/22/23 09:39 324 mg STAT ONE Administration Lab/Rad Data: Laboratory Result Diagrams 01/22/23 10:11 01/22/23 10:11 Laboratory Results 01/22/23 01/22/23 01/22/23 Range/Units 12:27 10:11 10:11 WBC (4.0-10.5) x10^3/uL RBC (4.1-5.4) x10^6/uL Hgb (12.0-16.0) g/dL Hct (35-47) % MCV (78-100) fL MCH (26-32) pg MCHC (32-36) g/dL RDW (11.5-14.0) % Plt Count (150-450) x10^3/uL MPV (7.5-11.0) fL Gran % (36.0-66.0) % Immature Gran % (Auto) (0.00-0.4) % Nucleat RBC Rel Count (0.00-0.1) % Eos # (Auto) (0-0.5) x10^3/uL Immature Gran # (Auto) (0.00-0.03) x10^3u/L Absolute Lymphs (auto) (1.0-4.6) x10^3/uL Absolute Monos (auto) (0.0-1.3) x10^3/uL Absolute Nucleated RBC (0.00-0.01) x10^3u/L Lymphocytes % (24.0-44.0) % Monocytes % (0.0-12.0) % Eosinophils % (0.00-5.0) % Basophils % (0.0-0.4) % Absolute Granulocytes (1.4-6.9) x10^3/uL Basophils # (0-0.4) x10^3/uL Sodium 137 (137-145) mmol/L Potassium 4.6 (3.5-5.1) mmol/L Chloride 102 (98-107) mmol/L Carbon Dioxide 23 (22-30) mmol/L Anion Gap 16.1 H (5-15) MEQ/L BUN 45 H (7-17) mg/dL Creatinine 1.31 H (0.52-1.04) mg/dL Estimated GFR 41.0 ML/MIN Glucose 132 H (74-106) mg/dL Calcium 9.1 (8.4-10.2) mg/dL Total Bilirubin 0.50 (0.2-1.3) mg/dL AST 26 (14-36) U/L ALT 19 (0-35) U/L Alkaline Phosphatase 89 (38-126) U/L Troponin I 0.016 0.016 (0.000-0.034) ng/mL NT-Pro-B Natriuret Pep 3570 (<300) pg/mL Serum Total Protein 7.1 (6.3-8.2) g/dL Albumin 4.0 (3.5-5.0) g/dL Slides for Path Review 01/22/23 Range/Units 10:11 WBC 10.6 H (4.0-10.5) x10^3/uL RBC 4.47 (4.1-5.4) x10^6/uL Hgb 12.7 (12.0-16.0) g/dL Hct 40.7 (35-47) % MCV 91.1 (78-100) fL MCH 28.4 (26-32) pg MCHC 31.2 L (32-36) g/dL RDW 15.0 H (11.5-14.0) % Plt Count 183 (150-450) x10^3/uL MPV 10.0 (7.5-11.0) fL Gran % 86.1 H (36.0-66.0) % Immature Gran % (Auto) 0.3 (0.00-0.4) % Nucleat RBC Rel Count 0.0 (0.00-0.1) % Eos # (Auto) 0.02 (0-0.5) x10^3/uL Immature Gran # (Auto) 0.03 (0.00-0.03) x10^3u/L Absolute Lymphs (auto) 0.51 L (1.0-4.6) x10^3/uL Absolute Monos (auto) 0.87 (0.0-1.3) x10^3/uL Absolute Nucleated RBC 0.00 (0.00-0.01) x10^3u/L Lymphocytes % 4.8 L (24.0-44.0) % Monocytes % 8.2 (0.0-12.0) % Eosinophils % 0.2 (0.00-5.0) % Basophils % 0.4 (0.0-0.4) % Absolute Granulocytes 9.14 H (1.4-6.9) x10^3/uL Basophils # 0.04 (0-0.4) x10^3/uL Sodium (137-145) mmol/L Potassium (3.5-5.1) mmol/L Chloride (98-107) mmol/L Carbon Dioxide (22-30) mmol/L Anion Gap (5-15) MEQ/L BUN (7-17) mg/dL Creatinine (0.52-1.04) mg/dL Estimated GFR ML/MIN Glucose (74-106) mg/dL Calcium (8.4-10.2) mg/dL Total Bilirubin (0.2-1.3) mg/dL AST (14-36) U/L ALT (0-35) U/L Alkaline Phosphatase (38-126) U/L Troponin I (0.000-0.034) ng/mL NT-Pro-B Natriuret Pep (<300) pg/mL Serum Total Protein (6.3-8.2) g/dL Albumin (3.5-5.0) g/dL Slides for Path Review YES - Progress Progress: improved, re-examined Air Movement: good Progress Note: 01/22/23 10:58 CT scan of the chest without contrast shows borderline cardiomegaly with scattered pulmonary fibrosis/scarring. There are no acute cardiopulmonary abnormalities. This CT scan was interpreted by the radiologist and I reviewed the report. 01/22/23 13:03 This patient's medical issue is 1 of moderate complexity. The level of complexity and the prep was based on reviewing the patient's past medical history, medication list, history of present illness and physical findings on physical examination. The work-up included CT scan of the chest without contrast, placement of intravenous line, twelve-lead EKG which I interpreted on my own, CBC, CMP, troponin, BNP, repeat (3-hour) troponin. Patient states her symptoms are nearly resolved at the time of discharge. I reviewed all of the results of the studies and discussed these with the patient and her daughter. The discharge plan was discussed with the patient and the patient's daughter. This includes the patient taking her medication as prescribed. She is to follow-up with her primary care provider and screen printing press operator for further evaluation and management. Blood Culture(s) Obtained: Yes Antibiotics given: No Medical Desision Making - Independent Historian Additional History obtained from: Child - Discussion of managment Reviewed:: Test results Agreed on:: Treatment plan, need for follow-up - Diagnostic Testing Diagnostic test were ordered, analyzed, and reviewed by me: Yes Radiological Interpretation: Reviewed by me - Departure Departure Disposition: Home Clinical Impression: Non-cardiac chest pain Condition: Stable Critical Care Time: No Referrals: ADAN WILLSON MD [Primary Care Provider] - Follow up/PCP as directed Additional Instructions: Take all your medications as prescribed. Call your primary care provider today to make arrangements for follow-up appointment in the next 5 to 7 days. Call your screen printing press operator today to make arrangements for follow-up appointment within the next 5 to 7 days. Return to the emergency department if your symptoms recur and unable to secure an appointment with either your primary care physician or screen printing press operator
--- NOTE | 2023-01-22 10:12 | XRAY ---
Indication: Dyspnea. Painful respiration. Multiple contiguous axial images obtained through the chest without contrast. Comparison: None Lungs hyperinflated with mild diffuse scattered peripheral fibrosis/scarring greatest in both lung bases. Peripheral posterior right upper lobe 1 cm calcified granuloma. No suspicious pulmonary mass, infiltrate, or effusion. Heart borderline enlarged with scattered coronary calcifications and mitral valve replacement. Mild scattered aortic calcifications throughout. Tiny bilateral hilar calcified nodes. No pathologic mediastinal lymphadenopathy. Bony thorax intact with osteopenia, minimal degenerative changes throughout the spine, and mild dextroscoliosis. Limited upper abdomen demonstrates more extensive arteriosclerotic disease and a few small splenic calcified granulomas. Impression: Borderline cardiomegaly, scattered pulmonary fibrosis/scarring, arteriosclerotic disease chronic bony findings, and old granulomatous disease. No acute cardiopulmonary abnormalities.
[2023-01-22 10:13] LABS: Absolute Neutrophil Ct (ANC) 9.14 x10^3/uL (1.4-6.9); BASOPHIL % 0.4 % (0.0-0.4); Basophil (Absolute #) 0.04 x10^3/uL (0-0.4); Eosinophil % 0.2 % (0.00-5.0); Eosinophil (Absolute #) 0.02 x10^3/uL (0-0.5); Hematocrit 40.7 % (35-47); Hemoglobin 12.7 g/dL (12.0-16.0); IMMATURE GRAN # 0.03 x10^3u/L (0.00-0.03); IMMATURE GRAN % 0.3 % (0.00-0.4); Lymphocyte (Absolute #) 0.51 x10^3/uL (1.0-4.6); Lymphocytes % 4.8 % (24.0-44.0); Mean Cell Volume 91.1 fL (78-100); Mean Corpuscular Hemoglobin 28.4 pg (26-32); Mean Corpuscular Hgb Concent. 31.2 g/dL (32-36); Monocyte (Absolute #) 0.87 x10^3/uL (0.0-1.3); Monocytes % 8.2 % (0.0-12.0); Neutrophil % 86.1 % (36.0-66.0); Platelet Count 183 x10^3/uL (150-450); Red Blood Count 4.47 x10^6/uL (4.1-5.4); White Blood Count 10.6 x10^3/uL (4.0-10.5)
[2023-01-22 10:36] LABS: ANION GAP 16.1 MEQ/L (5-15); BILIRUBIN,TOTAL 0.5 mg/dL (0.2-1.3); Calcium 9.1 mg/dL (8.4-10.2); Creatinine 1 1.31 mg/dL (0.52-1.04); Potassium 4.6 mmol/L (3.5-5.1); Total Protein 7.1 g/dL (6.3-8.2)
[2023-01-22] MEDS ORDERED: TYLENOL 325 MG PO ONE (11:16)
[2023-01-22] MEDS ORDERED: TYLENOL 325 MG ONE (11:39)
[2023-01-22 12:13] VITALS: PULSE 76
[2023-01-22 12:20] LABS: Slide Review 1 YES
[2023-01-22 13:31] VITALS: BP 107/71; O2SAT 97
== END 2023-01-22 13:34 | disposition home or self-care (01) ==
LOC: ED 09:09
DX: R07.89 Other chest pain (principal); R06.00 Dyspnea, unspecified; E78.5 Hyperlipidemia, unspecified; I10 Essential (primary) hypertension; I50.9 Heart failure, unspecified; Z79.899 Other long term (current) drug therapy
CPT/HCPCS: 36000; 36415; 71250; 80053; 83880; 84484; 85025; 93005; 93041; 94760; 99284; A9270-GY

== ENCOUNTER 2023-04-12 22:09 | Emergency (ER) | payer MEDICARE ==
[2023-04-12 23:41] VITALS: O2SAT 96
[2023-04-12] MEDS ORDERED: TYLENOL 325 MG PO ONE (23:49)
--- NOTE | 2023-04-12 23:56 | ERPHSYRPT ---
- History of Present Illness Time Seen by Provider: 04/12/23 22:41 Historian: patient, family Exam Limitations: no limitations Patient Subjective Stated Complaint: pt states she had a coughing spell on friday and has been having pain in her lt ribs since. pain is worse with deep breath and cough. Triage Nursing Assessment: pt alert and oriented, answers questions approp. pt back to room per wheelchair and transfers to stretcher with standby assist. respirations nonlabored. skin warm and dry. respirations nonlabored, lungs cta bilat Physician History: 87-year-old female with multiple medical problems including atrial fibrillation, coronary artery disease, hypertension, hyperlipidemia presented in the ER with chief complaint of left anterior lower chest wall pain at the base of rib cage and manubrial sternum area for last 5 days after she had a coughing spell. Patient reports dull aching to sharp pain and got worse this evening after she coughed really hard. Patient reports improvement in the pain on its own on the way to the ER. Currently she has minimal pain. No difficulty breathing. Patient reports it hurts to take deep breath, cough, movements, palpation. She does not think it is cardiac and does not want cardiac work-up even EKG. Daughter is also involved in decision making of not doing this work-up. They do understand the risk of not doing PE/cardiac work-up and missing important piece of information in the process of diagnosis. Timing/Duration: day(s) (5), sudden, worse Quality: sharpness Location: other Severity of Pain-Max: moderate Severity of Pain-Current: mild Modifying Factors: Worsens With: coughing, movement, palpation, change in position Associated Symptoms: hurts to breathe Prior Chest Pain/Cardiac Workup: heart attack Nitro Today/Relief: no nitro taken today Aspirin Treatment Today: unknown Allergies/Adverse Reactions: No Known Drug Allergies Allergy (Verified 01/22/23 09:12) Home Medications: Levothyroxine Sodium 100 Mcg [Synthroid 100 Mcg] 100 mcg PO DAILY 10/24/18 [History] Simvastatin 10 mg PO HS 10/24/18 [History] Amlodipine Besylate 2.5 mg PO DAILY 01/24/19 [History] Sacubitril/Valsartan [Entresto 49 mg-51 mg Tablet] 1 tab PO BID 01/10/20 [History] Ca/D3/Mag Ox/Zinc/Water Pollution Scientist/Dario/Bor [Calcium 600+D3 Plus Caplet] 1 each PO DAILY 10/11/21 [History] Nitroglycerin 0.4 mg Tablet [Nitrostat 0.4 MG Tablet] 0.3 mg SL UD 10/11/21 [History] PANTOPRAZOLE 40 mg Tablet [Protonix 40MG Tablet] 40 mg PO DAILY 10/11/21 [History] Multivit-Min/FA/Lycopen/Lutein [Centrum Silver Ultra Men's Tab] 1 each PO DAILY 01/22/23 [History] Hx Tetanus, Diphtheria Vaccination/Date Given: Yes Hx Influenza Vaccination/Date Given: Yes Hx Pneumococcal Vaccination/Date Given: Yes Travel Risk - International Travel Have you traveled outside of the country in past 3 weeks: No - Coronavirus Screening Are you exhibiting any of the following symptoms?: No Close contact with a COVID-19 positive Pt in past 14-21 Days: No - Vaccine Status Have you recieved a Covid-19 vaccination: Yes 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[employer] - Vaccination Dates Date of 2cond Vaccination (if applicable): 2020 - Review of Systems Constitutional: No Symptoms Eyes: No Symptoms Ears, Nose, & Throat: No Symptoms Respiratory: Cough Cardiac: Chest Pain Abdominal/Gastrointestinal: No Symptoms Genitourinary Symptoms: No Symptoms Musculoskeletal: No Symptoms Neurological: No Symptoms Psychological: No Symptoms Endocrine: No Symptoms Immunological/Allergic: No Symptoms - Past Medical History Pertinent Past Medical History: Yes Neurological History: Stroke ENT History: Cataracts Cardiac History: Arrhythmia, Congestive Heart Failure, Coronary Artery Disease, High Cholesterol, Hypertension, Myocardial Infarction ([place]) Respiratory History: Bronchitis, CHF Endocrine Medical History: Hypothyroidism Musculoskeletal History: Osteoarthritis GI Medical History: GERD History: Renal Disease Psycho-Social History: No Pertinent History Female Reproductive Disorders: No Pertinent History Other Medical History: PMHX: A-FIB, STENT PLACEMENT X 2, PARTIAL HYSTERECTOMY 10 YEARS - Past Surgical History Past Surgical History: Yes Neuro Surgical History: No Pertinent History Cardiac: Cardiac Catheterization, Cardiac Stent Respiratory: No Pertinent History Gastrointestinal: No Pertinent History Genitourinary: No Pertinent History Musculoskeletal: No Pertinent History Female Surgical History: Hysterectomy Other Surgical History: 2 cardiac stents in 2005, watchman placed 2021 - Social History Smoking Status: Former smoker Exposure to second hand smoke: No Drug Use: none Patient Lives Alone: No - Nursing Vital Signs Nursing Vital Signs: Initial Vital Signs Temperature 97.0 F 04/12/23 23:23 Pulse Rate 65 04/12/23 23:23 Respiratory Rate 16 04/12/23 23:23 Blood Pressure 144/111 04/12/23 23:23 O2 Sat by Pulse Oximetry 96 04/12/23 23:23 Pain Scale Pain Intensity 4 - Physical Exam General Appearance: no apparent distress, alert Eye Exam: PERRL/EOMI Ears, Nose, Throat Exam: normal ENT inspection Neck Exam: normal inspection, non-tender, supple, full range of motion Respiratory Exam: normal breath sounds, chest tenderness (Left lower chest wall lateral to xiphisternum about 3 cm area without crepitus, no paradoxical chest movement with breathing.), lungs clear Cardiovascular Exam: regular rate/rhythm, normal heart sounds Gastrointestinal/Abdomen Exam: soft, normal bowel sounds, No tenderness Back Exam: normal inspection, normal range of motion Extremity Exam: normal inspection Neurologic Exam: alert, oriented x 3, cooperative, normal mood/affect Skin Exam: normal color SpO2 Interpretation: normal SpO2: 96 O2 Delivery: Room Air Ordered Tests: Active Orders 24 hr Category Date Time Status CHEST 1 VIEW (PORTABLE) Stat Exams 04/13/23 00:01 Completed RIBS UNILATERAL Stat Exams 04/13/23 00:01 Completed Medication Summary Discontinued Medications Generic Name Dose Route Start Last Admin Trade Name Jeffreyq PRN Reason Stop Dose Admin Acetaminophen 975 mg 04/12/23 23:49 04/12/23 23:58 Acetaminophen 325 Mg Tablet PO 04/12/23 23:50 975 mg STAT ONE Administration Acetaminophen Confirm 04/12/23 23:57 Acetaminophen 325 Mg Tablet Administered 04/12/23 23:58 Dose 975 mg .ROUTE .STK-MED ONE - Progress Progress: improved, re-examined Air Movement: good Progress Note: 04/12/23 23:56 87-year-old female with multiple medical problems including atrial fibrillation, coronary artery disease, hypertension, hyperlipidemia presented in the ER with chief complaint of left anterior lower chest wall pain at the base of rib cage and manubrial sternum area for last 5 days after she had a coughing spell. Patient reports dull aching to sharp pain and got worse this evening after she coughed really hard. Patient reports improvement in the pain on its own on the way to the ER. Currently she has minimal pain. No difficulty breathing. Patient reports it hurts to take deep breath, cough, movements, palpation. She does not think it is cardiac and does not want cardiac work-up even EKG. Daughter is also involved in decision making of not doing this work-up. They do understand the risk of not doing PE/cardiac work-up and missing important piece of information in the process of diagnosis. I will obtain x-rays chest and rib series, does not want any stronger pain medications but Tylenol which is ordered. Patient does have point tenderness and I believe has musculoskeletal pain. Blood Culture(s) Obtained: No Antibiotics given: No Counseled pt/family regarding: diagnosis, need for follow-up, rad results Medical Desision Making - Diagnostic Testing Diagnostic test were ordered, analyzed, and reviewed by me: Yes Radiological Interpretation: Reviewed by me, Teleradiologist Report - Departure Departure Disposition: Home Clinical Impression: Chest wall muscle strain Condition: Stable Critical Care Time: No Referrals: ADAN WILLSON MD [Primary Care Provider] - Follow up with PCP 1 day Instructions: Bruised Rib Additional Instructions: Take Tylenol as needed for pain. Do deep breathing exercises. Follow-up with primary care for reevaluation. Return to ER for intractable pain, difficulty breathing etc.
[2023-04-12] MEDS ORDERED: TYLENOL 325 MG ONE (23:57)
--- NOTE | 2023-04-13 02:26 | XRAY ---
CLINICAL HISTORY:CHEST PAIN/COUGH COMPARISON:None; TECHNIQUES:X-ray of the chest showing 1 view: PA view; FINDINGS: No lung consolidation or collapse. Redemonstration of harish hilar harish bronchial cuffing. Emphysematous both upper lung lobes. Mild to moderate cardiomegaly with the unfolding of the aorta and aortic knuckle calcifications. Stable dense nodular opacity at the right upper zone measuring about 12 mm. Mild convexity of the thoracic spine with convexity towards the right. The costophrenic and cardiophrenic angles are clear. Reduced background bone density. No fracture is seen. IMPRESSION: 1-Redemonstration of harish hilar harish bronchial cuffing, concerning for bronchitis. No lung consolidation or collapse. 2-Emphysematous both upper lung lobes consistent with chronic obstructive pulmonary disease [COPD], stable. 3-Stable dense nodular opacity at right upper zone measuring about 12 mm representing calcified granuloma. 4-Moderate cardiomegaly. Further cardiac evaluation is recommended. Electronically Signed by: Skyler Hanna MD. (04/13/2023 01:19:06 PHP ENGINEER)
--- NOTE | 2023-04-13 02:30 | XRAY ---
CLINICAL HISTORY:CHEST WALL PAIN COMPARISON:None; TECHNIQUES:X-ray of the left sided ribs were obtained in 2 views: AP and oblique views; FINDINGS: Markedly reduced bone density. S-shaped scoliosis of the thoracolumbar spine. There is no evidence of left sided rib fracture or other skeletal abnormality. No evidence of pneumothorax. The visualized soft tissues appear unremarkable. IMPRESSION: 1-Markedly reduced bone density. 2-S-shaped scoliosis of the thoracolumbar spine. 3-No left-sided rib fracture is seen. DISCLAIMER: A subtle bone abnormality or fracture may not be readily apparent on x-rays, thus clinical correlation and further imaging including follow up CT, MRI, or follow up x-rays are advised as needed. Electronically Signed by: Skyler Hanna MD. (04/13/2023 01:25:07 DOOR REPAIRMAN)
[2023-04-13 02:45] VITALS: BP 143/82; PULSE 85
== END 2023-04-13 03:01 | disposition home or self-care (01) ==
LOC: ED 22:09
DX: S29.011A Strain of muscle and tendon of front wall of thorax, initial encounter (principal); X50.0XXA Overexertion from strenuous movement or load, initial encounter; R07.9 Chest pain, unspecified; I11.0 Hypertensive heart disease with heart failure; I50.9 Heart failure, unspecified; E78.5 Hyperlipidemia, unspecified; Z79.899 Other long term (current) drug therapy
CPT/HCPCS: 71045; 71100; 99283; A9270-GY